=== PATIENT | male | born 1960 | race Caucasian/White ===

== ENCOUNTER 2021-03-28 08:01 | Outpatient (REF) | payer OTHER, SELFPAY ==
[2021-03-28 08:33] LABS: Hematocrit 48.8 % (42.0-52.0); Hemoglobin 16.1 g/dl (14.0-18.0); Mean Corpuscular Hemoglobin 29.6 pg (27.0-33.0); Mean Corpuscular Volume 89.7 fL (80.0-98.0); Mean Platelet Volume 10.4 fL (9.4-12.4); Platelet Count 189 X10*3/uL (160-400); Red Blood Count 5.44 X10*6/uL (4.60-5.80); Red Cell Distribution Width 13.9 % (11.0-16.0); White Blood Count 5.5 X10*3/uL (4.8-10.8)
[2021-03-28 08:56] LABS: Alanine Aminotransferase 33 U/L (0-40); Albumin Level 4.1 g/dL (3.5-5.0); Alkaline Phosphatase 77 U/L (39-117); Anion Gap 9 (12-20); Aspartate Amino Transferase 23 U/L (5-37); Bilirubin Total 0.6 mg/dL (0.0-1.0); Blood Urea Nitrogen 17 mg/dL (9-16); Calcium 9.8 mg/dL (8.4-10.2); Carbon Dioxide 27 mmol/L (22-29); Chloride 111 mmol/L (96-108); Cholesterol 210 mg/dL; Estimated Glomerular Filt Rate > 60; Glucose Fasting 107 mg/dL (60-99); HDL Cholesterol 41 mg/dL; Iron 93 mcg/dL (45-160); LDL Cholesterol Calculated 153 mg/dl; Percent Iron Saturation 37 % (15-50); Potassium 4.9 mmol/L (3.3-5.1); Sodium 142 mmol/L (135-145); Total Iron Binding Capacity 251 mcg/dL (228-428); Triglycerides 83 mg/dL; Unsaturated Iron Binding 158 ug/dL
[2021-03-28 09:01] LABS: Estimated Average Glucose 111 mg/dL; Hemoglobin A1c % 5.5 %
[2021-03-28 09:06] LABS: Rheumatoid Factor < 15.0 IU/mL (<15.0)
[2021-03-28 09:16] LABS: Vitamin D 25-OH Total 32.8 ng/mL (>30)
[2021-03-28 09:29] LABS: Folate 8.9 ng/mL (> or = 4.0); Vitamin B12 468 pg/mL (200-900)
[2021-03-28 09:47] LABS: Free T4 (Free Thyroxine) 0.85 ng/dL (0.71-1.85)
[2021-03-30 12:57] LABS: Anti Nuclear Antibody Screen NEGATIVE (NEGATIVE)
[2021-03-31 00:33] LABS: Cyclic Citrullinated Peptide <16 UNITS
[2021-04-03 15:02] LABS: Testosterone, Free 97.7 pg/mL (35.0-155.0); Testosterone, Total 517 ng/dL (250-1100)
== END 2021-03-28 08:02 | disposition home or self-care (01) ==
LOC: HO.LAB 08:01
PROVIDERS: PCP Physician Assistant; Visit Provider Physician Assistant
DX: Z13.220 Encounter for screening for lipoid disorders (principal); Z13.1 Encounter for screening for diabetes mellitus; D50.9 Iron deficiency anemia, unspecified; R53.82 Chronic fatigue, unspecified; R79.89 Other specified abnormal findings of blood chemistry
CPT/HCPCS: 36415; 80053; 80061; 82306; 82607; 82746; 83036; 83540; 84402; 84403; 84439; 84443; 85027; 86038; 86039; 86200; 86431

== ENCOUNTER 2022-03-13 07:56 | Outpatient (REF) | payer BC, SELFPAY ==
[2022-03-13 08:55] LABS: Hematocrit 49.8 % (42.0-52.0); Hemoglobin 16.5 g/dl (14.0-18.0); Mean Corpuscular HGB Conc 33.1 g/dl (31.0-36.0); Mean Corpuscular Hemoglobin 29.4 pg (27.0-33.0); Mean Corpuscular Volume 88.6 fL (80.0-98.0); Mean Platelet Volume 10.7 fL (9.4-12.4); Platelet Count 276 X10*3/uL (160-400); Red Blood Count 5.62 X10*6/uL (4.60-5.80); Red Cell Distribution Width 12.9 % (11.0-16.0); White Blood Count 5.9 X10*3/uL (4.8-10.8)
[2022-03-13 09:50] LABS: Alanine Aminotransferase 32 U/L (0-40); Albumin Level 4.3 g/dL (3.5-5.0); Alkaline Phosphatase 83 U/L (39-117); Anion Gap 13 (12-20); Aspartate Amino Transferase 20 U/L (5-37); Bilirubin Total 0.6 mg/dL (0.0-1.0); Blood Urea Nitrogen 16 mg/dL (9-16); Calcium 10.3 mg/dL (8.4-10.2); Carbon Dioxide 27 mmol/L (22-29); Chloride 107 mmol/L (96-108); Cholesterol 240 mg/dL; Estimated Glomerular Filt Rate > 60; Glucose Fasting 100 mg/dL (60-99); HDL Cholesterol 40 mg/dL; LDL Cholesterol Calculated 180 mg/dl; Sodium 142 mmol/L (135-145); TSH reflex Free T4 5.71 uIU/mL (0.32-4.0); Total Protein 7.1 g/dL (6.5-8.0); Triglycerides 100 mg/dL
[2022-03-13 11:08] LABS: Free T4 (Free Thyroxine) 1.07 ng/dL (0.71-1.85)
[2022-03-15 09:14] LABS: Lyme Abs Screen <0.90 index
[2022-03-20 13:39] LABS: Testosterone, Free 87.2 pg/mL (35.0-155.0); Testosterone, Total 570 ng/dL (250-1100)
[2022-03-22 11:29] LABS: Babesia IgG <1:64 titer (<1:64); Babesia IgM <1:20 titer (<1:20)
== END 2022-03-13 07:57 | disposition home or self-care (01) ==
LOC: HO.LAB 07:56
PROVIDERS: PCP Physician Assistant; Visit Provider Physician Assistant
DX: R79.89 Other specified abnormal findings of blood chemistry (principal); T14.8XXA Other injury of unspecified body region, initial encounter; Z13.220 Encounter for screening for lipoid disorders; Z13.1 Encounter for screening for diabetes mellitus; W57.XXXA Bitten or stung by nonvenomous insect and other nonvenomous arthropods, initial encounter; Y93.9 Activity, unspecified; Y92.9 Unspecified place or not applicable; Y99.9 Unspecified external cause status
CPT/HCPCS: 36415; 80053; 80061; 84402; 84403; 84439; 84443; 85027; 86617; 86618; 86753

== ENCOUNTER → 2022-03-28 07:56 | Outpatient (REF) | payer BC, SELFPAY ==
--- NOTE | 2022-03-28 08:03 | CA_ITS ---
Acquisition Time: 2022-03-28 08:17:11 Total Exercise Time: 00:12:00 Test Indications: CHRONIC FATIGUE Medications: Protocol: FRANKY Max HR: 171 BPM 106% of Pred: 160 BPM Max BP: 156/084 mmHG Max Work Load: 13.4 METS Exercise stress test with exercise 12 min of Franky protocol, achieving 105% MPHR, without anginal symptoms, with isolated PACs,and one atrial triplet, wiht normotensive response to exercise. with EKG changes meeting criteria for ischemia which corrects quickly in recovery then with residual borderline ST changes which could be nonspecific. Test reviewed with Dr Kevin Stone sent to PCP with report and recommendation for a stress echocardiogram for further evaluation. Referred By: Jp Yi Overread By: KAROLINA HAYENS
== END ==
LOC: HO.CARD 07:56
PROVIDERS: PCP Physician Assistant; Visit Provider Physician Assistant
DX: R53.82 Chronic fatigue, unspecified (principal)
CPT/HCPCS: 93017

== ENCOUNTER → 2022-04-06 10:51 | Outpatient (REF) | payer BC, SELFPAY ==
--- NOTE | 2022-04-06 10:55 | CA_ITS ---
Acquisition Time: 2022-04-06 11:21:31 Total Exercise Time: 00:12:00 Test Indications: ABN ETT Medications: SEE CHART Protocol: DYLON Max HR: 173 BPM 108% of Pred: 160 BPM Max BP: 196/100 mmHG Max Work Load: 13.4 METS Exercise stress test with exercise 12 min of Dylon protocol, achieving 100% MPHR 13.4 METs, without anginal symptoms, with isolated PAC, with hypertensive response to exercise with max BP 196/100, with borderline EKG change at peak, J point depression with slow upslope of ST then nonspecific ST sagging in recovery. Echo images obtained at rest and immediately post peak exercise. Definity contrast used. Test reviewed with Dr Benitez Referred By: Jp Yi Overread By: KAROLINA HAYNES
== END ==
LOC: HO.CARD 10:51
PROVIDERS: PCP Physician Assistant; Visit Provider Physician Assistant
DX: R94.39 Abnormal result of other cardiovascular function study (principal)
CPT/HCPCS: 93350; Q9957

== ENCOUNTER 2023-03-20 08:19 | Outpatient (AMB) | payer BC, SELFPAY ==
[2023-03-20 08:39] VITALS: BP 140/80; PULSE 72; O2SAT 97; BMI 27.8
--- NOTE | 2023-03-20 08:39 | A.OFFPC_ITS ---
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: No Accompanied by: Self / Same As Patient Allergies No Known Allergies Allergy (Verified 03/20/23 09:14) Medication List - Last Reconciled 03/20/23 by Jp Yi PA-C No Known Home Meds Tobacco use date assessed: 03/20/23 Dental Screening Dental Screen Date: 03/20/23 Did you have a dental visit in the last 12 months?: Yes Did you have a dental problem in the last 6 months where you did not have access to dental care?: No Was dental information given to patient?: Patient has dentist HPI Annual Exam HPI Details Patient is a 62 year-old male here today for annual physical PMHx : Throat cancer in s/p? chemo/ Radiation in 2018 , Report having chronic fatigue ever since? Has had low testoserone? and was placed on medication though never helped as chronic fatigue. Still continues to complain of s fatigue on exertion. He reports he is still able to run 3 miles though becomes very fatigued more than usual. We have done labs including Lyme testing and mono testing which were all negative. Does have an elevated TSH and was started on levothyroxine though felt it made no difference in stop medication. Has been trying to lose weight and has lost 15 lb since last office visit. He denies any chest discomfort or shortness of breath. . .. History of throat cancer: Has followed up with ENT specialist and received a fiberoptic scope without any recurrence of malignancy noted. .. hypothyroid: Patient's TSH is still remains slightly elevated. Was on levothyroxine in the past though felt it did not help him with his energy. Recommended to restart levothyroxine to help normalize his TSH number though patient declines at this time and still considering. Vaccine: UTD with COVID Vaccine,? Declines Flu vacine.? UTD with Tdap, declines Shindrex. .. Colon cancer screening:? Has not had a colonoscopy, declines further colonoscopies at this time. Of note does have a father who had pancreatic cancer in his 80s. 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 Current occupational exposures/hazards: No Cognitive needs: No Hearing needs: No Vision needs: Yes Questionnaire PHQ-9 Over the last 2 weeks, how often have you been bothered by any of the following problems? 1. Little interest or pleasure in doing things: not at all 2. Feeling down, depressed, or hopeless: not at all 3. Trouble falling or staying asleep, or sleeping too much: not at all 4. Feeling tired or having little energy: not at all 5. Poor appetite or overeating: not at all 6. Feeling bad about yourself - or that you are a failure or have let yourself or your family down: not at all 7. Trouble concentrating on things, such as reading the newspaper or watching television: not at all 8. Moving or speaking so slowly that other people could have noticed. Or the opposite - being so fidgety or restless that you have been moving around a lot more than usual: not at all Depression Screening Interpretation: Negative Depression Screening Done: Yes 35468 - PHQ-9 Billing: Yes Source: Developed by Drs. Steve Gutierrez, Tala Pelletier, Shaquille Christine and colleagues, with an educational shahida from [employer]. Thrive Questionnaire Date Thrive assessed: 03/20/23 I am a: Patient What is your living situation today?: I have a steady place to live Within the past 12 months, did the food you bought not last and you didn't have the money to get more?: Never true Within the past 12 months, did you worry whether your food would run out before you got money to buy more?: Never true Do you have trouble paying for medicines?: No Do you have trouble getting transportation to medical appointments?: No Do you have trouble paying your heating and electricity bill?: No Do you have trouble taking care of your child, family member or friend?: No Do you have trouble with day-to-day activities such as bathing, preparing meals, shopping, managing finances, etc.?: No Are you currently unemployed and looking for a job?: No Are you interested in more education?: No Please select the resources that you would like help with: None Currently or been in a relationship where the following occur: no concerns reported AUDIT C Alcohol Use Questionnaire (AUDIT-C) 1. How often do you have a drink containing alcohol?: Never 3. How often do you have six or more drinks on one occasion?: Never Total Score: 0 NEEL-7 AMB Questionnaire NEEL-7 Date NEEL - 7 assessed: 03/20/23 Feeling nervous, anxious, or on edge: 0 = Not at all Not being able to stop or control worryin = Not at all Worrying too much about different things: 0 = Not at all Trouble relaxin = Not at all Being so restless that it is hard to sit still: 0 = Not at all Becoming easily annoyed or irritable: 0 = Not at all Feeling afraid as if something awful might happen: 0 = Not at all Total NEEL-7 score (0-4 normal; 5-9 mild; 10-14 moderate; 15-21 severe): 0 Source: Developed by Drs. Steve Gutierrez, Tala Pelletier, Shaquille Christine and colleagues, with an educational shahida from [employer]. NEEL-7 Assessment Billing NEEL-7 Assessment Tool: NEEL-7 Assessment 51400 Review of Systems Const Denies body aches, Denies chills, Denies excessive sweating, Denies fatigue, Denies fever(s) and Denies headache(s) Eyes Denies blurry vision ENT Denies dysphagia, Denies vertigo, Denies dizziness, Denies headache(s), Denies hearing loss and Denies tinnitus Card Denies chest pain, Denies chest pain with activity, Denies syncope, Denies irregular heart rhythm and Denies dyspnea Resp Denies chest congestion, Denies cough, Denies hemoptysis, Denies dyspnea and Denies wheezing GI Denies abdominal pain, Denies melena, Denies hematochezia, Denies coffee ground emesis, Denies dysphagia, Denies diarrhea, Denies nausea and Denies vomiting Denies difficulty urinating, Denies dysuria, Denies urinary frequency, Denies urinary hesitancy and Denies urinary urgency Musc Denies arthralgias, Denies limited range of motion, Denies muscle cramps and Denies muscle weakness Skin/Breast Denies rash and Denies skin ulcer Neuro Denies Abnormal speech present, Denies confusion, Denies vertigo, Denies dizziness, Denies syncope, Denies headache(s), Denies memory loss and Denies seizure-like activity Psych Denies anxiety, Denies confusion, Denies depression, Denies memory loss, Denies panic attacks and Denies paranoia Endo Denies excessive sweating, Denies fatigue, Denies flushing, Denies polydipsia and Denies polyuria Aller/Immun Denies wheezing Physical exam (Primary Care) Vital Signs: Last Vital Signs Pulse 72 03/20/23 08:39 BP 140/80 H 03/20/23 08:39 Pulse Ox 97 03/20/23 08:39 Oxygen Delivery Method Room Air 03/20/23 08:39 BMI result Body Mass Index 27.8 Tobacco/Smoking Status: Tobacco use Status Tobacco use date assessed 03/20/23 03/20/23 08:46 Patient Tobacco Use Status Never used Tobacco 03/20/23 09:18 e-Cigarette/Vaping Use Never Used 03/20/23 09:18 Depression Screening Interpretation: Negative Thrive Assessment: Date of Thrive Assessment Date Thrive assessed 03/20/23 03/20/23 08:46 Currently or been in a relationship where the following occur: no concerns reported Const General: cooperative, comfortable, no acute distress, alert and awake; No confusion Orientation/consciousness: oriented to person, oriented to place, patient oriented x3 and No confusion HENMT Head: Yes normocephalic Ears: external ears normal and TM's normal bilaterally Face and sinus: No sinus tenderness Mouth: Normal oral and palatal mucosa present and tongue normal Teeth and gingiva: dentition normal and gingiva normal Throat: Yes posterior oropharynx normal, Yes tonsils normal and Yes uvula midline Eyes Conjunctivae: conjunctivae normal Sclerae: sclerae normal Pupils: Equal, round and reactive pupils present EOM: EOMs intact bilaterally Direct Ophthalmoscopy: No no photophobia Neck Neck: Yes no lymphadenopathy, No tender and Yes no JVD Thyroid: Thyroid normal Carotids: no bruits Chest Chest palpation & inspection: no tenderness Resp Effort & Inspection: normal respiratory effort, no audible wheezes, not labored and no stridor Auscultation: no crackles, no rales, no rhonchi and no wheezes Cardio Jugular venous distension: no JVD Rate: regular rate, not bradycardic and not tachycardic Rhythm: regular rhythm Bruits: no carotid bruits Peripheral pulses: Peripheral pulses 2+ throughout GI Inspection: Yes normal to inspection, No abdominal wall ecchymosis and No visible herniation Palpation (GI): Soft to palpation, nontender, no guarding, not rigid and No hepatosplenomegaly present Auscultation: normoactive bowel sounds General: Yes no CVA tenderness Back/Spine/Pelvis Back: no CVA tenderness and No back tenderness Cervical Spine: cervical ROM normal Thoracic/Lumbar Spine: thoracic and lumbar spine normal to inspection, straight leg raise negative bilaterally, No thoraco-lumbar ROM limited and No lumbar spinal tenderness Skin Lesions: no lesions Rashes: no rashes Wounds: no wounds Neuro General: oriented to person, oriented to place, patient oriented x3, CN's II-XI intact bilaterally and No confusion Cranial nerves: Yes Equal, round and reactive pupils present and Yes Normal accommodation reflex present Cognition (Neuro): normal cognition Speech: No Abnormal speech present Gait exam (Neuro): Normal gait present Motor exam (neuro): 5/5 motor strength present throughout Extrem Right upper extremity: full ROM; no cyanosis Left upper extremity: full ROM; no cyanosis Right lower extremity: no edema Left lower extremity: no edema Psych Appearance: grossly normal Mental Status: mental status grossly normal Affect: normal affect Attitude: cooperative Thought process: Normal thought process present Assessment and Plan Assessment & Plan (1) Annual physical exam: Code(s): Z00.00 - Encounter for general adult medical examination without abnormal findings (2) Chronic fatigue: Code(s): R53.82 - Chronic fatigue, unspecified Plan: Unclear etiology to patient's chronic fatigue. Does hypothyroidism and felt that levothyroxine was not effective on reducing his insertional fatigue. We have sent him for cardiac echo exercise stress testing which was normal. (3) Elevated TSH: Code(s): R79.89 - Other specified abnormal findings of blood chemistry Plan: Patient's most recent labs showing elevated TSH. Was previously on levothyroxin e in the past though did not feel it was affective on reducing his chronic fatigue. (4) Elevated blood pressure reading: Code(s): R03.0 - Elevated blood-pressure reading, without diagnosis of hypertension Plan: Noted elevated blood pressure today in office. He does report having several c ups of coffee a day which he attributes to his high blood pressure. Will try to reduce his caffeine intake. Advised to monitor blood pressure at home with goal blood pressure to be below 140/90 Coding Level of Care Code Est Pt Prev Care 40-64y(86119) Diagnoses Annual physical exam Z00.00 Chronic fatigue R53.82 Elevated TSH R79.89 Elevated blood pressure reading R03.0 Additional Codes NEEL-7 Assessment Billing - NEEL-7 Assessment Tool: NEEL-7 Assessment 42412 ([id number])
== END 2023-03-20 09:34 | disposition home or self-care (01) ==
PROVIDERS: Visit Provider Physician Assistant
DX: Z00.00 Encounter for general adult medical examination without abnormal findings (principal); R53.82 Chronic fatigue, unspecified; R79.89 Other specified abnormal findings of blood chemistry; R03.0 Elevated blood-pressure reading, without diagnosis of hypertension
CPT/HCPCS: 99396

== ENCOUNTER 2024-03-23 07:55 | Outpatient (AMB) | payer OTHER, SELFPAY ==
--- NOTE | 2024-03-23 07:58 | A.OFFPC_ITS ---
Vital Signs 03/23/24 08:01 Height 6 ft 2 in Weight 228 lb BMI 29.3 BP 150/98 H Blood Pressure Location Lt brachial Position Sitting Pulse 68 Pulse Source Pulse Oximeter Pulse Oximetry (%) 98 Oxygen Delivery Method Room Air Intake Visit Reasons: Annual Exam Intake Note: Patient here for an annual physical exam Sports Commentator Required: No Accompanied by: Self / Same As Patient Allergies No Known Allergies Allergy (Verified 03/23/24 08:07) Medication List - Last Reconciled 03/23/24 by Jp Yi PA-C No Known Home Meds Tobacco use date assessed: 03/23/24 Dental Screening Dental Screen Date: 03/23/24 Did you have a dental visit in the last 12 months?: Yes Did you have a dental problem in the last 6 months where you did not have access to dental care?: No Was dental information given to patient?: Patient has dentist HPI Annual Exam HPI Details Patient is a 63 year-old male here today for annual physical PMHx : Throat cancer in s/p? chemo/ Radiation in 2018 , Report having chronic fatigue ever since? Has had low testoserone? and was placed on medication though never helped as chronic fatigue. Noted elevated blood pressure reading today in office. He does admit to drinking quite a bit of coffee per day Still continues to complain of s fatigue on exertion. He reports he is still able to run 3 miles though becomes very fatigued more than usual. We have done labs including Lyme testing and mono testing which were all negative. Does have an elevated TSH and was started on levothyroxine though felt it made no differe nce in stop medication. We have done cardiac stress testing including an echo stress which essentially was stable He denies any chest discomfort or shortness of breath. We done some preliminary tick-borne illness testing though was negative. .. History of throat cancer: Has followed up with ENT specialist and received a fiberoptic scope without any recurrence of malignancy noted. .. hypothyroid: Patient's TSH is still remains slightly elevated. Was on levothyroxine in the past though felt it did not help him with his energy. Recommended to restart levothyroxine to help normalize his TSH number though patient declines at this time and still considering. Vaccine: UTD with COVID Vaccine,? Declines Flu vacine.? UTD with Tdap, declines Shingrex. .. Colon cancer screening:? Has not had a colonoscopy, declines further colonoscopies at this time. Of note does have a father who had pancreatic cancer in his 80s. 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 Current occupational exposures/hazards: No Cognitive needs: No Hearing needs: No Vision needs: Yes Questionnaire PHQ-9 Over the last 2 weeks, how often have you been bothered by any of the following problems? 1. Little interest or pleasure in doing things: not at all 2. Feeling down, depressed, or hopeless: not at all 3. Trouble falling or staying asleep, or sleeping too much: nearly every day 4. Feeling tired or having little energy: nearly every day 5. Poor appetite or overeating: not at all 6. Feeling bad about yourself - or that you are a failure or have let yourself or your family down: not at all 7. Trouble concentrating on things, such as reading the newspaper or watching television: not at all 8. Moving or speaking so slowly that other people could have noticed. Or the opposite - being so fidgety or restless that you have been moving around a lot more than usual: not at all 9. Thoughts that you would be better off or of hurting yourself in some way: not at all Total score: 6 Depression Screening Interpretation: Negative Depression Screening Done: Yes 96850 - PHQ-9 Billing: Yes Source: Developed by Drs. Steve Gutierrez, Tala Pelletier, Shaquille Christine and colleagues, with an educational shahida from [employer]. Thrive Questionnaire Date Thrive assessed: 03/23/24 I am a: Patient What is your living situation today?: I have a steady place to live Within the past 12 months, did the food you bought not last and you didn't have the money to get more?: Never true Within the past 12 months, did you worry whether your food would run out before you got money to buy more?: Never true Do you have trouble paying for medicines?: No Do you have trouble getting transportation to medical appointments?: No Do you have trouble paying your heating and electricity bill?: No Do you have trouble taking care of your child, family member or friend?: No Do you have trouble with day-to-day activities such as bathing, preparing meals, shopping, managing finances, etc.?: No Are you currently unemployed and looking for a job?: No Are you interested in more education?: No Please select the resources that you would like help with: None Currently or been in a relationship where the following occur: No concerns repo rted THRIVE Score: 0 AUDIT C Alcohol Use Questionnaire (AUDIT-C) 1. How often do you have a drink containing alcohol?: Monthly or less 2. How many drinks containing alcohol do you have on a typical day when you are drinking?: 1 or 2 3. How often do you have six or more drinks on one occasion?: Never Total Score: 1 NEEL-7 AMB Questionnaire NEEL-7 Date NEEL - 7 assessed: 03/23/24 Feeling nervous, anxious, or on edge: 0 = Not at all Not being able to stop or control worryin = Not at all Worrying too much about different things: 0 = Not at all Trouble relaxin = Not at all Being so restless that it is hard to sit still: 0 = Not at all Becoming easily annoyed or irritable: 0 = Not at all Feeling afraid as if something awful might happen: 0 = Not at all Total NEEL-7 score (0-4 normal; 5-9 mild; 10-14 moderate; 15-21 severe): 0 Source: Developed by Drs. Steve Gutierrez, Tala Pelletier, Shaquille Christine and colleagues, with an educational shahida from [employer]. NEEL-7 Assessment Billing NEEL-7 Assessment Tool: NEEL-7 Assessment 66377 Review of Systems Const Denies body aches, Denies chills, Reports daytime sleepiness, Denies excessive sweating, Reports fatigue, Denies fever(s), Denies headache(s), Reports lethargy, Reports malaise and Reports weight gain Eyes Denies blurry vision ENT Denies dysphagia, Denies vertigo, Denies dizziness, Denies headache(s), Denies hearing loss and Denies tinnitus Card Denies chest pain, Denies chest pain with activity, Denies syncope, Denies irregular heart rhythm and Denies dyspnea Resp Denies chest congestion, Denies cough, Denies hemoptysis, Denies dyspnea and Denies wheezing GI Denies abdominal pain, Denies melena, Denies hematochezia, Denies coffee ground emesis, Denies dysphagia, Denies diarrhea, Denies nausea and Denies vomiting Denies difficulty urinating, Denies dysuria, Denies urinary frequency, Denies urinary hesitancy and Denies urinary urgency Musc Denies arthralgias, Denies limited range of motion, Denies muscle cramps and Denies muscle weakness Skin/Breast Denies rash and Denies skin ulcer Neuro Denies Abnormal speech present, Denies confusion, Denies vertigo, Denies dizziness, Denies syncope, Denies headache(s), Denies memory loss and Denies seizure-like activity Psych Denies anxiety, Denies confusion, Denies depression, Denies memory loss, Denies panic attacks and Denies paranoia Endo Denies excessive sweating, Reports fatigue, Denies flushing, Denies polydipsia and Denies polyuria Aller/Immun Denies wheezing Physical exam (Primary Care) Vital Signs: Last Vital Signs Pulse 68 03/23/24 08:01 BP 150/98 H 03/23/24 08:01 Pulse Ox 98 03/23/24 08:01 Oxygen Delivery Method Room Air 03/23/24 08:01 BMI result Body Mass Index 29.3 Tobacco/Smoking Status: Tobacco use Status Tobacco use date assessed 03/23/24 03/23/24 08:08 Patient Tobacco Use Status Never used Tobacco 03/23/24 08:11 e-Cigarette/Vaping Use Never Used 03/23/24 08:11 PHQ-9: PHQ-9 Score PHQ-9: Total score 6 03/24/24 07:39 Depression Screening Interpretation: Negative Thrive Assessment: Date of Thrive Assessment Date Thrive assessed 03/23/24 03/23/24 08:06 Currently or been in a relationship where the following occur: No concerns reported Const General: cooperative, comfortable, no acute distress, alert and awake; No confusion Orientation/consciousness: oriented to person, oriented to place, patient oriented x3 and No confusion HENMT Head: Yes normocephalic Ears: external ears normal and TM's normal bilaterally Face and sinus: No sinus tenderness Mouth: Normal oral and palatal mucosa present and tongue normal Teeth and gingiva: dentition normal and gingiva normal Throat: Yes posterior oropharynx normal, Yes tonsils normal and Yes uvula midline Eyes Conjunctivae: conjunctivae normal Sclerae: sclerae normal Pupils: Equal, round and reactive pupils present EOM: EOMs intact bilaterally Direct Ophthalmoscopy: No no photophobia Neck Neck: Yes no lymphadenopathy, No tender and Yes no JVD Thyroid: Thyroid normal Carotids: no bruits Chest Chest palpation & inspection: no tenderness Resp Effort & Inspection: normal respiratory effort, no audible wheezes, not labored and no stridor Auscultation: no crackles, no rales, no rhonchi and no wheezes Cardio Jugular venous distension: no JVD Rate: regular rate, not bradycardic and not tachycardic Rhythm: regular rhythm Bruits: no carotid bruits Peripheral pulses: Peripheral pulses 2+ throughout GI Inspection: Yes normal to inspection, No abdominal wall ecchymosis and No visible herniation Palpation (GI): Soft to palpation, nontender, no guarding, not rigid and No hepatosplenomegaly present Auscultation: normoactive bowel sounds General: Yes no CVA tenderness Back/Spine/Pelvis Back: no CVA tenderness and No back tenderness Cervical Spine: cervical ROM normal Thoracic/Lumbar Spine: thoracic and lumbar spine normal to inspection, straight leg raise negative bilaterally, No thoraco-lumbar ROM limited and No lumbar spinal tenderness Skin Lesions: no lesions Rashes: no rashes Wounds: no wounds Neuro General: oriented to person, oriented to place, patient oriented x3, CN's II-XI intact bilaterally and No confusion Cranial nerves: Yes Equal, round and reactive pupils present and Yes Normal accommodation reflex present Cognition (Neuro): normal cognition Speech: No Abnormal speech present Gait exam (Neuro): Normal gait present Motor exam (neuro): 5/5 motor strength present throughout Extrem Right upper extremity: full ROM; no cyanosis Left upper extremity: full ROM; no cyanosis Right lower extremity: no edema Left lower extremity: no edema Psych Appearance: grossly normal Mental Status: mental status grossly normal Affect: normal affect Attitude: cooperative Thought process: Normal thought process present Office Procedures Flu Questionnaire Does the patient have a severe egg allergy?: No Immunizations Fluarix Triv [id number] (PF) 45 mcg (15 mcg x 3)/0.5 mL IM syringe Performing Provider: Jp Yi PA-C [facility] Documented (not given) by: LEVI Santacruz on 03/23/24 08:06 Reason Not Given: Patient Refused Coding Level of Care Code Est Pt Prev Care 40-64y(72917) Diagnoses Annual physical exam Z00.00 Elevated TSH R79.89 Screening for diabetes mellitus (DM) Z13.1 Mixed hyperlipidemia E78.2 Hyperlipidemia type: mixed hyperlipidemia Colon cancer screening declined Z53.20 Chronic fatigue syndrome G93.32 Additional Codes NEEL-7 Assessment Billing - NEEL-7 Assessment Tool: NEEL-7 Assessment 65699 ([id number]) PHQ-9 - 25703 - PHQ-9 Billing: Yes ([id number]) Assessment & Plan Assessment & Plan (1) Annual physical exam: Code(s): Z00.00 - Encounter for general adult medical examination without abnormal findings Category: Medical Plan: As per HPI (2) Elevated TSH: Code(s): R79.89 - Other specified abnormal findings of blood chemistry Category: Medical Plan: As per HPI P, patient does hypothyroidism evidenced by elevated TSH. Has been on levothyroxine in the past though never felt any different. Of note well on levothyroxine at did stabilize his TSH numbers though again did not feel much different from a clinical standpoint. (3) Screening for diabetes mellitus (DM): Code(s): Z13.1 - Encounter for screening for diabetes mellitus Category: Medical Plan: As per HPI (4) HLD (hyperlipidemia): Code(s): E78.5 - Hyperlipidemia, unspecified Category: Medical Qualifiers: Hyperlipidemia type: mixed hyperlipidemia Qualified Code(s): E78.2 - Mixed hyperlipidemia Plan: Patient's most recent lipid panel showing high cholesterol 240. Will continue to work on lifestyle and dietary modifications. (5) Colon cancer screening declined: Code(s): Z53.20 - Procedure and treatment not carried out because of patient's decision for unspecified reasons Category: Medical Plan: Declines any sort of colon cancer screening. Of note has a family history of pancreatic cancer (6) Chronic fatigue syndrome: Code(s): G93.32 - Myalgic encephalomyelitis/chronic fatigue syndrome Category: Medical Plan: As per HPI patient has had several years chronic fatigue particularly on physical exertion. He reports he is not able to be as physically as he once was due to his continued fatigue. He reports he sleeps well at night and gets 7-8 hours of restless sleep at night though never feels completely rested when he wakes up. We did discuss possibly doing a home sleep study to see if he has a obstructive sleep apnea though has not been told he had any apneic episodes or excessive snoring at night by his . We have done extensive workup including testosterone testing, lab testing, stress echo and tick-borne illness testing though has been unrevealing. He will reach out to tick-borne illness specialist in [place] ( Dr rojas) Orders: Orders Influenza [id number] Immunization 03/23/24 Z23 - Encounter for immunization Comprehensive [place]. Panel Fast 03/23/24 Z13.1 - Encounter for screening for diabetes mellitus TSH reflex Free T4 03/23/24 R79.89 - Other specified abnormal findings of blood chemistry Complete Blood Count no Diff 03/23/24 R79.89 - Other specified abnormal findings of blood chemistry Prostate Specific Antigen Scr 03/23/24 R79.89 - Other specified abnormal findings of blood chemistry, Z12.5 - Encounter for screening for malignant neoplasm of prostate Lipid Panel 03/23/24 E78.2 - Mixed hyperlipidemia
[2024-03-23 08:01] VITALS: BP 150/98; PULSE 68; O2SAT 98; BMI 29.3
== END 2024-03-23 08:35 | disposition home or self-care (01) ==
PROVIDERS: PCP Physician Assistant; Visit Provider Physician Assistant
DX: Z23 Encounter for immunization (principal)

== ENCOUNTER → 2024-03-23 07:55 | Outpatient (BNVA) | payer OTHER, SELFPAY | PROVIDERS: PCP Physician Assistant; Visit Provider Physician Assistant | DX: Z00.00 Encounter for general adult medical examination without abnormal findings (principal); R94.6 Abnormal results of thyroid function studies; E78.2 Mixed hyperlipidemia; G93.32 Myalgic encephalomyelitis/chronic fatigue syndrome | CPT/HCPCS: 90471; 96127 ==

== ENCOUNTER 2024-04-21 07:50 | Outpatient (REF) | payer OTHER, SELFPAY ==
[2024-04-21 08:32] LABS: Hematocrit 50.6 % (42.0-52.0); Hemoglobin 16.6 g/dl (14.0-18.0); Mean Corpuscular HGB Conc 32.8 g/dl (31.0-36.0); Mean Corpuscular Hemoglobin 29.3 pg (27.0-33.0); Mean Corpuscular Volume 89.2 fL (80.0-98.0); Mean Platelet Volume 10.5 fL (9.4-12.4); Platelet Count 197 X10*3/uL (160-400); Red Blood Count 5.67 X10*6/uL (4.60-5.80); Red Cell Distribution Width 13.6 % (11.0-16.0)
[2024-04-21 09:12] LABS: Alanine Aminotransferase 30 U/L (0-40); Albumin Level 4.3 g/dL (3.5-5.0); Alkaline Phosphatase 72 U/L (39-117); Anion Gap 11 (12-20); Aspartate Amino Transferase 27 U/L (5-37); Bilirubin Total 0.8 mg/dL (0.0-1.0); Blood Urea Nitrogen 17 mg/dL (9-16); Carbon Dioxide 25 mmol/L (22-29); Chloride 110 mmol/L (96-108); Cholesterol 209 mg/dL (<200); Estimated Glomerular Filt Rate > 60; Glucose Fasting 104 mg/dL (60-99); HDL Cholesterol 44 mg/dL (>40); LDL Cholesterol Calculated 147 mg/dL (<100); Potassium 4.7 mmol/L (3.3-5.1); Sodium 141 mmol/L (135-145); Total Protein 7.5 g/dL (6.5-8.0); Triglycerides 90 mg/dL (<150)
[2024-04-21 09:18] LABS: Prostate Specific Antigen Scr 3.23 ng/mL (<0.05-4.0)
[2024-04-21 09:30] LABS: TSH reflex Free T4 4.21 uIU/mL (0.32-4.0)
[2024-04-21 10:30] LABS: Free T4 (Free Thyroxine) 0.97 ng/dL (0.71-1.85)
== END 2024-04-21 07:51 | disposition home or self-care (01) ==
LOC: HO.LAB 07:50
PROVIDERS: PCP Physician Assistant; Visit Provider Physician Assistant
DX: R79.89 Other specified abnormal findings of blood chemistry (principal)
CPT/HCPCS: 36415; 80053; 80061; 84153; 84439; 84443; 85027

== ENCOUNTER 2024-04-28 12:31 | Outpatient (REF) | payer OTHER, SELFPAY ==
--- NOTE | ~2024-04-28 | CT_ITS ---
CLINICAL HISTORY: K42.9 - Umbilical hernia without obstruction or gangrene CT abdomen and pelvis with contrast Comparison: None Findings: No consolidation or effusion. Benign-appearing cysts within the left hepatic lobe measuring up to 2.3 cm. The gallbladder and biliary tree, spleen, pancreas and adrenal glands are unremarkable. Bilateral benign-appearing renal cysts, the largest measuring 7.3 cm arising from the left lower pole. Punctate nonobstructing stone in the mid right kidney. Indeterminate lesion arises exophytically from the posterior aspect of the right kidney measuring 1.9 cm on image 27 of series 3. No bowel obstruction, pneumoperitoneum, or pneumatosis. There is a fat-containing inguinal hernia that also contains a small portion of sigmoid colon. No inflammatory change. Bladder and prostate are unremarkable. Normal appendix. No adenopathy or fluid collections. Patent vasculature. No acute fracture. IMPRESSION: 1. Left inguinal hernia containing fat and small amount of sigmoid colon. No inflammation or obstruction. 2. Indeterminate exophytic mass arising from the posterior aspect of the right kidney. Recommend further characterization with MRI abdomen with and without contrast. At a minimum follow-up ultrasound is recommended. 3. Benign-appearing hepatic and renal cysts. This document has been electronically signed by: Audrey Sal MD on 04/29/2024 08:45:06
--- OUTSIDE RECORDS SUMMARY | 2024-04-28 13:26 | XMS_ITS | Data Portability ---
Author Organization [place] - [facility], Allergy Address [address] [address] Care Team Providers Care Fnps Name Role Phone YURIDIA MURGUIA Primary Care Provider Assessment Encounter Date Assessment Date Assessment LastModified by Organization Details LastModified Time 12/20/2023 12/20/2023 No evidence of disease on examination today. Fiberoptic examination of nasopharynx, hypopharynx and larynx was stable. Cancer surveillance in 12 months was recommended. He is aware that Dr Arnold dplosky Not available 12/20/2023 14:36:05 Plan of Treatment Reminders Order Date Submit Date Provider Last Modified By Organization Details Last Modified Time Details Appointments Establish ed 15 2024 09:00A M ZACH PERERA MD Not available Not available Not available Lab None recorded. Referral None recorded. Procedures None recorded. Surgeries None recorded. Imaging None recorded. Medication Orders None recorded. Patient TargetsNo targets recorded. Patient InstructionsNo instructions recorded. Reason for Referral None Reported. Problems Name Problem SNOMED Code Status Onset Date Resolution Date Notes Provider Name and Address Organization Details Recorded Time Gastroeso phageal reflux disease without esophagit is 696533453 Active 2016 Gastro-es ophageal reflux disease without esophagit is; Note: Date Diagnosed : 01/04/2017 9:54 AM (K21.9) Not Available [facility] 4 03:05:25 Sensorine ural hearing loss of bilateral ears 993424700 Active 2015 Sensorine ural hearing loss, bilateral ; Note: Date Diagnosed : 04/21/2015 11:21 AM (H90.3) Not Available [facility] 4 03:05:26 Follow-up visit Active 2019 Encounter for follow-up examinati on after completed treatment for malignant neoplasm; Note: Date Diagnosed : 04/13/2019 12:29 PM (Z08) Not Available [facility] 4 03:05:24 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; Note: Date Diagnosed : 5 10:04 AM (D37.02) Not Available [facility] 4 03:05:25 History of malignant neoplasm of tongue 890613001 Active 2019 Personal history of malignant neoplasm of tongue; Note: Date Diagnosed : 04/13/2019 12:29 PM (Z85.810) Not Available [facility] 4 03:05:26 Bilateral tinnitus 33095012982 02 Active 2015 Tinnitus, bilateral ; Note: Date Diagnosed : 03/08/2016 9:16 AM (H93.13) Not Available [facility] 4 03:05:24 Primary malignant neoplasm of base of tongue 09618945 Active 2014 Malignant neoplasm of dorsal surface of base of tongue; Note: Date Diagnosed : 03/03/2015 1:35 PM (C01) Not Available [facility] 4 03:05:25 History of primary malignant neoplasm of base of tongue 97224956118 642608 Active 2023 Primary tumor location: left base of the tongue Tumor staging: T2N2b SCCA Treatment : XRT chemo Date of treatment completio n:05/2015 Oncology team: Dr Arnold/Jostin PERERA MD [address] [place] [address], [phone] , [facility] - [facility] 4 19:32:40 Problem Notes None recorded. Procedures Surgical History Date Name Laterality Status Provider Name and Address Organization Details Recorded Time 12/20/2023 FOL_DP completed ZACH PERERA MD [address] [place] [address], [phone], [facility] - [facility] 12/19/2023 19:33:58 Imaging Results None recorded. Procedure Notes None recorded. Medical Equipment None Reported. Allergies No known drug allergies Medications Name Sig Start Date Stop Date Status Note LastModified by Organization Details LastModified Time clindamyc in HCl 300 mg capsule 1 capsule by mouth 12/19 completed Medicati on ID: [id number] D uration Value: 5 Prescri bed By Name: Narayan Morales nd Name: clindamy edwin HCl Send Method: E-Prescr ibed Sub s Allowed: subs OK Medic ationGen ericName : clindamy edwin HCl Not Available Not Available Not Available ibuprofen 800 mg tablet 12/19 completed Medicati on ID: [id number] Du ration Value: 10 Brand Name: ibuprofe n Send Method: E-Prescr ibed Sub s Allowed: subs OK Speci al Instruct ion: TAKE 1 TABLET BY MOUTH TWICE A DAY FOR 10 DAYS NEEDED M yamileth Prolayla Name: ibuprofe n Not Available Not Available Not Available Peridex 0.12 % mouthwash 12/19 completed Medicati on ID: [id number] P rescribe d By Name: Narayan Morales nd Name: Peridex Send Method: E-Prescr ibed Sub s Allowed: subs OK Speci al Instruct ion: 10 ml swish and spit TID x 2 week Med icationG enericNa me: Peridex Not Available Not Available Not Available oxycodone 5 mg/5 mL oral solution 5-10 ml by mouth 12/19 completed Medicati on ID: [id number] D uration Value: 7 Prescri bed By Name: Narayan Morales nd Name: oxycodon e Send Method: E-Prescr ibed Sub s Allowed: subs OK Medic ationGen ericName : oxycodon e Not Available Not Available Not Available Percocet 5 mg-325 mg tablet 1-2 tablet by mouth 12/19 completed Medicati on ID: [id number] Pr escribed By Name: Narayan Morales nd Name: Percocet Send Method: E-Prescr ibed Sub s Allowed: subs OK Medic ationGen ericName : Percocet Not Available Not Available Not Available Ciprodex 0.3 %-0.1 % ear drops,anyi pension 01/12 completed Medicati on ID: [id number] Du ration Value: 7 Reason: () Brand Name: Ciprodex Send Method: E-Prescr ibed Sub s Allowed: subs OK Speci al Instruct ion: PLACE 4 DROPS IN AFFECTED EAR(S) 2 TIMES PER DAY FOR 7 DAYS Med icationG enericNa me: Ciprodex Not Available Not Available Not Available Vitals Date Recorded Body height Body weight Provider Name and Address Organization Details Last Updated DateTime 12/20/2023 187.96 cm 78667.32 g Ivana Baron [place] - [facility] 12/20/2023 14:20:30 Social History None recorded. Functional Status None recorded. Mental Status None recorded. Family History Nothing Reported. Medical History No medical history recorded. Past Encounters Encounter ID Performer Location Encounter Start Date Encounter Closed Date Diagnosis/Indication Diagnosis SNOMED-CT Code Diagnosis ICD10 Code Diagnosis Note [id number] ZACH PERERA MD [facility] [address] [address] 12/20/2023 13:46:57 12/20/2023 14:39:12 History of primary malignant neoplasm of base of tongue [id number] Z85.810 Health Concerns Section Related Observation LastModified by Organization Detai ls LastModified Time None Recorded Concern Status LastModified by Organization Details LastModified Time None Recorded Advance Directives Directive None Recorded Payers Encounter Date Sequence Insurance Name Policy Number Policy Jackson Covered Member ID Jackson Member ID Guarantor Name 12/20/2023 1 [employer] [id number] Andre Lawler [id number] Andre Lawler Notes Date Note Type Note Provider Name and Address Organization Details Recorded Time 12/20/2023 text/html Primary tumor location: left base of the tongueTumor staging: T2N2b SCCATreatment: XRT chemoDate of treatment completion:05/2015 Oncology team: Dr Arnold/Debra no health changes ZACH PERERA MD [address] [place] [address], [phone], [facility] - [facility] 12/20/2023 14:36:24
[2024-04-28] MEDS: iohexoL 350 MG/ML 100 ML INFUS..BTL IV (14:02)
== END 2024-04-28 12:32 | disposition home or self-care (01) ==
LOC: HO.CT 12:31
PROVIDERS: PCP Physician Assistant; Visit Provider Physician Assistant
DX: K42.9 Umbilical hernia without obstruction or gangrene (principal)
CPT/HCPCS: 74177; Q9967

== ENCOUNTER → 2024-04-28 12:33 | Outpatient (BNV) | payer OTHER, SELFPAY | PROVIDERS: PCP Physician Assistant; Visit Provider Radiology Diagnostic Radiology | DX: K40.90 Unilateral inguinal hernia, without obstruction or gangrene, not specified as recurrent (principal); K56.41 Fecal impaction; K76.89 Other specified diseases of liver; N28.89 Other specified disorders of kidney and ureter | CPT/HCPCS: 74177 ==

== ENCOUNTER 2024-05-05 09:36 | Outpatient (AMB) | payer OTHER, SELFPAY ==
--- NOTE | 2024-05-05 09:40 | MHC.OFFVIS ---
Vital Signs 05/05/24 09:46 Height 6 ft 2 in Weight 232 lb BMI 29.8 Position Sitting BP not taken reason Patient Refused Pulse 76 Intake Visit Reasons: Unilateral inguinal hernia Intake Note: Patient referred by pcp Jp Yi PA-C for Unilateral inguinal hernia. Patient c/o: discomfort on LLQ. Denies trauma. Noticed after weight lifting. Abd/ pelvis US: 04-28-2024 [employer] Manager Required: No Allergies No Known Allergies Allergy (Verified 05/05/24 09:45) HPI Comments Details: Patient presents for evaluation of a symptomatic enlarging left inguinal hernia. He has had this several weeks time. His increasing in size and becoming more prominent. He would like to have repaired. He has no other GI issues or complaints. He does do occasional heavy lifting and workouts. Patient tolerates a regular diet. He is regular bowel habits. Chart was reviewed and patient evaluated. 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 Patient also has an incidental finding of a right kidney lesion which is being scheduled for follow-up with Urology. 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 Current occupational exposures/hazards: No Cognitive needs: No Hearing needs: No Vision needs: Yes Physical Exam Vital Signs: Last Vital Signs Pulse 76 05/05/24 09:46 BMI result Body Mass Index 29.8 Chest Other: Chest breath sounds bilaterally, HS 1 in 2 GI Other: Patient was examined both supine and standing with Valsalva. Abdomen is soft, benign. Right groin negative. Genitalia within normal limits. Very large reducible left inguinal hernia Assessment & Plan Assessment & Plan (1) Left groin hernia: Code(s): K40.90 - Unilateral inguinal hernia, without obstruction or gangrene, not specified as recurrent Category: Surgical Plan Risks, benefits, and alternatives of open left inguinal hernia repair with mesh were reviewed with the patient included but not limited to bleeding, infection, recurrence, numbness, pain, scarring the patient wished to proceed. All questions answered. Arrangements were made for this on a day which is convenient for him. Coding Level of Care Code New Pt Level 5 (28851) Diagnoses Left groin hernia K40.90
[2024-05-05 09:46] VITALS: PULSE 76; BMI 29.8
--- OUTSIDE RECORDS SUMMARY | 2024-05-05 10:09 | XMS_ITS | Data Portability ---
Author Organization [place] - [facility], Allergy Address [address] [address] Care Team Providers Care Radiology Services Manager Name Role Phone YURIDIA MURGUIA Primary Care [...] Gastroeso phageal reflux disease without esophagit is [id number] Active 2016 Gastro-es ophageal reflux disease without esophagit is; Note: Date Diagnosed : 01/04/2017 9:54 AM (K21.9) Not Available [facility] 4 03:05:25 Sensorine ural hearing loss of bilateral ears 870678388 Active 2015 Sensorine ural hearing loss, bilateral ; Note: Date Diagnosed : 04/21/2015 11:21 AM (H90.3) Not Available [facility] 4 03:05:26 Follow-up visit Active 2019 Encounter for follow-up examinati on after completed treatment for malignant neoplasm; Note: Date Diagnosed : 04/13/2019 12:29 PM (Z08) Not Available [facility] 4 03:05:24 Neoplasm of uncertain behavior of tongue 79809634 Active 2014 Neoplasm of uncertain behavior of tongue; Note: Date Diagnosed : 5 10:04 AM (D37.02) Not Available [facility] 4 03:05:25 History of malignant neoplasm of tongue 433934150 Active 2019 Personal history of malignant neoplasm of tongue; Note: Date Diagnosed : 04/13/2019 12:29 PM (Z85.810) Not Available [facility] 4 03:05:26 Bilateral tinnitus 92601724345 02 Active 2015 Tinnitus, bilateral ; Note: Date Diagnosed : 03/08/2016 9:16 AM (H93.13) Not Available [facility] 4 03:05:24 Primary malignant neoplasm of base of tongue 59229089 Active 2014 Malignant neoplasm of dorsal surface of base of tongue; Note: Date Diagnosed : 03/03/2015 1:35 PM (C01) Not Available [facility] 4 03:05:25 History of primary malignant neoplasm of base of tongue [id number] 886488 Active 2023 Primary tumor location: left base of the tongue Tumor staging: T2N2b SCCA Treatment : XRT chemo Date of treatment completio n:05/2015 Oncology team: Dr Arnold/Jostin PERERA MD [address] [place] [address], [phone] , [facility] 4 19:32:40 Problem Notes None recorded. Procedures Surgical History Date Name Laterality Status Provider Name and Address Organization Details Recorded Time 12/20/2023 FOL_DP completed ZACH PERERA MD [address] [place] [address], [phone], [facility] - [facility] 12/19/2023 19:33:58 Imaging Results None recorded. Procedure Notes None recorded. Medical Equipment None Reported. Allergies No known drug allergies Medications Name Sig Start Date Stop Date Status Note LastModified by Organization Details LastModified Time clindamyc in HCl 300 mg capsule 1 capsule by mouth 12/19 completed Medicati on ID: [id number] D uration Value: 5 Prescri bed By Name: Narayan Morales nd Name: clindamy edwin HCl Send Method: E-Prescr ibed Sub s Allowed: subs OK Medic ationGen ericName : clindamy edwin HCl Not Available Not Available Not Available ibuprofen 800 mg tablet 12/19 completed Medicati on ID: [id number] Du ration Value: 10 Brand Name: ibuprofe n Send Method: E-Prescr ibed Sub s Allowed: subs OK Speci al Instruct ion: TAKE 1 TABLET BY MOUTH TWICE A DAY FOR 10 DAYS NEEDED M yamileth nGeneric Name: ibuprofe n Not Available Not Available Not Available Peridex 0.12 % mouthwash 12/19 completed Medicati on ID: [id number] P rescribe d By Name: Narayan Morales nd Name: Peridex Send Method: E-Prescr ibed Sub s Allowed: subs OK Speci al Instruct ion: 10 ml swish and spit TID x 2 week Med icationG enericNa me: Peridex Not Available Not Available Not Available oxycodone 5 mg/5 mL oral solution 5-10 ml by mouth 12/19 completed Medicati on ID: [id number] D uration Value: 7 Prescri bed By Name: Narayan Morales nd Name: oxycodon e Send Method: E-Prescr ibed Sub s Allowed: subs OK Medic ationGen ericName : oxycodon e Not Available Not Available Not Available Percocet 5 mg-325 mg tablet 1-2 tablet by mouth 12/19 completed Medicati on ID: [id number] Pr escribed By Name: Narayan Morales nd Name: Percocet Send Method: E-Prescr ibed Sub s Allowed: subs OK Medic ationGen ericName : Percocet Not Available Not Available Not Available Ciprodex 0.3 %-0.1 % ear drops,anyi pension 01/12 completed Medicati on ID: [id number] Du ration Value: 7 Reason: () Brand [...] Details Last Updated DateTime 12/20/2023 187.96 cm 63141.32 g Ivana Baron [place] - [facility] 12/20/2023 14:20:30 Social History None recorded. Functional Status None recorded. Mental Status None recorded. Family History Nothing Reported. Medical History No medical history recorded. Past Encounters Encounter ID Performer Location Encounter Start Date Encounter Closed Date Diagnosis/Indication Diagnosis SNOMED-CT Code Diagnosis ICD10 Code Diagnosis Note [id number] ZACH PERERA MD [facility] [address] [address] 12/20/2023 13:46:57 12/20/2023 14:39:12 History of primary malignant neoplasm of base of tongue [id number] 8994347 Z85.810 Health Concerns Section Related Observation LastModified by Organization Detai ls LastModified Time None Recorded Concern Status LastModified by Organization Details LastModified Time None Recorded Advance Directives Directive None Recorded Payers Encounter Date Sequence Insurance Name Policy Number Policy Jackson Covered Member ID Jackson Member ID Guarantor Name 12/20/2023 1 [employer] [id number] Andre Lawler [id number] Andre Lawler Notes Date Note Type Note Provider Name and Address Organization Details Recorded Time 12/20/2023 text/html Primary tumor location: left base of the tongueTumor staging: T2N2b SCCATreatment: XRT chemoDate of treatment completion:05/2015 Oncology team: Dr Arnold/Debra no health changes ZACH PERERA MD [address] [place] [address], [phone], [facility] - [facility] 12/20/2023 14:36:24
== END 2024-05-05 10:02 | disposition home or self-care (01) ==
PROVIDERS: PCP Physician Assistant; Referring Provider Physician Assistant; Visit Provider Surgery
DX: K40.90 Unilateral inguinal hernia, without obstruction or gangrene, not specified as recurrent (principal)
CPT/HCPCS: 99204

== ENCOUNTER → 2024-05-05 09:36 | Outpatient (BNVA) | payer OTHER, SELFPAY | PROVIDERS: PCP Physician Assistant; Referring Provider Physician Assistant; Visit Provider Surgery ==

== ENCOUNTER → 2024-05-07 10:27 | Outpatient (BNV) | payer OTHER, SELFPAY | PROVIDERS: PCP Physician Assistant; Visit Provider Radiology Diagnostic Radiology | DX: N28.1 Cyst of kidney, acquired (principal) | CPT/HCPCS: 76775 ==

== ENCOUNTER 2024-05-29 08:03 | Day surgery (SDC) | payer OTHER, SELFPAY ==
--- OUTSIDE RECORDS SUMMARY | 2024-05-22 13:49 | XMS_ITS | Data Portability ---
Author Organization [place] - [facility], Allergy Address [address] [address] Care Team Providers Care Dry Chain Worker Name Role Phone YURIDIA MURGUIA Primary Care Provider [phone] Assessment Encounter Date Assessment Date Assessment LastModified [...] Gastroeso phageal reflux disease without esophagit is [id number] Active 2016 Gastro-es ophageal reflux disease without esophagit is; Note: Date Diagnosed : 01/04/2017 9:54 AM (K21.9) Not Available [facility] 4 03:05:25 Sensorine ural hearing loss of bilateral ears 094644942 Active 2015 Sensorine ural hearing loss, bilateral ; Note: Date Diagnosed : 04/21/2015 11:21 AM (H90.3) Not Available [facility] 4 03:05:26 Follow-up visit Active 2019 Encounter for follow-up examinati on after completed treatment for malignant neoplasm; Note: Date Diagnosed : 04/13/2019 12:29 PM (Z08) Not Available [facility] 4 03:05:24 Neoplasm of uncertain behavior of tongue 37305306 Active 2014 Neoplasm of uncertain behavior of tongue; Note: Date Diagnosed : 5 10:04 AM (D37.02) Not Available [facility] 4 03:05:25 History of malignant neoplasm of tongue 370359341 Active 2019 Personal history of malignant neoplasm of tongue; Note: Date Diagnosed : 04/13/2019 12:29 PM (Z85.810) Not Available [facility] 4 03:05:26 Bilateral tinnitus 45549855327 02 Active 2015 Tinnitus, bilateral ; Note: Date Diagnosed : 03/08/2016 9:16 AM (H93.13) Not Available [facility] 4 03:05:24 Primary malignant neoplasm of base of tongue 56122984 Active 2014 Malignant neoplasm of dorsal surface of base of tongue; Note: Date Diagnosed : 03/03/2015 1:35 PM (C01) Not Available [facility] 4 03:05:25 History of primary malignant neoplasm of base of tongue 10290674418 653462 Active 2023 Primary tumor location: left base of the tongue Tumor staging: T2N2b SCCA Treatment : XRT chemo Date of treatment completio n:05/2015 Oncology team: Dr Arnold/Jostin PERERA MD [address] [place] [address], [phone] , [facility] 4 19:32:40 Problem Notes None recorded. Procedures Surgical History Date Name Laterality Status Provider Name and Address Organization Details Recorded Time 12/20/2023 FOL_DP completed ZACH PERERA MD [address] [place] [address], [phone], [facility] - [facility] 12/19/2023 19:33:58 Imaging Results None recorded. Procedure Notes None recorded. Medical Equipment None Reported. Allergies No known drug allergies Medications Name Sig Start Date Stop Date Status Note LastModified by Organization Details LastModified Time clindamyc in HCl 300 mg capsule 1 capsule by mouth 12/19 completed Medicati on ID: [id number] D uration Value: 5 Prescri bed By Name: Narayan Morales nd Name: clindamy edwin HCl Send Method: E-Prescr ibed Sub s Allowed: subs OK Medic ationGen ericName : clindamy edwin HCl Not Available Not Available Not Available ibuprofen 800 mg tablet 12/19 completed Medicati on ID: [id number] Du ration Value: 10 Brand Name: ibuprofe n Send Method: E-Prescr ibed Sub s Allowed: subs OK Speci al Instruct ion: TAKE 1 TABLET BY MOUTH TWICE A DAY FOR 10 DAYS NEEDED M yamileth nGeneric Name: ibuprofe n Not Available Not Available Not Available Peridex 0.12 % mouthwash 12/19 completed Medicati on ID: [id number] P rescribe d By Name: Narayan Morales nd Name: Peridex Send Method: E-Prescr ibed Sub s Allowed: subs OK Speci al Instruct ion: 10 ml swish and spit TID x 2 week Med icationG enericNa me: Peridex Not Available Not Available Not Available oxycodone 5 mg/5 mL oral solution 5-10 ml by mouth 12/19 completed Medicati on ID: [id number] D uration Value: 7 Prescri bed By Name: Narayan Morales nd Name: oxycodon e Send Method: E-Prescr ibed Sub s Allowed: subs OK Medic ationGen ericName : oxycodon e Not Available Not Available Not Available Percocet 5 mg-325 mg tablet 1-2 tablet by mouth 12/19 completed Medicati on ID: [id number] Pr escribed By Name: Narayan Morales nd Name: Percocet Send Method: E-Prescr ibed Sub s Allowed: subs OK Medic ationGen ericName : Percocet Not Available Not Available Not Available Ciprodex 0.3 %-0.1 % ear drops,anyi pension 01/12 completed Medicati on ID: [id number] Du ration Value: 7 Reason: () Brand [...] Details Last Updated DateTime 12/20/2023 187.96 cm 84671.32 g Ivana Baron [place] - [facility] 12/20/2023 14:20:30 Social History None recorded. Functional Status None recorded. Mental Status None recorded. Family History Nothing Reported. Medical History No medical history recorded. Past Encounters Encounter ID Performer Location Encounter Start Date Encounter Closed Date Diagnosis/Indication Diagnosis SNOMED-CT Code Diagnosis ICD10 Code Diagnosis Note [id number] ZACH PERERA MD [facility] [address] [address] 12/20/2023 13:46:57 12/20/2023 14:39:12 History of primary malignant neoplasm of base of tongue [id number] 8022762 Z85.810 Health Concerns Section Related Observation LastModified by Organization Detai ls LastModified Time None Recorded Concern Status LastModified by Organization Details LastModified Time None Recorded Advance Directives Directive None Recorded Payers Encounter Date Sequence Insurance Name Policy Number Policy Jackson Covered Member ID Jackson Member ID Guarantor Name 12/20/2023 1 [employer] [id number] Andre Lawler [id number] Andre Lawler Notes Date Note Type Note Provider Name and Address Organization Details Recorded Time 12/20/2023 text/html Primary tumor location: left base of the tongueTumor staging: T2N2b SCCATreatment: XRT chemoDate of treatment completion:05/2015 Oncology team: Dr Arnold/Debra no health changes ZACH PERERA MD [address] [place] [address], [phone], [facility] - [facility] 12/20/2023 14:36:24
[2024-05-27 13:30] VITALS: BMI 29.8
--- NOTE | 2024-05-28 09:35 | HO.ANESPROP2 ---
Documented by User: Devora Miles NP 05/28/24 09:41 HPI - Anesthesia Eval Consult details Narrative: 63yo M for Left Hernia Inguinal Reducible with mesh Hx throat ca s/p radiation 2018 - follows ENT [facility] - last office visit 12/2023, note pending [facility] Active Problems Active Problems: All Active Problems Left groin hernia (Acute) Right kidney mass (Acute) Skin lesion (Acute) Umbilical hernia (Acute) Chronic fatigue syndrome (Acute) Colon cancer screening declined (Acute) HLD (hyperlipidemia) (Acute) Elevated blood pressure reading (Acute) Abnormal stress electrocardiogram test (Acute) Tick bite (Acute) Annual physical exam (Acute) Stress at work (Acute) Colon cancer screening (Acute) GERD (gastroesophageal reflux disease) (Acute) Chronic fatigue (Acute) Screening for hypercholesterolemia (Acute) Screening for diabetes mellitus (DM) (Acute) Elevated TSH (Acute) Low testosterone (Acute) Past Medical History Medical History History of throat cancer Family History Family History Father Pancreatic cancer Mother Lung cancer Surgical History Surgical History No pertinent past surgical history Social History Social History Housing: House Are you a primary wound care technician to a significant other at home: No Do you presently have visiting nurse or other home services: No Alcohol intake: current Alcohol intake frequency: holidays/special occasions only Patient Tobacco Use Status: Never used Tobacco e-Cigarette/Vaping Use: Never Used Second Hand Smoke Exposure: No Use of substances other than those prescribed or required for medical reasons: No Have you been hit, kicked, punched, or otherwise hurt by someone within the past year? 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 Current occupational exposures/hazards: No Cognitive needs: No Hearing needs: No Vision needs: Yes Meds Allergies Allergy/AdvReac Type Severity Reaction Status Date / Time No Known Allergies Allergy Verified 05/29/24 09:14 Exam Height,Weight and Vital Signs: Height 6 ft 2 in Weight 105.233 kg Pertinent Lab Results Pertinent Lab Results: Laboratory Tests 04/21/24 08:09 WBC 6.0 Hgb 16.6 Hct 50.6 Plt Count 197 D Sodium 141 Potassium 4.7 Chloride 110 H Carbon Dioxide 25 BUN 17 H Creatinine 1.18 Assessment and Plan Assessment Anesthesia Assessment: Chart Reviewed Documented by User: Fadumo Mcmahon MD 05/29/24 11:00 [facility] Past Medical History Medical History History of throat cancer Family History Family History Father Pancreatic cancer Mother Lung cancer Surgical History Surgical History No pertinent past surgical history History of Problems with Anesthesia: No Social History Social History Housing: House Are you a primary wound care technician to a significant other at home: No Do you presently have visiting nurse or other home services: No Alcohol intake: current Alcohol intake frequency: holidays/special occasions only Patient Tobacco Use Status: Never used Tobacco e-Cigarette/Vaping Use: Never Used Second Hand Smoke Exposure: No Use of substances other than those prescribed or required for medical reasons: No Have you been hit, kicked, punched, or otherwise hurt by someone within the past year? 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 Current occupational exposures/hazards: No Cognitive needs: No Hearing needs: No Vision needs: Yes Meds Allergies Allergy/AdvReac Type Severity Reaction Status Date / Time No Known Allergies Allergy Verified 05/29/24 09:14 Exam Airway Mallampati Class: II TM Dist: >3cm Neck ROM: Full Loose/Missing/Broken Teeth: No Heart: RRR Lungs: CTA Assessment and Plan Assessment Anesthesia Assessment: Anesthesia Plan Discussed Final Anesthetic Review History of Problems with Anesthesia: No NPO: Yes ASA Class: II Final Preanesthetic Review: Meds/Allgs Chart Reviewed, Consent Obtained/Reviewed and Anes Risks/Benef Reviewed Patient Risk: Low Procedure Risk: Low Anesthetic Plan Anesthetic Plan: GA Disposition: Standard PACU
--- NOTE | 2024-05-28 12:54 | P.HPSUR_ITS ---
Pre-Procedural Eval Section A - 24 Hr Update-Section A only Date of Service: 05/29/24 The patient is an INPATIENT: No Changes since office visit: No Cold of Flu in the past 2 weeks, No New Medical Problems, No Changes in Medication and No Patient answered all questions Section B - Complete if H&P > 30 days Chief Complaint: Unilateral inguinal hernia, without obstruction Allergies: Allergies Allergy/AdvReac Type Severity Reaction Status Date / Time No Known Allergies Allergy Verified 05/05/24 09:45 Review of Systems Sugical H&P ROS: Negative: Constitution, Cardiovascular, Respiratory, Neurological, Psychiatric, Hem-Onc, Allergic/Immunologic, Gastrointestinal, Genitourinary, Musculoskeletal, Integumentary, Endocrine and Eye s/Ears/Nose/Throat Exam Surgical H&P Exam: Normal: HEENT, Normal: Heart, Normal: Lungs, Normal: Extremities, Normal: Abdomen, Normal: Skin and Normal: Neurological Plan I have reviewed the history and physical and performed a pertinent physical examination on my patient. No changes have occurred unless specified. Time Spent With Patient Time: Total time managing care of this patient today ____ minutes.
[2024-05-29] VITALS (9 sets, daily range): BP systolic 123–148; BP diastolic 81–90; PULSE 63–78; RESP 12–17; TEMP 36.4–36.5; O2SAT 95–99; BMI 29.4
--- NOTE | ~2024-05-29 | XR_ITS ---
EXAMINATION: XR CHEST CLINICAL INFORMATION: Vomiting under anesthesia COMPARISON: None available. TECHNIQUE: Frontal view of the chest was obtained. FINDINGS: Mildly limited exam due to positioning. The left lateral thoracic wall has been excluded. The cardiac silhouette is prominent but may be magnified by AP technique. Mediastinal and hilar contours appear normal. Lungs demonstrate mild linear atelectasis left lower lung. Lungs otherwise clear. No pneumothorax or effusion. No focal osseous or soft tissue abnormality. Mild degenerative changes right shoulder joint. XR/XR chest 1V IMPRESSION: No active pulmonary disease. Electronically signed by: Viral Murdock MD 05/29/2024 02:07 PM [facility]
[2024-05-29] MEDS: Lactated Ringers 1,000 ML 100 ML IVCONT (09:36)
[2024-05-29] MEDS: ceFAZolin Sodium/Dextrose,Iso 2 GM/50 ML PIGGYBACK IV (11:25)
--- NOTE | 2024-05-29 13:07 | W.PM.OPN ---
Operative Note Operative Note Date of Service: 05/29/24 Narrative: Preoperative diagnosis: [] Symptomatic enlarging left inguinal hernia Postop diagnosis: [] The same Procedure [] open left inguinal herniorrhaphy Surgeon: [] Kam Job Service Specialist: [] Paula Type of Anesthesia: [] General Indication for surgery: [] Intraoperative findings demonstrated a large indirect left inguinal hernia. No direct hernia demonstrated. Please refer to anesthesia note regarding airway issues at completion of the case. Findings: [] Patient brought to the operating room, placed on operative table supine position, after an adequate level of general anesthesia was induced, the left groin was prepped and draped in usual sterile fashion using a small left para inguinal incision, this carried down through skin, subcutaneous tissue, Ashly's fascia. External oblique fibers were opened their direction with care to isolate and preserve the ilioinguinal nerve throughout the procedure. Spermatic cord was identified and retracted from the field. No direct hernia was demonstrated. A very large indirect hernia sac was identified and from the spermatic cord and reduced. An appropriately sized Bard plug was placed in the indirect defect, and sutured inferiorly to the inguinal ligament, and superiorly to the transversalis fascia using interrupted 0 Ethibond suture. At completion of procedure, mesh was in good position, with no tension or gaps, and covered the inguinal floor as well. Wound was irrigated, secured hemostasis, and closed in the following manner; external oblique fascia was closed using running 2-0 Vicryl suture. Ashly's fascia was reapproximated using interrupted 3-0 Vicryl suture. Interrupted inverted deep dermal 3-0 Vicryl sutures followed by running subcuticular 4-0 Vicryl sutures were placed. Steri-Strips and sterile dressings were applied. Wound was infiltrated at the beginning at the end with ilioinguinal block and local infiltration with 0.5% Marcaine/1% lidocaine. Sponge, needle, and instrument counts reported correct. Patient tolerated the procedure well and emerged from anesthesia stable condition. EBL minimal. Ipsilateral testicle was intrascrotal at completion.
== END 2024-05-29 14:47 | disposition home or self-care (01) ==
PROVIDERS: PCP Physician Assistant; Visit Provider Surgery
PROC: (CPT 49505; principal; 2024-05-29 10:50)
DX: K40.90 Unilateral inguinal hernia, without obstruction or gangrene, not specified as recurrent (principal); Z85.819 Personal history of malignant neoplasm of unspecified site of lip, oral cavity, and pharynx; Z92.3 Personal history of irradiation; Z92.21 Personal history of antineoplastic chemotherapy
CPT/HCPCS: 49505; 71045; C1781; J0690; J1100; J1885; J2003; J2250; J2405; J2704; J2795; J3010

== ENCOUNTER → 2024-05-29 08:03 | Outpatient (BNV) | payer OTHER, SELFPAY | PROVIDERS: PCP Physician Assistant; Visit Provider Surgery | DX: K40.90 Unilateral inguinal hernia, without obstruction or gangrene, not specified as recurrent (principal) | CPT/HCPCS: 49505 ==

== ENCOUNTER → 2024-05-29 12:50 | Outpatient (BNV) | payer OTHER, SELFPAY | PROVIDERS: PCP Physician Assistant; Visit Provider Radiology Diagnostic Radiology | DX: R11.10 Vomiting, unspecified (principal); T88.59XA Other complications of anesthesia, initial encounter | CPT/HCPCS: 71045 ==

== ENCOUNTER 2024-06-11 08:50 | Outpatient (AMB) | payer OTHER, SELFPAY ==
--- NOTE | 2024-06-11 08:51 | MHC.OFFVIS ---
Intake Visit Reasons: s/p surgery Intake Note: Patient here s/p open left inguinal herniorrhaphy. Reports incision healing well. Patiemt c/o: no concerns. No longer taking rx pain meds. Surgery: 05-29-2024 Ultrasound Technol Required: No Accompanied by: Self / Same As Patient Allergies No Known Allergies Allergy (Verified 06/11/24 08:54) HPI Comments Details: Patient was asked to follow-up status post left inguinal hernia repair. He is doing well. He is tolerating a diet. He has returned to work which is sedentary. He is increasing his activity level. [facility] Medical History History of throat cancer Surgical History No pertinent past surgical history Family History Father Pancreatic cancer Mother Lung cancer Social History Housing: House Are you a primary daycare teacher to a significant other at home: No Do you presently have visiting nurse or other home services: No Alcohol intake: current Alcohol intake frequency: holidays/special occasions only Patient Tobacco Use Status: Never used Tobacco e-Cigarette/Vaping Use: Never Used Second Hand Smoke Exposure: No service: Yes Current occupational status: employed 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 Current occupational exposures/hazards: No Cognitive needs: No Hearing needs: No Vision needs: Yes Physical Exam GI Other: Abdomen is soft. Incision clean dry and intact healing well Assessment & Plan Assessment & Plan (1) Status post inguinal hernia repair using synthetic patch: Code(s): Z98.890 - Other specified postprocedural states; Z87.19 - Personal history of other diseases of the digestive system Category: Medical Plan Patient was been given local instructions including avoiding strenuous activities and will otherwise follow-up p.r.n.. All questions answered. Coding Level of Care Code Global (07222) Diagnoses Status post inguinal hernia repair using synthetic patch Z98.890; Z87.19
--- OUTSIDE RECORDS SUMMARY | 2024-06-11 09:46 | XMS_ITS | Data Portability ---
Author Organization [place] - [facility], Allergy Address [address] [address] Care Team Providers Care Sustainability Officer Name Role Phone YURIDIA MURGUIA Primary Care [...] Gastroeso phageal reflux disease without esophagit is 841679239 Active 2016 Gastro-es ophageal reflux disease without esophagit is; Note: Date Diagnosed : 01/04/2017 9:54 AM (K21.9) Not Available [facility] 4 03:05:25 Sensorine ural hearing loss of bilateral ears 170570053 Active 2015 Sensorine ural hearing loss, bilateral ; Note: Date Diagnosed : 04/21/2015 11:21 AM (H90.3) Not Available [facility] 4 03:05:26 Follow-up visit Active 2019 Encounter for follow-up examinati on after completed treatment for malignant neoplasm; Note: Date Diagnosed : 04/13/2019 12:29 PM (Z08) Not Available [facility] 4 03:05:24 Neoplasm of uncertain behavior of tongue 03839180 Active 2014 Neoplasm of uncertain behavior of tongue; Note: Date Diagnosed : 5 10:04 AM (D37.02) Not Available [facility] 4 03:05:25 History of malignant neoplasm of tongue 195840225 Active 2019 Personal history of malignant neoplasm of tongue; Note: Date Diagnosed : 04/13/2019 12:29 PM (Z85.810) Not Available [facility] 4 03:05:26 Bilateral tinnitus 45259846753 02 Active 2015 Tinnitus, bilateral ; Note: Date Diagnosed : 03/08/2016 9:16 AM (H93.13) Not Available [facility] 4 03:05:24 Primary malignant neoplasm of base of tongue 10642728 Active 2014 Malignant neoplasm of dorsal surface of base of tongue; Note: Date Diagnosed : 03/03/2015 1:35 PM (C01) Not Available [facility] 4 03:05:25 History of primary malignant neoplasm of base of tongue 53276298484 157496 Active 2023 Primary tumor location: left base of the tongue Tumor staging: T2N2b SCCA Treatment : XRT chemo Date of treatment completio n:05/2015 Oncology team: Dr Arnold/Jostin PERERA MD [address] [place] [address], [phone] , [facility] 4 19:32:40 Problem Notes None recorded. Procedures Surgical History Date Name Laterality Status Provider Name and Address Organization Details Recorded Time 12/20/2023 FOL_DP completed ZACH PERERA MD [address] [place] [address], [phone], [facility] - [facility] 12/19/2023 19:33:58 Imaging Results None recorded. Procedure Notes None recorded. Medical Equipment None Reported. Allergies No known drug allergies Medications Name Sig Start Date Stop Date Status Note LastModified by Organization Details LastModified Time clindamyc in HCl 300 mg capsule 1 capsule by mouth 12/19 completed Medicati on ID: [id number] D uration Value: 5 Prescri bed By Name: Narayan Morales nd Name: clindamy edwin HCl Send Method: E-Prescr ibed Sub s Allowed: subs OK Medic ationGen ericName : clindamy edwin HCl Not Available Not Available Not Available ibuprofen 800 mg tablet 12/19 completed Medicati on ID: [id number] Du ration Value: 10 Brand Name: ibuprofe n Send Method: E-Prescr ibed Sub s Allowed: subs OK Speci al Instruct ion: TAKE 1 TABLET BY MOUTH TWICE A DAY FOR 10 DAYS NEEDED M yamileth nGeneric Name: ibuprofe n Not Available Not Available Not Available Peridex 0.12 % mouthwash 12/19 completed Medicati on ID: [id number] P rescribe d By Name: Narayan Morales nd Name: Peridex Send Method: E-Prescr ibed Sub s Allowed: subs OK Speci al Instruct ion: 10 ml swish and spit TID x 2 week Med icationG enericNa me: Peridex Not Available Not Available Not Available oxycodone 5 mg/5 mL oral solution 5-10 ml by mouth 12/19 completed Medicati on ID: [id number] D uration Value: 7 Prescri bed By Name: Narayan Morales nd Name: oxycodon e Send Method: E-Prescr ibed Sub s Allowed: subs OK Medic ationGen ericName : oxycodon e Not Available Not Available Not Available Percocet 5 mg-325 mg tablet 1-2 tablet by mouth 12/19 completed Medicati on ID: [id number] Pr escribed By Name: Narayan Morales nd Name: Percocet Send Method: E-Prescr ibed Sub s Allowed: subs OK Medic ationGen ericName : Percocet Not Available Not Available Not Available Ciprodex 0.3 %-0.1 % ear drops,anyi pension 01/12 completed Medicati on ID: [id number] Du ration Value: 7 Reason: () Brand [...] Details Last Updated DateTime 12/20/2023 187.96 cm 92644.32 g Ivana Baron [place] [facility] 12/20/2023 14:20:30 Social History None recorded. Functional Status None recorded. Mental Status None recorded. Family History Nothing Reported. Medical History No medical history recorded. Past Encounters Encounter ID Performer Location Encounter Start Date Encounter Closed Date Diagnosis/Indication Diagnosis SNOMED-CT Code Diagnosis ICD10 Code Diagnosis Note [id number] ZACH PERERA MD [facility] [address] [address] 12/20/2023 13:46:57 12/20/2023 14:39:12 History of primary malignant neoplasm of base of tongue [id number] 1323798 Z85.810 Health Concerns Section Related Observation LastModified by Organization Detai ls LastModified Time None Recorded Concern Status LastModified by Organization Details LastModified Time None Recorded Advance Directives Directive None Recorded Payers Encounter Date Sequence Insurance Name Policy Number Policy Jackson Covered Member ID Jackson Member ID Guarantor Name 12/20/2023 1 [employer] [id number] Andre Lawler [id number] Andre Lawler Notes Date Note Type Note Provider Name and Address Organization Details Recorded Time 12/20/2023 text/html Primary tumor location: left base of the tongueTumor staging: T2N2b SCCATreatment: XRT chemoDate of treatment completion:05/2015 Oncology team: Dr Arnold/Debra no health changes ZACH PERERA MD [address] [place] [address], [phone], [facility] - [facility] 12/20/2023 14:36:24
== END 2024-06-11 09:00 | disposition home or self-care (01) ==
LOC: HO.HGS 08:51
PROVIDERS: PCP Physician Assistant; Visit Provider Surgery
DX: Z98.890 Other specified postprocedural states (principal); Z87.19 Personal history of other diseases of the digestive system
CPT/HCPCS: 99024

== ENCOUNTER → 2024-06-11 08:50 | Outpatient (BNVA) | payer OTHER, SELFPAY | PROVIDERS: PCP Physician Assistant; Visit Provider Surgery | DX: N28.1 Cyst of kidney, acquired (principal); N28.89 Other specified disorders of kidney and ureter; Z87.19 Personal history of other diseases of the digestive system; Z98.890 Other specified postprocedural states | CPT/HCPCS: 51798 ==

== ENCOUNTER 2024-06-11 09:54 | Outpatient (AMB) | payer OTHER, SELFPAY ==
--- NOTE | 2024-06-11 11:23 | MHC.OFFVIS ---
Intake Visit Reasons: right Kidney/family and hx cancer/CT Intake Note: Patient is present for RIGHT KIDNEY.FAMILY AND HX CANCER/CT Urology Medication:NONE Antibiotic Allergy:NONE Blood Thinner:NONE PVR: 303ml Orthopedic Shoe Fitter Required: No Allergies No Known Allergies Allergy (Verified 06/19/24 07:42) HPI Comments Details: Andre is a 63 year old male here for a new patient evaluation for renal lesion. He denies gross hematuria, denies irritative voiding symptoms. Ultrasound findings discussed: 1.5 cm Complex septated exophytic cystic lesion, right kidney. Recommend dedicated IV contrast enhanced CT versus MRI for further imaging characterization. [facility] Medical History History of throat cancer Surgical History No pertinent past surgical history Family History Father Pancreatic cancer Mother Lung cancer Social History Household Members: Significant Other Housing: House Are you a primary wound care nurse to a significant other at home: No Do you presently have visiting nurse or other home services: No Alcohol intake: current Alcohol intake frequency: holidays/special occasions only Patient Tobacco Use Status: Never used Tobacco Tobacco use type: Cigarette e-Cigarette/Vaping Use: Never Used Second Hand Smoke Exposure: No service: Yes Current occupational status: employed 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 Current occupational exposures/hazards: No Cognitive needs: No Hearing needs: No Vision needs: Yes Review of Systems Const All systems reviewed & are unremarkable except as noted in HPI and below Reports no additional complaints Eyes Reports no additional complaints ENT Reports no additional complaints Card Reports no additional complaints Resp Reports no additional complaints GI Reports no additional complaints Reports as per HPI Musc Reports no additional complaints Skin/Breast Reports system reviewed and no additional complaints, except as documented Neuro Reports no additional complaints Psych Reports no additional complaints Endo Reports no additional complaints Tesfaye/Lymph Reports no additional complaints Aller/Immun Reports no additional complaints Physical Exam Const General: healthy appearing, no acute distress and well developed Orientation/consciousness: patient oriented x3 HEENT Head: Yes normocephalic and Yes atraumatic Eyes Conjunctivae: conjunctivae normal Neck Neck: Yes normal visual inspection Chest Chest palpation & inspection: normal inspection of the chest Resp Effort & Inspection: normal respiratory effort Cardio Rate: regular rate GI Inspection: Yes normal to inspection Neuro General: patient oriented x3 Extrem General: No pedal edema Psych Appearance: grossly normal Affect: normal affect Office Procedures Post Void Residual Post Residual Void Post Void Residual (PVR): [id number] Void Residual by ultrasound Results Reviewed Results Reviewed: Date of Service: 05/07/24 US RETROPERITONEAL LIMITED, RIGHT (RENAL ONLY) CLINICAL INFORMATION: Disorder of the kidney and ureter.. COMPARISON: Correlated to CT dated April 28, 2024. TECHNIQUE: Real-time ultrasound of the right kidney using grayscale and color Doppler technique. FINDINGS: RIGHT KIDNEY: 12 x 7 x 7 cm. Normal echotexture. Normal renal cortical thickness. No hydronephrosis. There is a 1.5 cm, exophytic, lobulated and septated anechoic lesion centered in the posterior upper pole/midportion junction. No flow on color Doppler interrogation. IMPRESSION: Complex septated exophytic cystic lesion, right kidney. Recommend dedicated IV contrast enhanced CT versus MRI for further imaging characterization. No hydronephrosis.. Date: 04/28/24--CLINICAL HISTORY: K42.9 - Umbilical hernia without obstruction or gangrene CT abdomen and pelvis with contrast Comparison: None Findings: No consolidation or effusion. Benign-appearing cysts within the left hepatic lobe measuring up to 2.3 cm. The gallbladder and biliary tree, spleen, pancreas and adrenal glands are unremarkable. Bilateral benign-appearing renal cysts, the largest measuring 7.3 cm arising from the left lower pole. Punctate nonobstructing stone in the mid right kidney. Indeterminate lesion arises exophytically from the posterior aspect of the right kidney measuring 1.9 cm on image 27 of series 3. No bowel obstruction, pneumoperitoneum, or pneumatosis. There is a fat-containing inguinal hernia that also contains a small portion of sigmoid colon. No inflammatory change. Bladder and prostate are unremarkable. Normal appendix. No adenopathy or fluid collections. Patent vasculature. No acute fracture. IMPRESSION: 1. Left inguinal hernia containing fat and small amount of sigmoid colon. No inflammation or obstruction. 2. Indeterminate exophytic mass arising from the posterior aspect of the right kidney. Recommend further characterization with MRI abdomen with and without contrast. At a minimum follow-up ultrasound is recommended. 3. Benign-appearing hepatic and renal cysts. Assessment & Plan Assessment & Plan (1) Acquired complex renal cyst: Code(s): N28.1 - Cyst of kidney, acquired Category: Medical (2) Renal mass of unknown nature: Code(s): N28.89 - Other specified disorders of kidney and ureter Category: Medical Plan CT abd renal mass protocol Patient Instructions: The patient had an opportunity to ask questions regarding treatment plan. The patient expressed understanding and agreement with the above treatment plan. The patient is aware they should contact our office by phone for worsening of their current condition or the appearance of new symptoms. Compliance is encouraged with any medications and followup testing that is ordered. It is a privilege to be allowed the opportunity to participate in the urologic care of your patient. If you have any questions or concerns regarding treatment for the above conditions please do not hesitate to contact me. The office telephone contact is [phone]. This note is constructed in part using voice recognition software. While every effort has been made to ensure accuracy control and recovery special tactics errors may have been included. Yours sincerely, Kelley Ha MD Coding Level of Care Code New Pt Level 4 (10922) Diagnoses Acquired complex renal cyst N28.1 Renal mass of unknown nature N28.89 CPT Codes Post Residual Void - PVR CPT Code: 36453-Spxs Void Residual by ultrasound ([id number])
== END 2024-06-11 11:42 | disposition home or self-care (01) ==
LOC: HO.HUSH 09:55
PROVIDERS: PCP Physician Assistant; Visit Provider Urology
DX: N28.1 Cyst of kidney, acquired (principal); N28.89 Other specified disorders of kidney and ureter
CPT/HCPCS: 99204

== ENCOUNTER 2024-06-12 06:56 | Inpatient (IN) | payer OTHER, SELFPAY ==
[2024-06-12] VITALS (8 sets, daily range): BP systolic 118–139; BP diastolic 77–91; PULSE 67–89; RESP 14–18; TEMP 36.4–37; O2SAT 94–97; BMI 28.6
--- NOTE | ~2024-06-12 | US_ITS ---
EXAMINATION: US TRIPLEX LOWER EXTREMITY, BILATERAL CLINICAL INFORMATION: Bilateral PE. Rule out DVT. COMPARISON: None available. TECHNIQUE: Color-flow triplex imaging with spectral analysis and compression Doppler were performed on the bilateral lower extremities. FINDINGS: Respiratory variation, normal compression and augmented flow are noted throughout the bilateral lower extremities. The visualized common femoral vein, superficial femoral vein, profunda femoral vein, popliteal vein and midcalf peroneal and posterior tibial venous segments show no evidence of deep venous thrombosis bilaterally. There is no Chopra's cyst. US/US venous duplex LE BI IMPRESSION: No evidence of deep venous thrombosis involving the bilateral lower extremities. Electronically signed by: Viral Murdock MD 06/12/2024 04:54 PM EDT
--- NOTE | ~2024-06-12 | CT_ITS ---
EXAMINATION: CT ANGIOGRAM CHEST CLINICAL INFORMATION: Lordotic back pain, recent surgery, elevated d-dimer. COMPARISON: None available. Correlation made with chest radiograph performed same day. TECHNIQUE: Multiple axial images were obtained through the chest after the administration of 50 mL of Omnipaque 350 intravenous contrast. Extensive vascular post-processing including two-dimensional and three-dimensional reformatted images were created and reviewed on an independent workstation. This CT examination was performed using dose optimization techniques as appropriate, variously including the following: *Automated exposure control *Adjustment of mA and/or kV according to patient size (this includes techniques or standardized protocols for targeted exams where dose is matched to indication/reason for exam; i.e. extremities or head) *Use of iterative reconstruction technique FINDINGS: VASCULAR: There are bilateral pulmonary emboli present, moderate clot burden, most significant in the left lower lung. Normal caliber main pulmonary artery. No right heart strain are reflux of contrast into the IVC. Aorta is normal in caliber and course without evidence of acute aortic syndrome or significant plaque. Heart size is normal. No pericardial effusion. LUNGS: Patchy segmental consolidation with mild volume loss left lower lobe, and subsegmental atelectasis in the inferior lingula. Trace left effusion. No right effusion. Minimal subpleural opacity right lower lobe, and groundglass changes in the more ventral right lower lobe. Findings could be sequela of PE, or represent pneumonia. Minimal groundglass changes in the superior right middle lobe. Small airways are normal. No suspicious pulmonary nodule identified. There are a few scattered micronodules, entirely nonspecific. MEDIASTINUM: There is no adenopathy or mass. The thyroid is normal. Mildly patulous appearing esophagus. Normal GE junction. Central airways normal. AXILLA: No lymphadenopathy. UPPER ABDOMEN: Refer to the dedicated CT performed concurrently. OSSEOUS STRUCTURES: Unremarkable. CT/CT angio chest PE protocol IMPRESSION: 1. POSITIVE examination for bilateral pulmonary emboli. There is moderate clot burden most significant in the left lower lung. Findings do not meet criteria for submassive PE (no right heart strain, no reflux into the IVC). 2. No evidence of acute aortic syndrome or aneurysm. 3. Lungs demonstrate patchy consolidative opacities and groundglass opacities left greater than right lower lobes, and posterior right middle lobe and lingula. Findings are likely sequela of PE although superimposed pneumonia is also a consideration. 4. There is a trace left pleural effusion. There is no pneumothorax. 5. Refer to the dedicated abdomen and pelvis CT for abdominal findings. Electronically signed by: Viral Murdock MD 06/12/2024 10:15 AM EDT
--- NOTE | ~2024-06-12 | CT_ITS ---
EXAMINATION: CT ABDOMEN AND PELVIS WITH CONTRAST CLINICAL INFORMATION: Left-sided upper back pain. COMPARISON: None available. TECHNIQUE: Multidetector volumetric images were obtained from the superior aspect of the liver through the pubic symphysis following administration 85 mL of Omnipaque 350 intravenous contrast. Sagittal and coronal reformatted images were obtained on the technologist's workstation. Oral contrast: No This CT examination was performed using dose optimization techniques as appropriate, variously including the following: *Automated exposure control *Adjustment of mA and/or kV according to patient size (this includes techniques or standardized protocols for targeted exams where dose is matched to indication/reason for exam; i.e. extremities or head) *Use of iterative reconstruction technique DLP: 2087 mGy/cm. FINDINGS: LUNG BASES: There is dependent bibasilar atelectasis. The heart size is normal. No pericardial effusion seen. No hiatal hernia. LIVER, GALLBLADDER, AND BILIARY TREE: The liver is normal in size, shape, and attenuation. There are at least 2 left hepatic lobe low-density lesions measuring cyst. There are they measure 2.0 and 2.5 cm respectively on axial image / and 18/. A smaller cyst seen right hepatic lobe. No intrahepatic ductal dilatation. The gallbladder is unremarkable with no evidence of radiopaque gallstones, gallbladder wall thickening, or obvious pericholecystic inflammatory changes. PANCREAS: Unremarkable. SPLEEN: Unremarkable. ADRENAL GLANDS: Unremarkable. KIDNEYS AND URETERS: The kidneys are normal in size, shape, and attenuation. No hydronephrosis, hydroureter, or calculi seen. No perinephric stranding. There are bilateral low-density renal cysts. Largest in the lower pole left kidney measures 7.5 cm. There is mild bilateral perinephric stranding right greater than left. BLADDER: Unremarkable. GASTROINTESTINAL TRACT: Large amount of stool in the right colon. The small bowel loops are unremarkable. Appendix is not visualized the stomach is nondistended. ABDOMINAL WALL: It appears patient has undergone was vasectomy changes. There is more inflammatory processes are post surgical changes in the left proximal inguinal region compared to right side. LYMPH NODES: Normal. VASCULAR: Unremarkable. PELVIC VISCERA: The prostate is normal size. No free fluid seen. Prominent left OSSEOUS STRUCTURES: No aggressive lytic or sclerotic process seen. Mild ventral spondylosis lower dorsal spine. CT/CT abdomen pelvis w IV con IMPRESSION: No acute intra-abdominal process seen. Mild constipation. Bilateral renal cysts. Large exophytic cyst lower pole measuring 7.5 cm No radiopaque renal calculi seen. Bilateral vasectomy changes in the inguinal canal. Postsurgical changes slightly more prominent in the left proximal inguinal canal. Bibasilar dependent atelectatic changes. Fleischner guidelines were followed. Electronically signed by: Reza Elilngton MD 06/12/2024 12:25 PM EDT
--- NOTE | ~2024-06-12 | XR_ITS ---
EXAMINATION: XR CHEST CLINICAL INFORMATION: upper back pain with respirations, hernia repair COMPARISON: 05/29/2024. TECHNIQUE: AP portable view of the chest was obtained. FINDINGS: The cardiac, hilar, and mediastinal contours are normal. The lungs are clear bilaterally. No pneumothorax or effusion. No focal osseous or soft tissue abnormality. Mild degenerative shoulder joint and spinal changes. XR/XR chest 1V IMPRESSION: No active pulmonary disease. No acute finding. Electronically signed by: Viral Murdock MD 06/12/2024 08:24 AM EDT
--- NOTE | 2024-06-12 07:15 | PC.NURSE ---
Pt comes to ED today form home with complaints of mid back pain. Pt reports pain is 10/10 and sharp in nature with no relieving factors. States Pain began 2 days ago and has been getting increasingly worse over time. Report taking a 5mg Oxycodone at 0530 with minimal relief in pain. Denies any injury however report hernia surgery last week. Pt also reports a history of kidney stones. A&Ox3; VSS; Afebrile. Skin is warm and dry Breaths and speech are unlabored. Pt presets with inability to find comfortably position.
--- NOTE | 2024-06-12 07:24 | ECG_ITS ---
Test Reason : BACK PAIN Blood Pressure : */* mmHG Vent. Rate : 80 BPM Atrial Rate : 80 BPM P-R Int : 162 ms QRS Dur : 80 ms QT Int : 358 ms P-R-T Axes : 49 48 19 degrees QTcB Int : 412 ms Normal sinus rhythm Nonspecific T wave abnormality Abnormal ECG No previous ECGs available Referred By: Damaso Hall Electronically Signed By: LEVI CEDEÑO
--- NOTE | 2024-06-12 07:27 | ED.GENADULT ---
HPI - General Adult General Chief complaint: General Medical Stated complaint: back pain Time Seen by Provider: 06/12/24 07:10 Source: patient Mode of arrival: ambulatory Limitations: no limitations History of Present Illness HPI narrative: Her this is a 63-year-old man with a past medical history of throat cancer status post chemotherapy/radiation in 2018, hypothyroidism, nephrolithiasis, status post open left inguinal herniorrhaphy May 29, 2024 who presents for evaluation of left flank pain. Patient states this started 2 days prior to presentation. Patient reports pain has gradually worsened over time. The patient states that he did have hernia repair a couple of weeks ago with Dr. Humphrey. He states that he saw his surgeon in the office yesterday and did not discuss with the pain that he was having as it was not that bad. Patient states that he was prescribed oxycodone after his hernia repair, but states that he is able to wean off of this though states that he did take 1 this morning which she states has helped decrease some of his pain. He states no urinary symptoms. He states no fevers or chills. He states no chest pain or dyspnea. He states that he does feel the pain when breathing. He states no trauma. He states that he has nausea without vomiting. Related Data Previous Rx's ?Medication ?Instructions ?Recorded barium sulfate 2 % (w/v) oral 900 ml PO ONCE PRN Preprocedure 1 04/27/24 suspension (Readi-Cat 2) day #900 mL Allergies Allergy/AdvReac Type Severity Reaction Status Date / Time No Known Allergies Allergy Verified 06/12/24 07:02 Review of Systems Review of Systems: ROS as per HPI [facility] Past Medical History Medical History History of throat cancer Surgical History No pertinent past surgical history Family History Family History Father Pancreatic cancer Mother Lung cancer Social History Social History Housing: House Are you a primary home care assistant to a significant other at home: No Do you presently have visiting nurse or other home services: No Alcohol intake: current Alcohol intake frequency: holidays/special occasions only Patient Tobacco Use Status: Never used Tobacco Smoked in Last 30 Days: No e-Cigarette/Vaping Use: Never Used Second Hand Smoke Exposure: No Use of substances other than those prescribed or required for medical reasons: No Advance Directives: No Advance Directives Information Provided: No Do you have a plan to hurt others: No Plan service: Yes Current occupational status: employed 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 Current occupational exposures/hazards: No Cognitive needs: No Hearing needs: No Vision needs: Yes Physical Exam ED Vital Signs: Vital Signs - 24 hr 06/12/24 07:00 06/12/24 07:11 06/12/24 07:53 Temperature 98.0 F 97.6 F Pulse Rate 89 86 Respiratory Rate 18 16 18 Blood Pressure 118/91 H 132/79 Pulse Oximetry 96 95 Oxygen Delivery Method Room Air Room Air 06/12/24 12:09 Temperature 97.7 F Pulse Rate 70 Respiratory Rate 16 Blood Pressure 122/80 Pulse Oximetry 96 Oxygen Delivery Method Room Air BMI result Body Mass Index 28.6 Gen: NAD, AOx3 HEENT: NCAT, EOMI, normal conjunctiva CV: RRR Pulm: CTAB, no increased work of breathing GI: Soft, NTND, no rebound, guarding or rigidity, no CVAT Neuro: Grossly non focal Medications Administered Discontinued Medications Generic Name Dose Route Start Last Admin Trade Name Noelq PRN Reason Stop Dose Admin Sodium Chloride 1,000 mls @ 999 mls/hr 06/12/24 07:30 06/12/24 10:44 Ns IV 06/12/24 08:30 Infused .Q1H1M MAX Infusion Iohexol 100 ml 06/12/24 09:40 06/12/24 09:40 Iohexol 350 Mg/Ml 100 Ml Infus..Btl IV 06/12/24 09:41 65 ml ONCE ONE Administration Ketorolac Tromethamine 15 mg 06/12/24 07:24 06/12/24 07:54 Ketorolac Tromethamine 15 Mg/Ml Vial IVPUSH 06/12/24 07:25 15 mg ONCE ONE Administration Morphine Sulfate 4 mg 06/12/24 07:26 06/12/24 07:53 Morphine Sulfate 4 Mg/Ml Cartridge IVPUSH 06/12/24 07:27 4 mg ONCE ONE Administration Protocol Morphine Sulfate 4 mg 06/12/24 10:28 06/12/24 10:43 Morphine Sulfate 4 Mg/Ml Cartridge IVPUSH 06/12/24 10:29 4 mg ONCE ONE Administration Protocol Ondansetron HCl 4 mg 06/12/24 07:24 06/12/24 07:53 Ondansetron Hcl 4 Mg/2 Ml Vial IVPUSH 06/12/24 07:25 4 mg ONCE ONE Administration Medical Decision Making Medical Decision Making [facility] Narrative: Differential diagnosis includes, but is not limited to nephrolithiasis, bowel obstruction, pulmonary embolism, pulmonary infarction, pleuritis. Considered pneumonia, but given lack of fever, sputum production I have low clinical suspicion for this. Patient is afebrile and hemodynamically stable on room air. Exam is benign and reassuring. I reviewed the patient's labs, EKG and diagnostic imaging studies as below. Patient was treated supportively here in the emergency room with multiple doses of IV morphine, Tylenol, Toradol, oxycodone, Zofran and IV fluids. His CT imaging as below with evidence of pulmonary embolism for which patient is started on Eliquis. I discussed the patient's case with hospitalist, Dr. Momin, who accepts the patient for further workup and management. Admission/Observation Consideration of admission/observation: Escalation of care including admission/observation considered Consult Healthcare Provider Management of the patient was discussed with: Hospitalist and Sample Worker I discussed with the consultants hazardous waste material technician and requested initiation of incentive spirometer Lab Data [facility] Lab Attestation statement: I reviewed the patient's lab results. Labs are notable for leukocytosis with white blood cell count of 13.8, D-dimer elevated at 685 (will obtain CT chest PE given and pleuritic back pain and recent surgery within the last 4 weeks), metabolic panel, hepatic function panel and lipase reassuring. 06/12/24 07:46 06/12/24 07:46 Labs: Lab Results 06/12/24 06/12/24 06/12/24 Range/Units 07:46 07:52 11:04 WBC 13.8 H (4.8-10.8) X10*3/uL RBC 5.25 (4.60-5.80) X10*6/uL Hgb 15.6 (14.0-18.0) g/dl Hct 46.1 (42.0-52.0) % MCV 87.8 (80.0-98.0) fL MCH 29.7 (27.0-33.0) pg MCHC 33.8 (31.0-36.0) g/dl RDW 12.9 (11.0-16.0) % Plt Count 285 D (160-400) X10*3/uL MPV 9.4 (9.4-12.4) fL Immature Gran % (Auto) 0.5 H (0.0-0.4) % Neut % (Auto) 85.5 H (45-73) % Lymph % (Auto) 6.0 L (20-40) % [place] % (Auto) 7.2 (2-11) % Eos % (Auto) 0.4 (0-4) % Baso % (Auto) 0.4 (0-2) % Lymph # (Auto) 0.8 L (1.2-4.9) X10*3/uL [place] # (Auto) 1.0 (0.1-1.2) X10*3/uL Eos # (Auto) 0.1 (0.0-0.4) X10*3/uL Baso # (Auto) 0.1 (0.0-0.2) X10*3/uL Abs Immat Gran (auto) 0.07 H (0.00-0.03) X10*3/uL Absolute Neuts (auto) 11.8 H (2.0-8.3) x10*3/uL Absolute Nucleated RBC 0.000 (0.0-0.012) X10*3/uL Nucleated RBC % (auto) 0.0 (0.0-0.2) /100WBC PT 12.6 H (10.9-12.4) SEC INR 1.1 (0.9-1.1) APTT 30.5 (26.0-36.8) SEC D-Dimer High Sensitivty 685 NG/ML Sodium 137 (135-145) mmol/L Potassium 4.6 (3.3-5.1) mmol/L Chloride 106 (96-108) mmol/L Carbon Dioxide 23 (22-29) mmol/L Anion Gap 13 (12-20) BUN 14 (9-16) mg/dL Creatinine 1.01 (0.5-1.4) mg/dL Estim Creat Clear Calc 96.2 Estimated GFR > 60 Random Glucose 127 H (60-115) mg/dL Calcium 9.4 (8.4-10.2) mg/dL Total Bilirubin 0.9 (0.0-1.0) mg/dL Direct Bilirubin 0.3 (0.0-0.5) mg/dL AST 21 (5-37) U/L ALT 29 (0-40) U/L Alkaline Phosphatase 77 (39-117) U/L Troponin I High Sens Cancelled < 2.7 B-Natriuretic Peptide < 10 (<100) pg/mL Total Protein 7.9 (6.5-8.0) g/dL Albumin 3.9 (3.5-5.0) g/dL Lipase 11 (8-78) U/L Blood Type O Negative Antibody Screen NEGATIVE Independent Interpretation I performed an independent interpretation of an: EKG and Plain X-Ray Interpretation: EKG shows normal sinus rhythm at 80 beats per minute, OR 162, QRS 80, QTC 412, no STEMI. I independently reviewed and interpreted the patient's chest x-ray, which demonstrates no pleural effusion, pneumothorax or focal consolidation Radiology Impression Discussion of test interpretation with radiology: I have reviewed the radiologist's reading. Radiologist Impression: XR/XR chest 1V IMPRESSION: No active pulmonary disease. No acute finding. Electronically signed by: Viral Murdock MD 06/12/2024 08:24 AM EDT RP Dictated By: Viral Murdock MD Signed By: <Electronically signed by Viral Murdock MD in OV> 06/12/24823 CT/CT angio chest PE protocol IMPRESSION: 1. POSITIVE examination for bilateral pulmonary emboli. There is moderate clot burden most significant in the left lower lung. Findings do not meet criteria for submassive PE (no right heart strain, no reflux into the IVC). 2. No evidence of acute aortic syndrome or aneurysm. 3. Lungs demonstrate patchy consolidative opacities and groundglass opacities left greater than right lower lobes, and posterior right middle lobe and lingula. Findings are likely sequela of PE although superimposed pneumonia is also a consideration. 4. There is a trace left pleural effusion. There is no pneumothorax. 5. Refer to the dedicated abdomen and pelvis CT for abdominal findings. Electronically signed by: Viral Murdock MD 06/12/2024 10:15 AM EDT RP Dictated By: Viral Murdock MD Signed By: <Electronically signed by Viral Murdock MD in OV> 06/12/[address]/CT abdomen pelvis w IV con IMPRESSION: No acute intra-abdominal process seen. Mild constipation. Bilateral renal cysts. Large exophytic cyst lower pole measuring 7.5 cm No radiopaque renal calculi seen. Bilateral vasectomy changes in the inguinal canal. Postsurgical changes slightly more prominent in the left proximal inguinal canal. Bibasilar dependent atelectatic changes. Fleischner guidelines were followed. Electronically signed by: Reza Ellington MD 06/12/2024 12:25 PM EDT RP Dictated By: Reza Ellington MD Signed By: <Electronically signed by Reza Ellington MD in OV> 06/12/24 1225 Discharge Plan Discharge Clinical Impression: Pulmonary embolism, Pleural effusion Patient Disposition: Admitted As Inpatient Prescriptions: No Action Readi-Cat 2 2 % (w/v) suspension 900 ml PO ONCE PRN (Reason: Preprocedure) 1 Days Qty: 900 0RF Print Language: Maltese
[2024-06-12 07:50] LABS: MANUAL DIFF FLAG NO
[2024-06-12 07:52] LABS: Basophils Absolute Auto 0.1 X10*3/uL (0.0-0.2); Basophils Percent Auto 0.4 % (0-2); Eosinophils Absolute Auto 0.1 X10*3/uL (0.0-0.4); Eosinophils Percent Auto 0.4 % (0-4); Hematocrit 46.1 % (42.0-52.0); Hemoglobin 15.6 g/dl (14.0-18.0); Imm Gran Abs Auto 0.07 X10*3/uL (0.00-0.03); Imm Gran Pct Auto 0.5 % (0.0-0.4); Lymphocytes Absolute Auto 0.8 X10*3/uL (1.2-4.9); Mean Corpuscular HGB Conc 33.8 g/dl (31.0-36.0); Mean Corpuscular Hemoglobin 29.7 pg (27.0-33.0); Mean Corpuscular Volume 87.8 fL (80.0-98.0); Mean Platelet Volume 9.4 fL (9.4-12.4); Monocytes Percent Auto 7.2 % (2-11); Neutrophils Absolute Auto 11.8 x10*3/uL (2.0-8.3); Neutrophils Percent Auto 85.5 % (45-73); Platelet Count 285 X10*3/uL (160-400); Red Blood Count 5.25 X10*6/uL (4.60-5.80); Red Cell Distribution Width 12.9 % (11.0-16.0); White Blood Count 13.8 X10*3/uL (4.8-10.8)
[2024-06-12] MEDS: ondansetron HCL 4 MG/2 ML VIAL IVPUSH ×2 (07:53→14:35)
[2024-06-12] MEDS: Morphine Sulfate 4 MG/ML CARTRIDGE IVPUSH ×3 (07:53→13:17)
[2024-06-12] MEDS: Ketorolac Tromethamine 15 MG/ML VIAL IVPUSH (07:54)
[2024-06-12] MEDS: 0.9 % Sodium Chloride 1,000 ML 999 ML IV (07:54)
[2024-06-12 08:13] LABS: Alanine Aminotransferase 29 U/L (0-40); Albumin Level 3.9 g/dL (3.5-5.0); Alkaline Phosphatase 77 U/L (39-117); Anion Gap 13 (12-20); Aspartate Amino Transferase 21 U/L (5-37); Bilirubin Direct 0.3 mg/dL (0.0-0.5); Bilirubin Total 0.9 mg/dL (0.0-1.0); Blood Urea Nitrogen 14 mg/dL (9-16); Calcium 9.4 mg/dL (8.4-10.2); Carbon Dioxide 23 mmol/L (22-29); Chloride 106 mmol/L (96-108); Creatinine Clr Calc Pharmacy 96.2; Estimated Glomerular Filt Rate > 60; Glucose Random 127 mg/dL (60-115); Lipase 11 U/L (8-78); Potassium 4.6 mmol/L (3.3-5.1); Sodium 137 mmol/L (135-145); Total Protein 7.9 g/dL (6.5-8.0)
[2024-06-12 08:23] LABS: D Dimer High Sensitivity 685 NG/ML
[2024-06-12] MEDS: iohexoL 350 MG/ML 100 ML INFUS..BTL IV (09:40)
[2024-06-12 11:16] LABS: INTERNATIONAL NORM RATIO 1.1 (0.9-1.1); Prothrombin Time 12.6 SEC (10.9-12.4)
[2024-06-12 11:18] LABS: Partial Thromboplastin Time 30.5 SEC (26.0-36.8)
[2024-06-12 11:37] LABS: Troponin-I High Sensitivity < 2.7 ng/L (<3.5-35.0)
[2024-06-12 11:42] LABS: B Type Natriuretic Peptide < 10 pg/mL (<100)
[2024-06-12] MEDS: Apixaban 5 MG TABLET 10 MG PO ×2 (13:15→21:19)
[2024-06-12] MEDS: oxyCODONE HCl Immed Release 5 MG TABLET PO (13:16)
[2024-06-12] MEDS: Acetaminophen 325 MG TABLET 975 MG PO (13:16)
--- NOTE | 2024-06-12 13:24 | PM.IMHP ---
History of Present Illness Date of Service: 06/12/24 Attending physician on admission: Kelby Le Chief Complaint: Lower back pain Pt is a 63-year-old male with a PMH significant for?esophageal cancer s/p chemo and radiation in 2012 and recent left inguinal hernia repair on 05/29/2024 not on home meds who presents to the ED with?worseing middle back pain x3 days. Pt reports symptoms began on Saturday but was mostly bearable. The following day pain was much worse and pt took some leftover oxy he had from hernia surgery which initially helped some. Also complains of SOB, occasional nonproductive cough, and pain with deep breathing. Subjective fever and chills and some nausea but no vomiting. This morning patient's back pain was ?extreme? and uncontrollable with home oxy. Denies lower leg edema or calf swelling/tenderness. No chest pain/pressure or palpitations. Denies abdominal pain. No headache or acute vision loss. Pt was discharged from the hospital after hernia surgery without overnight stay. The 1st few days after being home pt was more sedentary than usual, though he does report he still got up and walked around the house for exercise. Last weekend pt states he was already outside hiking with his . Denies family hx hypercoagulable states. In the ED pt's vitals stable and largely WNL, satting at 96% on RA. Labs were significant for leukocytosis of 13.8 and D-dimer 685, otherwise grossly unremarkable and around baseline for pt. Stable H&H. No significant electrolyte abnormalities. Renal function baseline. Hepatic function baseline. Troponin negative. BNP negative. CTA of chest found bilateral pulmonary emboli with moderate clot burden most significant in LLL. No evidence of right heart strain. Also showed patchy consolidative and ground-glass opacities left greater than right, likely sequela of PE. CXR showed no active pulmonary disease or acute finding. CTA of abdomen negative for acute intra-abdominal process. EKG demonstrated normal sinus rhythm evidence of significant ischemia. Pt was treated with ondansetron, morphine, IVF, ketorolac, acetaminophen, oxycodone, and Eliquis 10 mg p.o. Pt will be admitted to the hospital for treatment and further evaluation of intractable pain in the setting of acute bilateral pulmonary emboli with moderate clot burden. Review of Systems Review of Systems: Negative except for that which is stated in the HPI. [facility] Medical History History of throat cancer Family History Father Pancreatic cancer Mother Lung cancer Surgical History No pertinent past surgical history Social History Housing: House Are you a primary resident care manager to a significant other at home: No Do you presently have visiting nurse or other home services: No Alcohol intake: current Alcohol intake frequency: holidays/special occasions only Patient Tobacco Use Status: Never used Tobacco Smoked in Last 30 Days: No e-Cigarette/Vaping Use: Never Used Second Hand Smoke Exposure: No Use of substances other than those prescribed or required for medical reasons: No Advance Directives: No Advance Directives Information Provided: No Do you have a plan to hurt others: No Plan service: Yes Current occupational status: employed 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 Current occupational exposures/hazards: No Cognitive needs: No Hearing needs: No Vision needs: Yes Meds Allergies Allergy/AdvReac Type Severity Reaction Status Date / Time No Known Allergies Allergy Verified 06/12/24 07:02 Home Medications ?Medication ?Instructions ?Recorded ?Confirmed ?Last Taken ?Type No Known Home Meds 06/12/24 06/12/24 Unknown History Physical Exam Vital Signs and Narrative: Vital Signs: Last Vital Signs Temp 97.7 F 06/12/24 12:09 Pulse 70 06/12/24 12:09 Resp 16 06/12/24 12:09 BP 122/80 06/12/24 12:09 Pulse Ox 96 06/12/24 12:09 O2 Del Method Room Air 06/12/24 12:09 BMI result Body Mass Index 28.6 General: AOx3, no acute distress Resp: CTA bilaterally CVS: S1, S2, RRR GI: +BS, NT, no distention Back: Diffuse mid-back tenderness Skin: Warm, dry Neuro: Cranial nerves II-XII grossly intact bilaterally. Motor grossly intact bilaterally Extremities: No edema. No calf tenderness. Psych: Appropriate affect Results Labs 06/12/24 07:46 06/12/24 07:46 Labs: Laboratory Results - last 24 hr 06/12/24 06/12/24 06/12/24 07:46 07:52 11:04 MCV 87.8 MCH 29.7 MCHC 33.8 RDW 12.9 Plt Count 285 D MPV 9.4 Immature Gran % (Auto) 0.5 H Neut % (Auto) 85.5 H Lymph % (Auto) 6.0 L [place] % (Auto) 7.2 Eos % (Auto) 0.4 Baso % (Auto) 0.4 Lymph # (Auto) 0.8 L [place] # (Auto) 1.0 Eos # (Auto) 0.1 Baso # (Auto) 0.1 Abs Immat Gran (auto) 0.07 H Absolute Neuts (auto) 11.8 H Absolute Nucleated RBC 0.000 Nucleated RBC % (auto) 0.0 PT 12.6 H INR 1.1 APTT 30.5 D-Dimer High Sensitivty 685 Anion Gap 13 Estim Creat Clear Calc 96.2 Estimated GFR > 60 Random Glucose 127 H Calcium 9.4 Total Bilirubin 0.9 Direct Bilirubin 0.3 AST 21 ALT 29 Alkaline Phosphatase 77 B-Natriuretic Peptide < 10 Total Protein 7.9 Albumin 3.9 Lipase 11 Blood Type O Negative Antibody Screen NEGATIVE Imaging Radiologist's Impressions: Impressions Chest X-Ray 06/12/24 08:10 IMPRESSION: No active pulmonary disease. No acute finding. Electronically signed by: Viral Murdock MD 06/12/2024 08:24 AM EDT Chest CTA 06/12/24 08:29 IMPRESSION: 1. POSITIVE examination for bilateral pulmonary emboli. There is moderate clot burden most significant in the left lower lung. Findings do not meet criteria for submassive PE (no right heart strain, no reflux into the IVC). 2. No evidence of acute aortic syndrome or aneurysm. 3. Lungs demonstrate patchy consolidative opacities and groundglass opacities left greater than right lower lobes, and posterior right middle lobe and lingula. Findings are likely sequela of PE although superimposed pneumonia is also a consideration. 4. There is a trace left pleural effusion. There is no pneumothorax. 5. Refer to the dedicated abdomen and pelvis CT for abdominal findings. Electronically signed by: Viral Murdock MD 06/12/2024 10:15 AM EDT RP Abdomen/Pelvis CT 06/12/24 09:32 IMPRESSION: No acute intra-abdominal process seen. Mild constipation. Bilateral renal cysts. Large exophytic cyst lower pole measuring 7.5 cm No radiopaque renal calculi seen. Bilateral vasectomy changes in the inguinal canal. Postsurgical changes slightly more prominent in the left proximal inguinal canal. Bibasilar dependent atelectatic changes. Fleischner guidelines were followed. Electronically signed by: Reza Ellington MD 06/12/2024 12:25 PM EDT RP Assessment and Plan (1) Pulmonary embolism: Status: Acute (2) Intractable back pain: Status: Acute Plan Pt is a 63-year-old male with a PMH significant for?esophageal cancer s/p chemo and radiation in 2012 and recent left inguinal hernia repair on 05/29/2024 not on home meds who presents to the ED with?worseing middle back pain x3 days. Pt will be admitted to the hospital for treatment and further evaluation of intractable pain in the setting of acute bilateral pulmonary emboli with moderate clot burden. Intractable back pain in the setting of acute bilateral pulmonary emboli CTA showing bilateral pulmonary emboli with moderate clot burden without evidence of right heart strain Pt with intractable mid-back pain not alleviated by p.o. meds in ED Unclear etiology: secondary to increased sendentariness s/p recent hernia surgery vs hypercoaguable state Will treat with Eliquis 10mg p.o. b.i.d. x7 days, 5mg p.o. b.i.d. thereafter IV analgesics for pain management Echocardiogram Venous duplex U/S of lower extremities bilaterally Follow up outpatient with ENT or heme/onc for possible additional hypercoagulable workup Follow CBC Leukocytosis WBCs 13.8 at time of presentation Likely reactionary, no clinical indication of superimposed pneumonia Follow CBC Right renal mass Renal US on 05/07/2024 found complex septated exophytic cystic lesion of right kidney Follow up outpatient with Dr. Ha Full Code Attending:?Dr. Le DVT Prophylaxis: On Eliquis Pt will require a hospitalization of at least two nights for treatment of?intractable back pain in the setting of acute bilateral pulmonary emboli with moderate clot burden. Given that pt's pain has not been alleviated by p.o. analgesics, pt will require hospital care for administration of IV analgesics. Pt will also receive additional workup echocardiogram and close monitoring respiratory status. Quality Stroke Does the patient have a stroke diagnosis?: No VTE Prior VTE?: No VTE Risk Level:: Medical - moderate - high VTE Device Contraindication: Treatment Not Indicated VTE Drug Contraindication: N/A - Med Ordered
--- NOTE | 2024-06-12 14:08 | PHA.MEDREC ---
Addendum entered by Jaimee Zhou RPh 06/12/24 14:30: Reviewed by [facility] Original Note: Pharmacy Consult ? Medication Reconciliation Pharmacy has completed the medication reconciliation. Patient states he is not taking any medications.
[2024-06-12] MEDS: 0.9 % Sodium Chloride Flush 3 ML SYRINGE IVFLUSH ×2 (16:17→21:19)
--- NOTE | 2024-06-12 17:00 | CA_ITS ---
Transthoracic Echocardiogram Patient (Last, First, Middle): Andre Lawler, Gender: Male Date of : 1960 Age: 63 Procedure Date: 06/12/2024 Procedure Type: Transthoracic Echocardiogram Location: ER Height: 187.96 cm Weight: 104.33 kg BSA: 2.31 m2 Heart Rate: bpm BP: 122 / 80 mmHg Configuration Management Advisor: Referring MD: Aysha QUACH Symptoms: Bilateral PE, evaluate for right heart strain Study Quality: Adequate ECG Rhythm: Sinus Conclusions: - The left ventricular systolic function is hyperdynamic. The calculated ejection fraction is 70% by biplane method. - Mildly increased right ventricular cavity size. - No obvious valvular pathology seen on this study. Findings Left Ventricle Normal left ventricular cavity size. There is mildly increased left ventricular wall thickness. The left ventricular systolic function is hyperdynamic. The calculated ejection fraction is 70% by biplane method. There is no evidence of regional wall motion abnormalities. Diastolic function is normal for age. Right Ventricle Mildly increased right ventricular cavity size. There is normal right ventricular systolic function. Atria Both atria are normal in size. Aortic Valve There is a normal trileaflet aortic valve. There is no aortic valve stenosis. There is no aortic valve regurgitation. Mitral Valve The mitral valve appears normal. There is no mitral valve regurgitation. There is no mitral valve stenosis. Pulmonic Valve The pulmonic valve is likely normal. There is trace pulmonic valve regurgitation. Tricuspid Valve There is trace tricuspid valve regurgitation. There is no evidence of pulmonary hypertension. Great Vessels The asc aorta is normal in size. Venous The inferior vena cava is normal in size and collapses greater than 50% with inspiration. Pericardium/Pleural There is no evidence of pericardial effusion. Prior Study Comparison No prior study available for comparison. Recommendations, Care & Conclusions No obvious valvular pathology seen on this study. Measurements 2D Linear Measurements IVSd: 1.26 0.6-0.9/0.6-1.0 cm LVIDd: 4.91 3.9-5.3/4.2-5.9 cm LVIDd Index: 2.13 2.4-3.2/2.2-3.1 cm/m2 LVIDs: 2.66 2.0-3.6 cm LVPWd: 1.26 0.7-1.1 cm Ao Root: 3.80 2.1-3.5 cm LA Diam: 3.70 2.7-3.8/3.0-4.0 cm LAIDs Index: 1.60 1.5-2.3 cm/m2 LV Mass: 303.47 67-162/88-224 g LV Mass Index: 131.37 43-95/49-115 g/m2 LVOT Diam: 2.40 3.0+(-)1.3 cm 2D Systolic Function EF 4C: 60.70 >55% EF 2C: 77.90 >55% EF BiP: 70.20 >55% Mitral Valve MV Pk E: 0.64 MV PK A: 0.73 MV Decel Time: 142.00 E/A: 0.90 E'Lateral: 12.50 E'Medial: 5.87 E/E' Med: 11.00 E/E' Lat: 5.10 PHT: 41.00 MVA PHT: 5.37 Decel [place]: 4.54 Aortic Valve AoV Pk Zac: 1.21 AoV Mn Zac: 0.84 AoV VTI: 0.26 AoV Pk Grad: 6.00 Aov Mn Grad: 3.00 PAUL Cont.VTI: 4.03 LVOT LVOT Pk Zac: 1.08 LVOT Mn Zac: 0.72 LVOT VTI: 0.23 LVOT Pk Grad: 5.00 LVOT Mn Grad: 2.00 LVOT Diam: 2.40 LVOT Area: 4.52 Diastolic Function MV Pk E: 0.64 MV Pk A: 0.73 E/A: 0.90 E'Medial: 5.87 E/E' Med: 11.00 E' Laterial: 12.50 E/E' Lat: 5.10 Right Ventricle TAPSE (mm): 28.00 TVS' Zac: 14.00 Tricuspid Valve TR Pk Zac: 2.02 TR Pk Grad: 16.00 RA Press: 3.00 RVSP: 19.00 Great Vessels Aorta Ao Root-2D: 3.80 2.0-3.7 cm Ao Asc: 3.30 2.1-3.4 cm Pulmonary Valve PV Pk Zac: 0.97 Peak PV Grad: 4.00 Updated in Other Vendor System with Status of Final Zaid Benitez MD electronically signed on 06/12/2024 4:49:03 PM with status of Final
--- NOTE | 2024-06-12 18:46 | PC.NURSE ---
Pt c/o nausea however not eligible for PRN Zofran until 2234. Message sent to Dr. Le who permits an additional 4mg dose at this time. When this RN returns to Pt room, Pt reports nausea had subsided a that time. Will report off to oncoming overnight RN orders for Zofran.
--- NOTE | 2024-06-12 19:12 | PC.NURSE ---
This RN assumed pt care @ 1900. Pt a&ox4, no signs of distress. Pt denies pain at this time Pts family at bedside Plan of care ongoing.
[2024-06-12] MEDS: Calcium Carbonate 750 MG TAB.CHEW PO (19:52)
--- NOTE | 2024-06-12 19:53 | PC.NURSE ---
Pt reporting heart burn Pt medicated per [facility] Plan of care ongoing.
[2024-06-13 03:38] VITALS: BP 117/65; PULSE 71; RESP 18; TEMP 36.9; O2SAT 96
[2024-06-13 08:00] VITALS: BP 121/72; PULSE 75; RESP 14; TEMP 37.3; O2SAT 94
[2024-06-13] MEDS: 0.9 % Sodium Chloride Flush 3 ML SYRINGE IVFLUSH (08:00)
[2024-06-13] MEDS: Apixaban 5 MG TABLET 10 MG PO (08:00)
[2024-06-13 08:11] LABS: Hematocrit 42.9 % (42.0-52.0); Hemoglobin 14.3 g/dl (14.0-18.0); Mean Corpuscular HGB Conc 33.3 g/dl (31.0-36.0); Mean Corpuscular Hemoglobin 29.7 pg (27.0-33.0); Mean Platelet Volume 12.9 fL (9.4-12.4); Platelet Count 154 X10*3/uL (160-400); Red Blood Count 4.82 X10*6/uL (4.60-5.80); White Blood Count 9.5 X10*3/uL (4.8-10.8)
--- NOTE | 2024-06-13 08:31 | P.DS_ITS ---
DS: Providers Provider Date of Service: 06/13/24 Date of admission: 06/12/24 14:20 Date of discharge: 06/13/24 Primary care physician: Jp Yi PA-C DS: Diagnosis Discharge Diagnosis (1) Pulmonary embolism: Status: Acute (2) Intractable back pain: Status: Acute DS: Summary Hospital Course Hospital Course: History and physical as per admitting provider. Pt is a 63-year-old male with a PMH significant for?esophageal cancer s/p chemo and radiation in 2012 and recent left inguinal hernia repair on 05/29/2024 not on home meds who presents to the ED with?worseing middle back pain x3 days. Pt reports symptoms began on Saturday but was mostly bearable. The following day pain was much worse and pt took some leftover oxy he had from hernia surgery which initially helped some. Also complains of SOB, occasional nonproductive cough, and pain with deep breathing. Subjective fever and chills and some nausea but no vomiting. This morning patient's back pain was ?extreme? and uncontrollable with home oxy. Denies lower leg edema or calf swelling/tenderness. No chest pain/pressure or palpitations. Denies abdominal pain. No headache or acute vision loss. Pt was discharged from the hospital after hernia surgery without overnight stay. The 1st few days after being home pt was more sedentary than usual, though he does report he still got up and walked around the house for exercise. Last weekend pt states he was already outside hiking with his . Denies family hx hypercoagulable states. In the ED pt's vitals stable and largely WNL, satting at 96% on RA. Labs were significant for leukocytosis of 13.8 and D-dimer 685, otherwise grossly unremarkable and around baseline for pt. Stable H&H. No significant electrolyte abnormalities. Renal function baseline. Hepatic function baseline. Troponin negative. BNP negative. CTA of chest found bilateral pulmonary emboli with moderate clot burden most significant in LLL. No evidence of right heart strain. Also showed patchy consolidative and ground- glass opacities left greater than right, likely sequela of PE. CXR showed no active pulmonary disease or acute finding. CTA of abdomen negative for acute intra-abdominal process. EKG demonstrated normal sinus rhythm evidence of significant ischemia. Pt was treated with ondansetron, morphine, IVF, ketorolac, acetaminophen, oxycodone, and Eliquis 10 mg p.o. Pt will be admitted to the hospital for treatment and further evaluation of intractable pain in the setting of acute bilateral pulmonary emboli with moderate clot burden. 63-year-old man admitted for intractable back pain and acute bilateral pulmonary emboli. CTA showing bilateral pulmonary emboli with moderate clot burden without evidence of right heart strain. Unclear etiology however patient had hernia surgery 2 weeks ago and he was deduced that the development of pulmonary emboli was from sedentary illness post surgery as patient reported that he had not moved around much for 2 days. He was started on Eliquis 10 mg p.o. b.i.d. for 7 days then 5 mg twice daily. Venous duplex ultrasound was negative for DVT. Patient can follow up with Hematology for further outpatient hypercoagulable workup. Patient reports back pain significantly improved. Leukocytosis. Likely reactionary. No infectious source Right renal mass. Renal ultrasound in 05/27/2024 phone complex septated cystic lesion of the right kidney. Outpatient follow-up with Urology Time Attestation Discharge Coordination Time (in mins): 42 Quality: Safe Use of Opioids Does Pt have an Active Cancer Diagnosis on the Problem List?: No Quality: Stroke Does the patient have a stroke diagnosis?: No Physical Exam Vital Signs: Vital Signs: Last Vital Signs Temp 99.2 F 06/13/24 08:00 Pulse 75 06/13/24 08:00 Resp 14 06/13/24 08:00 BP 121/72 06/13/24 08:00 Pulse Ox 94 06/13/24 08:00 O2 Del Method Room Air 06/13/24 08:00 BMI result Body Mass Index 28.6 Appearing in no acute distress head is normocephalic atraumatic eyes pupils are PERRLA sclera is anicteric mouth throat mucous membranes are intact and moist neck is supple no lymphadenopathy, no JVD noted lung sounds are clear to auscultation heart regular rate rhythm, clear S1, S2 positive bowel sounds, abdomen is soft, nontender neuro patient is alert x3, no focal deficits DS: Data Data Completed and Pending Labs on day of discharge: Laboratory Results - last 24 hr 06/12/24 06/12/24 06/12/24 07:46 07:52 11:04 WBC RBC Hgb Hct MCV MCH MCHC RDW Plt Count MPV Absolute Nucleated RBC Nucleated RBC % (auto) PT 12.6 H INR 1.1 APTT 30.5 Troponin I High Sens Cancelled < 2.7 B-Natriuretic Peptide < 10 Blood Type O Negative Antibody Screen NEGATIVE 06/13/24 06:34 WBC 9.5 RBC 4.82 Hgb 14.3 Hct 42.9 MCV 89.0 MCH 29.7 MCHC 33.3 RDW 13.0 Plt Count 154 L D MPV 12.9 H Absolute Nucleated RBC 0.000 Nucleated RBC % (auto) 0.0 PT INR APTT Troponin I High Sens B-Natriuretic Peptide Blood Type Antibody Screen Discharge Plan Discharge Anticipated Discharge Date/Time: 06/13/24 08:25 Patient Disposition: Home, Self-Care Discharge Diagnosis: Intractable back pain Pulmonary embolism Referrals: Arlyn Peguero MD [Physician] - None Jp Yi PA-C [Primary Care Provider] - 1 Week Discharge Medications: New oxycodone 5 mg tablet 5 mg PO Q8H PRN (Reason: pain) Qty: 12 0RF Rx Instructions: Partial Fill upon patient request. Eliquis 5 mg tablet 10 mg PO BID Qty: 69 0RF Rx Instructions: Take 10 mg twice daily for a total of 7 days (already had 3 doses while inpatient) then 5 mg twice daily Discharge Orders: Discharge Order (Routine); Ordered 06/13/24 Ordered By: Chanelle Fonseca Diet: Advance to usual diet Activity on Discharge: As tolerated Stand Alone Forms: Patient Portal Discharge page Print Language: Burkinan Care Plan Goals: Take Eliquis as directed, 10 mg twice a day for approximately 8 more days then 5 mg twice daily. Follow up with Hematology for further hypercoagulable workup Health Concerns: Intractable back pain Pulmonary embolism Plan of Treatment: Follow up with primary care provider as needed Take all medications as prescribed Assessment: See discharge summary Patient Instructions: Apixaban (By mouth), Pulmonary Embolism (GEN)
[2024-06-13 08:43] LABS: Anion Gap 14 (12-20); Blood Urea Nitrogen 17 mg/dL (9-16); Calcium 9.2 mg/dL (8.4-10.2); Carbon Dioxide 21 mmol/L (22-29); Chloride 108 mmol/L (96-108); Estimated Glomerular Filt Rate > 60; Glucose Random 89 mg/dL (60-115); Potassium 4.5 mmol/L (3.3-5.1); Sodium 138 mmol/L (135-145)
--- NOTE | 2024-06-13 09:03 | MHC.CM.PN ---
Patient dc'd home self care via private transport prior to CM assessment.
== END 2024-06-13 08:48 | disposition home or self-care (01) | DRG 176 ==
LOC: HO.ED 13:19 → HO.EDOVER 14:21 → HO.S3 19:29
PROVIDERS: Admitting Provider Student in an Organized Health Care Education/Training Program; Emergency Provider Emergency Medicine; PCP Physician Assistant; Visit Provider Nurse Practitioner Acute Care
DX: I26.99 Other pulmonary embolism without acute cor pulmonale (principal); N28.9 Disorder of kidney and ureter, unspecified; Z85.21 Personal history of malignant neoplasm of larynx; Z92.21 Personal history of antineoplastic chemotherapy; Z92.3 Personal history of irradiation
CPT/HCPCS: 36415; 71045; 71275; 74177; 80048; 80076; 83690; 83880; 84484; 85025; 85027; 85379; 85610; 85730; 86850; 86900; 86901; 93005; 93306; 93970; 99285; J1885; J2270; J2405; Q9967

== ENCOUNTER → 2024-06-12 07:25 | Outpatient (BNV) | payer OTHER, SELFPAY | PROVIDERS: Emergency Provider Emergency Medicine; PCP Physician Assistant; Visit Provider Radiology Diagnostic Radiology | DX: N28.1 Cyst of kidney, acquired (principal); I26.99 Other pulmonary embolism without acute cor pulmonale; M54.6 Pain in thoracic spine | CPT/HCPCS: 71045; 71275; 74177; 93970 ==

== ENCOUNTER 2024-06-12 14:20 | Outpatient (BNV) | payer OTHER, SELFPAY | END 2024-06-12 17:00 | PROVIDERS: Admitting Provider Student in an Organized Health Care Education/Training Program; Emergency Provider Emergency Medicine; PCP Physician Assistant; Visit Provider Internal Medicine | DX: R94.31 Abnormal electrocardiogram [ECG] [EKG] (principal); M54.9 Dorsalgia, unspecified | CPT/HCPCS: 93010; 93306 ==

== ENCOUNTER → 2024-06-12 14:20 | Outpatient (BNV) | payer OTHER, SELFPAY | PROVIDERS: Admitting Provider Student in an Organized Health Care Education/Training Program; Emergency Provider Emergency Medicine; PCP Physician Assistant; Visit Provider Student in an Organized Health Care Education/Training Program | DX: I26.99 Other pulmonary embolism without acute cor pulmonale (principal); M54.9 Dorsalgia, unspecified | CPT/HCPCS: 99222; 99239 ==

== ENCOUNTER 2024-06-19 07:21 | Outpatient (AMB) | payer OTHER, SELFPAY ==
[2024-06-19 07:41] VITALS: BP 128/82; PULSE 71; O2SAT 98; BMI 28.8
--- NOTE | 2024-06-19 07:41 | MHC.PC.OV ---
Vital Signs 06/19/24 07:41 Height 6 ft 2 in Weight 224 lb BMI 28.8 BP 128/82 Blood Pressure Location Lt brachial Position Sitting Pulse 71 Pulse Source Pulse Oximeter Pulse Oximetry (%) 98 Oxygen Delivery Method Room Air Intake Visit Reasons: TCM [facility] [place] [place] 06/13 Bilateral Pulmonary Emboli Allergies No Known Allergies Allergy (Verified 06/19/24 07:42) Tobacco use date assessed: 06/19/24 Dental Screening Dental Screen Date: 06/19/24 Did you have a dental visit in the last 12 months?: Yes Did you have a dental problem in the last 6 months where you did not have access to dental care?: No Was dental information given to patient?: Patient has dentist HPI TCM TCM Information Date of Discharge 06/13/24 Discharged From [facility] HPI Comments History of Present Illness Details 63 y/o male patient who presents to the clinic today for TCM. Pmhx significant for esophageal cancer s/p chemo and radiation in 2012 and recent left inguinal hernia repair on 05/29/2024. He was admitted at [facility] [place] [place] on 06/12-06/13 due to Pulmonary Embolism. CTA of chest found bilateral pulmonary emboli with moderate clot burden most significant in LLL. No evidence of right heart strain. Also showed patchy consolidative and ground-glass opacities left greater than right, likely sequela of PE. CXR showed no active pulmonary disease or acute finding. CTA of abdomen negative for acute intra-abdominal process. EKG demonstrated normal sinus rhythm evidence of significant ischemia. Right renal mass. Renal ultrasound in 05/27/2024 complex septated cystic lesion of the right kidney. [facility] Medical History History of throat cancer Surgical History No pertinent past surgical history Family History Father Pancreatic cancer Mother Lung cancer Social History Household Members: Significant Other Housing: House Are you a primary critical care physician assistant to a significant other at home: No Do you presently have visiting nurse or other home services: No Alcohol intake: current Alcohol intake frequency: holidays/special occasions only Patient Tobacco Use Status: Never used Tobacco Tobacco use type: Cigarette e-Cigarette/Vaping Use: Never Used Second Hand Smoke Exposure: No service: Yes Current occupational status: employed 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 Current occupational exposures/hazards: No Cognitive needs: No Hearing needs: No Vision needs: Yes Questionnaire PHQ-9 Over the last 2 weeks, how often have you been bothered by any of the following problems? 1. Little interest or pleasure in doing things: not at all 2. Feeling down, depressed, or hopeless: not at all 3. Trouble falling or staying asleep, or sleeping too much: nearly every day 4. Feeling tired or having little energy: nearly every day 5. Poor appetite or overeating: not at all 6. Feeling bad about yourself - or that you are a failure or have let yourself or your family down: not at all 7. Trouble concentrating on things, such as reading the newspaper or watching television: not at all 8. Moving or speaking so slowly that other people could have noticed. Or the opposite - being so fidgety or restless that you have been moving around a lot more than usual: not at all 9. Thoughts that you would be better off or of hurting yourself in some way: not at all Total score: 6 Depression Screening Interpretation: Negative Depression Screening Done: Yes 93440 - PHQ-9 Billing: Yes Source: Developed by Drs. Steve Gutierrez, Shaquille Edouard and colleagues, with an educational shahida from [employer]. Thrive Questionnaire Date Thrive assessed: 06/19/24 NEEL-7 AMB Questionnaire NEEL-7 Date NEEL - 7 assessed: 06/19/24 Feeling nervous, anxious, or on edge: 0 = Not at all Not being able to stop or control worryin = Not at all Worrying too much about different things: 0 = Not at all Trouble relaxin = Not at all Being so restless that it is hard to sit still: 0 = Not at all Becoming easily annoyed or irritable: 0 = Not at all Feeling afraid as if something awful might happen: 0 = Not at all Total NEEL-7 score (0-4 normal; 5-9 mild; 10-14 moderate; 15-21 severe): 0 Source: Developed by Tala Hidalgo Prabhu, Shaquille Christine and colleagues, with an educational shahida from [employer]. NEEL-7 Assessment Billing NEEL-7 Assessment Tool: NEEL-7 Assessment 18875 Review of Systems Const All systems reviewed & are unremarkable except as noted in HPI and below Physical exam (Primary Care) Vital Signs: Last Vital Signs Pulse 71 06/19/24 07:41 BP 128/82 06/19/24 07:41 Pulse Ox 98 06/19/24 07:41 Oxygen Delivery Method Room Air 06/19/24 07:41 BMI result Body Mass Index 28.8 Tobacco/Smoking Status: Tobacco use Status Tobacco use date assessed 06/19/24 06/19/24 07:45 Patient Tobacco Use Status Never used Tobacco 06/19/24 07:45 Tobacco use type Cigarette 06/19/24 07:45 e-Cigarette/Vaping Use Never Used 06/19/24 07:45 PHQ-9: PHQ-9 Score PHQ-9: Total score 6 06/19/24 07:52 Depression Screening Interpretation: Negative Thrive Assessment: Date of Thrive Assessment Date Thrive assessed 06/19/24 06/19/24 07:45 Const General: cooperative, comfortable and no acute distress Nutritional Appearance: well nourished Orientation/consciousness: patient oriented x3 Resp Effort & Inspection: normal respiratory effort and able to speak in complete sentences Auscultation: clear to auscultation bilaterally Cardio Heart sounds: S1 normal heart sound present and S2 normal heart sound present Neuro General: patient oriented x3, gait normal and moves all extremities Psych Speech and movement: Normal speech and movement present Coding Level of Care Code TCM Mod MDM <= 7 Days Diagnoses Acute pulmonary embolism, unspecified pulmonary embolism type, unspecified whether acute cor pulmonale present I26.99 Acute cor pulmonale presence: unspecified Chronicity: acute Pulmonary embolism type: unspecified Additional Codes NEEL-7 Assessment Billing - NEEL-7 Assessment Tool: NEEL-7 Assessment [id number] ([id number]) PHQ-9 - 39012 - PHQ-9 Billing: Yes ([id number]) Time Spent (min) 20 Assessment & Plan Assessment & Plan (1) Pulmonary embolism: Code(s): I26.99 - Other pulmonary embolism without acute cor pulmonale Category: Medical Qualifiers: Acute cor pulmonale presence: unspecified Chronicity: acute Pulmonary embolism type: unspecified Qualified Code(s): I26.99 - Other pulmonary embolism without acute cor pulmonale Plan: Placed Referral for Hematology. Refilled Apixaban for 2 months. Orders: Referrals Hematology & Oncology Referral I26.99 - Other pulmonary embolism without acute cor pulmonale Medications: New apixaban 5 mg PO BID 2 months 120 tabs 0RF I26.99 - Other pulmonary embolism without acute cor pulmonale
== END 2024-06-19 08:03 | disposition home or self-care (01) ==
LOC: HO.HMCH 07:22
PROVIDERS: PCP Physician Assistant; Visit Provider Nurse Practitioner Family
DX: I26.99 Other pulmonary embolism without acute cor pulmonale (principal)

== ENCOUNTER → 2024-06-19 07:21 | Outpatient (BNVA) | payer OTHER, SELFPAY | PROVIDERS: PCP Physician Assistant; Visit Provider Nurse Practitioner Family | DX: I26.99 Other pulmonary embolism without acute cor pulmonale (principal); Z79.01 Long term (current) use of anticoagulants | CPT/HCPCS: 96127 ==

== ENCOUNTER → 2024-07-16 08:20 | Outpatient (BNV) | payer OTHER, SELFPAY | PROVIDERS: PCP Physician Assistant; Visit Provider Radiology Diagnostic Radiology | DX: N28.1 Cyst of kidney, acquired (principal) | CPT/HCPCS: 74183 ==

== ENCOUNTER 2024-07-16 08:32 | Outpatient (REF) | payer OTHER, SELFPAY ==
--- NOTE | ~2024-07-16 | MR_ITS ---
EXAMINATION: MRI Abdomen without and with contrast HISTORY: N28.89 - RIGHT KIDNEY MASS COMPARISON: Correlation is made with abdominal CT scan dated 06/12/2024 and 04/28/2024, and a renal ultrasound dated 05/07/2024. TECHNIQUE: Axial in and out of phase T1-weighted gradient echo, axial diffusion weighted, and axial and coronal HASTE T2 with fat saturation images were obtained through the abdomen. Subsequently, fat suppressed axial and coronal T1-weighted images were obtained after the intravenous administration of 10 mL Gadavist. FINDINGS: There is a 2.0 x 1.1 x 1.4 cm mass at the posterior aspect of the upper pole of the right kidney corresponding to the abnormality noted on ultrasound and CT. The mass demonstrates overall decreased T2 signal intensity, a small cystic component, and a 1.3 cm enhancing nodule. This represents a Bosniak IV lesion. There is a 1.2 cm cyst at the upper pole of the right kidney. The left kidney demonstrates a 2.3 cm cyst at the medial aspect of the interpolar region and a 7.1 cm cyst at the lower pole. There is no hydronephrosis. The renal arteries and veins are patent. There is no significant loss of signal intensity within the liver on opposed phase imaging to suggest steatosis. There are 2 cysts in the left lobe of the liver measuring 2.1 and 2.4 cm in diameter. A smaller cyst is noted in the inferior aspect of the right hepatic lobe. There is no enhancing liver mass. The hepatic and portal veins are patent. There is no intra or extrahepatic biliary ductal dilatation. The gallbladder is unremarkable. The spleen, pancreas, and adrenals are unremarkable. No retroperitoneal lymphadenopathy or ascites is identified. The visualized bones demonstrate normal marrow signal intensity. Incidental note is made of airspace opacity at the left lung base, suspicious for pneumonia. MR/MR abdomen wo/w con IMPRESSION: 1. 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 2. Bilateral renal cysts as described. 3. Patchy airspace opacity at the left lung base, suspicious for pneumonia. Electronically signed by: Steve Horan MD 07/16/2024 09:56 AM EDT RP
[2024-07-16] MEDS: gadobutroL 10 ML VIAL IVPUSH (09:25)
== END 2024-07-16 08:33 | disposition home or self-care (01) ==
LOC: HO.MRI 08:32
PROVIDERS: PCP Physician Assistant; Visit Provider Urology
DX: N28.89 Other specified disorders of kidney and ureter (principal)
CPT/HCPCS: 74183; A9585

== ENCOUNTER 2024-07-21 10:55 | Outpatient (AMB) | payer OTHER, SELFPAY ==
--- NOTE | 2024-07-21 07:22 | A.OFFVIS_ITS ---
Intake Visit Reasons: 2m/MRI Allergies No Known Allergies Allergy (Verified 06/19/24 07:42) [facility] Medical History History of throat cancer Surgical History No pertinent past surgical history Family History Father Pancreatic cancer Mother Lung cancer Social History Household Members: Significant Other Housing: House Are you a primary urgent care nurse practitioner to a significant other at home: No Do you presently have visiting nurse or other home services: No Alcohol intake: current Alcohol intake frequency: holidays/special occasions only Patient Tobacco Use Status: Never used Tobacco Tobacco use type: Cigarette e-Cigarette/Vaping Use: Never Used Second Hand Smoke Exposure: No service: Yes Current occupational status: employed 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
--- NOTE | 2024-07-21 10:56 | A.OFFVIS_ITS ---
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 Telehealth appointment video connection started but patient was not able to hear me well, changed to landline. Reviewed imaging results. MRI Abd-07/16/24--2.0 x 1.1 x 1.4 cm Bosniak IV lesion at the posterior aspect of the upper pole of the right kidney as described, with a high probability of malignancy. 06/11/24--Andre is a 63 year old male here for a new patient evaluation for renal lesion. He denies gross hematuria, denies irritative voiding symptoms. Ultrasound findings discussed: 1.5 cm Complex septated exophytic cystic lesion, right kidney. Recommend dedicated IV contrast enhanced CT versus MRI for further imaging characterization. [facility] Medical History History of throat cancer Surgical History No pertinent past surgical history Family History Father Pancreatic cancer Mother Lung cancer Social History Household Members: Significant Other Housing: House Are you a primary district manager primary care sales to a significant other at home: No Do you presently have visiting nurse or other home services: No Alcohol intake: current Alcohol intake frequency: holidays/special occasions only Patient Tobacco Use Status: Never used Tobacco Tobacco use type: Cigarette e-Cigarette/Vaping Use: Never Used Second Hand Smoke Exposure: No service: Yes Current occupational status: employed 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 Current occupational exposures/hazards: No Cognitive needs: No Hearing needs: No Vision needs: Yes Review of Systems Const All systems reviewed & are unremarkable except as noted in HPI and below Reports no additional complaints Eyes Reports no additional complaints ENT Reports no additional complaints Card Reports no additional complaints Resp Reports no additional complaints GI Reports no additional complaints Reports as per HPI Musc Reports no additional complaints Skin/Breast Reports system reviewed and no additional complaints, except as documented Neuro Reports no additional complaints Psych Reports no additional complaints Endo Reports no additional complaints Tesfaye/Lymph Reports no additional complaints Aller/Immun Reports no additional complaints Telehealth Telehealth Telehealth Platform: [employer] Location of provider rendering services: practice address Location of patient: address on file Patient Identification confirmed using: Name, : Yes Telehealth method: video Patient verbally consented to treatment: Yes Patient verbally consented to billing insurance company: Yes Patient informed of any privacy concerns related to visit: Yes Results Reviewed Results Reviewed: Date of Service: 07/16/24 EXAMINATION: MRI Abdomen without and with contrast HISTORY: N28.89 - RIGHT KIDNEY MASS COMPARISON: Correlation is made with abdominal CT scan dated 06/12/2024 and 04/28/2024, and a renal ultrasound dated 05/07/2024. TECHNIQUE: Axial in and out of phase T1-weighted gradient echo, axial diffusion weighted, and axial and coronal HASTE T2 with fat saturation images were obtained through the abdomen. Subsequently, fat suppressed axial and coronal T1-weighted images were obtained after the intravenous administration of 10 mL Gadavist. FINDINGS: There is a 2.0 x 1.1 x 1.4 cm mass at the posterior aspect of the upper pole of the right kidney corresponding to the abnormality noted on ultrasound and CT. The mass demonstrates overall decreased T2 signal intensity, a small cystic component, and a 1.3 cm enhancing nodule. This represents a Bosniak IV lesion. There is a 1.2 cm cyst at the upper pole of the right kidney. The left kidney demonstrates a 2.3 cm cyst at the medial aspect of the interpolar region and a 7.1 cm cyst at the lower pole. There is no hydronephrosis. The renal arteries and veins are patent. There is no significant loss of signal intensity within the liver on opposed phase imaging to suggest steatosis. There are 2 cysts in the left lobe of the liver measuring 2.1 and 2.4 cm in diameter. A smaller cyst is noted in the inferior aspect of the right hepatic lobe. There is no enhancing liver mass. The hepatic and portal veins are patent. There is no intra or extrahepatic biliary ductal dilatation. The gallbladder is unremarkable. The spleen, pancreas, and adrenals are unremarkable. No retroperitoneal lymphadenopathy or ascites is identified. The visualized bones demonstrate normal marrow signal intensity. Incidental note is made of airspace opacity at the left lung base, suspicious for pneumonia. IMPRESSION: 1. 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 Other findings as above. Date of Service: 05/07/24 US RETROPERITONEAL LIMITED, RIGHT (RENAL ONLY) CLINICAL INFORMATION: Disorder of the kidney and ureter.. COMPARISON: Correlated to CT dated April 28, 2024. TECHNIQUE: Real-time ultrasound of the right kidney using grayscale and color Doppler technique. FINDINGS: RIGHT KIDNEY: 12 x 7 x 7 cm. Normal echotexture. Normal renal cortical thickness. No hydronephrosis. There is a 1.5 cm, exophytic, lobulated and septated anechoic lesion centered in the posterior upper pole/midportion junction. No flow on color Doppler interrogation. IMPRESSION: Complex septated exophytic cystic lesion, right kidney. Recommend dedicated IV contrast enhanced CT versus MRI for further imaging characterization. No hydronephrosis.. Date: 04/28/24--CLINICAL HISTORY: K42.9 - Umbilical hernia without obstruction or gangrene CT abdomen and pelvis with contrast Comparison: None Findings: No consolidation or effusion. Benign-appearing cysts within the left hepatic lobe measuring up to 2.3 cm. The gallbladder and biliary tree, spleen, pancreas and adrenal glands are unremarkable. Bilateral benign-appearing renal cysts, the largest measuring 7.3 cm arising from the left lower pole. Punctate nonobstructing stone in the mid right kidney. Indeterminate lesion arises exophytically from the posterior aspect of the right kidney measuring 1.9 cm on image 27 of series 3. No bowel obstruction, pneumoperitoneum, or pneumatosis. There is a fat-containing inguinal hernia that also contains a small portion of sigmoid colon. No inflammatory change. Bladder and prostate are unremarkable. Normal appendix. No adenopathy or fluid collections. Patent vasculature. No acute fracture. IMPRESSION: 1. Left inguinal hernia containing fat and small amount of sigmoid colon. No inflammation or obstruction. 2. Indeterminate exophytic mass arising from the posterior aspect of the right kidney. Recommend further characterization with MRI abdomen with and without contrast. At a minimum follow-up ultrasound is recommended. 3. Benign-appearing hepatic and renal cysts. Assessment & Plan Assessment & Plan (1) Pulmonary embolism: Code(s): I26.99 - Other pulmonary embolism without acute cor pulmonale Category: Medical Qualifiers: Acute cor pulmonale presence: unspecified Chronicity: acute Pulmonary embolism type: unspecified Qualified Code(s): I26.99 - Other pulmonary embolism without acute cor pulmonale (2) Right kidney mass: Code(s): N28.89 - Other specified disorders of kidney and ureter Category: Medical Plan Pt is on eliquis for PE will need to wait for him to complete tretment prior to cryoablation therapy Patient Instructions: The patient had an opportunity to ask questions regarding treatment plan. The patient expressed understanding and agreement with the above treatment plan. The patient is aware they should contact our office by phone for worsening of their current condition or the appearance of new symptoms. Compliance is encouraged with any medications and followup testing that is ordered. It is a privilege to be allowed the opportunity to participate in the urologic care of your patient. If you have any questions or concerns regarding treatment for the above conditions please do not hesitate to contact me. The office telephone contact is [phone]. This note is constructed in part using voice recognition software. While every effort has been made to ensure accuracy early childhood education coordinator errors may have been included. Yours sincerely, Kelley Ha MD Coding Level of Care Code Tele Est Pt Level 4 (92920) Diagnoses Acute pulmonary embolism, unspecified pulmonary embolism type, unspecified whether acute cor pulmonale present I26.99 Acute cor pulmonale presence: unspecified Chronicity: acute Pulmonary embolism type: unspecified Right kidney mass N28.89
== END 2024-07-21 15:05 | disposition home or self-care (01) ==
LOC: HO.HUSH 10:55
PROVIDERS: PCP Physician Assistant; Visit Provider Urology
DX: I26.99 Other pulmonary embolism without acute cor pulmonale (principal); N28.89 Other specified disorders of kidney and ureter
CPT/HCPCS: 99214

== ENCOUNTER 2024-09-02 07:57 | Outpatient (AMB) | payer OTHER, SELFPAY ==
[2024-09-02 07:59] VITALS: BP 128/78; PULSE 57; RESP 16; TEMP 36.3; O2SAT 99; BMI 29.1
--- NOTE | 2024-09-02 07:59 | A.OFFPC_ITS ---
Vital Signs 09/02/24 07:59 Height 6 ft 2 in Weight 226 lb 6.4 oz BMI 29.1 BP 128/78 Blood Pressure Location Lt brachial Position Sitting Respiration 16 Pulse 57 Pulse Source Pulse Oximeter Temp 97.3 F Temp Source Oral Pulse Oximetry (%) 99 Oxygen Delivery Method Room Air Intake Visit Reasons: 3M follow up Education And Training Coordinator Required: No Accompanied by: Self / Same As Patient Allergies No Known Allergies Allergy (Verified 09/02/24 08:26) Medication List - Last Reconciled 09/02/24 by Jp Yi PA-C apixaban 5 mg PO BID 2 months Tobacco use date assessed: 09/02/24 Dental Screening Dental Screen Date: 09/02/24 Did you have a dental visit in the last 12 months?: Yes Did you have a dental problem in the last 6 months where you did not have access to dental care?: No Was dental information given to patient?: Patient has dentist HPI 3M follow up HPI Details Patient is a 63 year-old male here today for a follow-up visit PMHx : Throat cancer in s/p? chemo/ Radiation in 2018 , Report having chronic fatigue ever since? Has had low testoserone? and was placed on medication though never helped as chronic fatigue. --> Patient recently admitted to [facility] in May of 2024 for intractable back pain. He was found to have bilateral pulmonary emboli. CTA showing bilateral pulmonary emboli with moderate clot burden. Unclear etiology though did have hernia surgery 2 weeks prior. Patient also has been found to have a Bosniak 4 right renal cystic lesions suspicious for malignancy. He has followed up with Urology to have treatment on this lesion though has been placed on hold until full 3 month course of Eliquis has been done CHRONIC MEDICAL CONDITIONS--> Still continues to complain of s fatigue on exertion. He reports he is still able to run 3 miles though becomes very fatigued more than usual. We have done labs including Lyme testing and mono testing which were all negative. Does have an elevated TSH and was started on levothyroxine though felt it made no difference in stop medication. We have done cardiac stress testing including an echo stress which essentially was stable He denies any chest discomfort or shortness of breath. We done some preliminary tick-borne illness testing though was negative. .. History of throat cancer: Has followed up with ENT specialist and received a fiberoptic scope without any recurrence of malignancy noted. .. hypothyroid: Patient's TSH is still remains slightly elevated. Was on levothyroxine in the past though felt it did not help him with his energy. Recommended to restart levothyroxine to help normalize his TSH number though patient declines at this time and still considering. [facility] Medical History (Updated 09/02/24 @ 08:32 by Jp Yi PA-C) History of throat cancer Surgical History H/O hernia repair Family History Father Pancreatic cancer Mother Lung cancer Social History Household Members: Significant Other Housing: House Are you a primary patient care specialist to a significant other at home: No Do you presently have visiting nurse or other home services: No Alcohol intake: current Alcohol intake frequency: holidays/special occasions only Patient Tobacco Use Status: Never used Tobacco Tobacco use type: Cigarette e-Cigarette/Vaping Use: Never Used Second Hand Smoke Exposure: No service: Yes Current occupational status: employed 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 Current occupational exposures/hazards: No Cognitive needs: No Hearing needs: No Vision needs: Yes (Glasses) Questionnaire PHQ-9 Over the last 2 weeks, how often have you been bothered by any of the following problems? 1. Little interest or pleasure in doing things: not at all 2. Feeling down, depressed, or hopeless: not at all 3. Trouble falling or staying asleep, or sleeping too much: several days 4. Feeling tired or having little energy: nearly every day 5. Poor appetite or overeating: not at all 6. Feeling bad about yourself - or that you are a failure or have let yourself or your family down: not at all 7. Trouble concentrating on things, such as reading the newspaper or watching television: not at all 8. Moving or speaking so slowly that other people could have noticed. Or the opposite - being so fidgety or restless that you have been moving around a lot more than usual: not at all 9. Thoughts that you would be better off or of hurting yourself in some way: not at all Total score: 4 Depression Screening Interpretation: Positive Depression Screening Follow-up: Existing condition Depression Screening Done: Yes 05018 - PHQ-9 Billing: Yes Source: Developed by Drs. Steve Gutierrez, Tala Pelletier, Shaquille Christine and colleagues, with an educational shahida from [employer]. Thrive Questionnaire Date Thrive assessed: 09/02/24 I am a: Patient What is your living situation today?: I have a steady place to live Within the past 12 months, did the food you bought not last and you didn't have the money to get more?: Never true Within the past 12 months, did you worry whether your food would run out before you got money to buy more?: Never true Do you have trouble paying for medicines?: No Do you have trouble getting transportation to medical appointments?: No Do you have trouble paying your heating and electricity bill?: No Do you have trouble taking care of your child, family member or friend?: No Do you have trouble with day-to-day activities such as bathing, preparing meals, shopping, managing finances, etc.?: No Are you currently unemployed and looking for a job?: No Are you interested in more education?: No Please select the resources that you would like help with: None Currently or been in a relationship where the following occur: No concerns reported THRIVE Score: 0 AUDIT C Alcohol Use Questionnaire (AUDIT-C) 1. How often do you have a drink containing alcohol?: Monthly or less 2. How many drinks containing alcohol do you have on a typical day when you are drinking?: 1 or 2 3. How often do you have six or more drinks on one occasion?: Never Total Score: 1 Score Reviewed/Action Taken: No NEEL-7 AMB Questionnaire NEEL-7 Date NEEL - 7 assessed: 09/02/24 Feeling nervous, anxious, or on edge: 0 = Not at all Not being able to stop or control worryin = Not at all Worrying too much about different things: 0 = Not at all Trouble relaxin = Several days Being so restless that it is hard to sit still: 0 = Not at all Becoming easily annoyed or irritable: 1 = Several days Feeling afraid as if something awful might happen: 0 = Not at all Total NEEL-7 score (0-4 normal; 5-9 mild; 10-14 moderate; 15-21 severe): 2 Source: Developed by Drs. Steve Gutierrez, Tala Pelletier, Shaquille Christine and colleagues, with an educational shahida from [employer]. NEEL-7 Assessment Billing NEEL-7 Assessment Tool: NEEL-7 Assessment 15316 Review of Systems Const Denies headache(s) Eyes Denies loss of vision ENT Denies vertigo, Denies dizziness, Denies headache(s) and Denies sore throat Card Denies chest pain, Denies leg edema and Denies lightheadedness Resp Denies cough, Denies hemoptysis and Denies wheezing GI Denies abdominal pain, Denies melena, Denies constipation, Denies diarrhea and Denies vomiting Denies dysuria, Denies urinary frequency and Denies urinary urgency Musc Denies arthralgias, Denies joint swelling, Denies numbness and Denies tingling Neuro Denies Abnormal speech present, Denies behavioral changes, Denies vertigo, Denies dizziness, Denies headache(s), Denies loss of vision, Denies memory loss, Denies numbness and Denies tingling Psych Denies anxiety, Denies behavioral changes, Denies depression, Denies memory loss and Denies panic attacks Tesfaye/Lymph Denies easy bleeding and Denies easy bruising Aller/Immun Denies wheezing Physical exam (Primary Care) Vital Signs: Last Vital Signs Temp 97.3 F 09/02/24 07:59 Pulse 57 09/02/24 07:59 Resp 16 09/02/24 07:59 BP 128/78 09/02/24 07:59 Pulse Ox 99 09/02/24 07:59 Oxygen Delivery Method Room Air 09/02/24 07:59 BMI result Body Mass Index 29.1 Tobacco/Smoking Status: Tobacco use Status Tobacco use date assessed 09/02/24 09/02/24 08:06 Patient Tobacco Use Status Never used Tobacco 09/02/24 08:06 Tobacco use type Cigarette 09/02/24 08:06 e-Cigarette/Vaping Use Never Used 09/02/24 08:06 PHQ-9: PHQ-9 Score PHQ-9: Total score 4 09/02/24 08:06 Depression Screening Interpretation: Positive Depression Screening Follow-up: Existing condition Thrive Assessment: Date of Thrive Assessment Date Thrive assessed 09/02/24 09/02/24 08:06 Currently or been in a relationship where the following occur: No concerns reported Const General: healthy appearing, no acute distress, alert and awake Nutritional Appearance: well nourished Orientation/consciousness: oriented to person, oriented to place and oriented to time HENMT Ears: TM's normal bilaterally General nose exam: Normal nasal mucous membranes and turbinates present Eyes Conjunctivae: conjunctivae normal Sclerae: sclerae normal Pupils: Equal, round and reactive pupils present Neck Neck: Yes no lymphadenopathy and Yes no JVD Thyroid: Thyroid normal Carotids: no bruits Resp Effort & Inspection: normal respiratory effort and not tachypneic Auscultation: no crackles, no rales, no rhonchi and no wheezes Cardio Rate: regular rate Rhythm: regular rhythm Heart sounds: no murmurs and normal S1 and S2 GI Palpation (GI): Soft to palpation, nontender, no hepatomegaly and no splenomegaly Auscultation: normal bowel sounds Skin General skin exam: no rashes or lesions noted and dry skin Neuro General: oriented to person, oriented to place and oriented to time Cranial nerves: Yes Equal, round and reactive pupils present Speech: No Abnormal speech present Gait exam (Neuro): Normal gait present Motor exam (neuro): no tremor noted Extrem Right upper extremity: full ROM Left upper extremity: full ROM Right lower extremity: full ROM; no edema Left lower extremity: full ROM; no edema Psych Mental Status: mental status grossly normal Speech and movement: Normal speech and movement present Affect: normal affect Attitude: cooperative Thought process: Normal thought process present Coding Level of Care Code Est Pt Level 4 (47350) Diagnoses Acute pulmonary embolism, unspecified pulmonary embolism type, unspecified whether acute cor pulmonale present I26.99 Acute cor pulmonale presence: unspecified Chronicity: acute Pulmonary embolism type: unspecified Elevated TSH R79.89 Mixed hyperlipidemia E78.2 Hyperlipidemia type: mixed hyperlipidemia Chronic fatigue syndrome G93.32 Skin lesion of left arm L98.9 Acquired complex renal cyst N28.1 Additional Codes NEEL-7 Assessment Billing - NEEL-7 Assessment Tool: NEEL-7 Assessment 90703 ([id number]) PHQ-9 - 29318 - PHQ-9 Billing: Yes ([id number]) Assessment & Plan Assessment & Plan (1) Pulmonary embolism: Code(s): I26.99 - Other pulmonary embolism without acute cor pulmonale Category: Medical Qualifiers: Acute cor pulmonale presence: unspecified Chronicity: acute Pulmonary embolism type: unspecified Qualified Code(s): I26.99 - Other pulmonary embolism without acute cor pulmonale Plan: Recently suffered bilateral pulmonary embolisms 2 weeks after his hernia surgery. He believes his pulmonary embolisms for direct effect of recent surgery. He has been on Eliquis nearly 3 months now and is due to finish up mid August. He is due for cryotherapy on his renal mass (2) Elevated TSH: Code(s): R79.89 - Other specified abnormal findings of blood chemistry Category: Medical Plan: As per HPI P, patient does hypothyroidism evidenced by elevated TSH. Has been on levothyroxine in the past though never felt any different. Of note well on levothyroxine at did stabilize his TSH numbers though again did not feel much different from a clinical standpoint. (3) HLD (hyperlipidemia): Code(s): E78.5 - Hyperlipidemia, unspecified Category: Medical Qualifiers: Hyperlipidemia type: mixed hyperlipidemia Qualified Code(s): E78.2 - Mixed hyperlipidemia Plan: Patient's most recent lipid panel showing high cholesterol 240. Will continue to work on lifestyle and dietary modifications. (4) Chronic fatigue syndrome: Code(s): G93.32 - Myalgic encephalomyelitis/chronic fatigue syndrome Category: Medical Plan: As per HPI patient has had several years chronic fatigue particularly on physical exertion. He reports he is not able to be as physically as he once was due to his continued fatigue. He reports he sleeps well at night and gets 7-8 hours of restless sleep at night though never feels completely rested when he wakes up. WONDERING IF HIS CHRONIC FATIGUE IS RELATED TO HIS RENAL MASS. We did discuss possibly doing a home sleep study to see if he has a obstructive sleep apnea though has not been told he had any apneic episodes or excessive snoring at night by his . We have done extensive workup including testosterone testing, lab testing, stress echo and tick-borne illness testing though has been unrevealing. He will reach out to tick-borne illness specialist in [place] ( Dr rojas) (5) Skin lesion of left arm: Code(s): L98.9 - Disorder of the skin and subcutaneous tissue, unspecified Category: Medical Plan: PATIENT HAS SKIN LESIONS OVER HIS ARMS HE WOULD LIKE EVALUATION FROM DERMATOLOGY. 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 DOES HAVE RISK FACTORS FOR SKIN MALIGNANCIES (6) Acquired complex renal cyst: Code(s): N28.1 - Cyst of kidney, acquired Category: Medical Plan: Was found to have a renal mass incidentally on abdominal imaging. He is finishing up three-month anticoagulation treatment for his pulmonary embolism that is seem to be provoked. He will call the endovascular specialist for scheduling appointment to have cryotherapy done. Orders: Orders Lipid Panel Today E78.2 - Mixed hyperlipidemia Comprehensive [place]. Panel Fast Today E78.2 - Mixed hyperlipidemia Complete Blood Count no Diff Today E78.2 - Mixed hyperlipidemia TSH reflex Free T4 Today R79.89 - Other specified abnormal findings of blood chemistry Referrals Dermatology Referral L98.9 - Disorder of the skin and subcutaneous tissue, unspecified
== END 2024-09-02 08:40 | disposition home or self-care (01) ==
LOC: HO.HMCH 07:58
PROVIDERS: PCP Physician Assistant; Visit Provider Physician Assistant
DX: I26.99 Other pulmonary embolism without acute cor pulmonale (principal); R79.89 Other specified abnormal findings of blood chemistry; E78.2 Mixed hyperlipidemia; G93.32 Myalgic encephalomyelitis/chronic fatigue syndrome; L98.9 Disorder of the skin and subcutaneous tissue, unspecified; N28.1 Cyst of kidney, acquired

== ENCOUNTER → 2024-09-02 07:57 | Outpatient (BNVA) | payer OTHER, SELFPAY | PROVIDERS: PCP Physician Assistant; Visit Provider Physician Assistant | DX: E78.2 Mixed hyperlipidemia (principal); E03.9 Hypothyroidism, unspecified; I26.99 Other pulmonary embolism without acute cor pulmonale; R79.89 Other specified abnormal findings of blood chemistry; G93.32 Myalgic encephalomyelitis/chronic fatigue syndrome; L98.9 Disorder of the skin and subcutaneous tissue, unspecified; N28.1 Cyst of kidney, acquired; Z79.01 Long term (current) use of anticoagulants | CPT/HCPCS: 96127 ==

== ENCOUNTER → 2024-10-22 11:13 | Day surgery (SDC) | payer OTHER, SELFPAY ==
[2024-10-15 09:18] VITALS: BMI 29.5
== END ==
LOC: HO.SSS 11:15
PROVIDERS: PCP Physician Assistant; Visit Provider Student in an Organized Health Care Education/Training Program
DX: N28.89 Other specified disorders of kidney and ureter (principal); Z53.8 Procedure and treatment not carried out for other reasons

== ENCOUNTER 2024-11-11 11:52 | Day surgery (SDC) | payer OTHER, SELFPAY ==
[2024-11-04 08:34] VITALS: BMI 29.5
--- NOTE | 2024-11-10 09:28 | P.CONAN_ITS ---
Documented by User: Devora Miles NP 11/10/24 09:30 HPI - Anesthesia Eval Consult details Narrative: 63yo M for Right Kidney Cryo-Ablation Hold 4 Hrs (MICROWAVE) s/p inguinal hernia repair 05/2024 with GA-LMA 5 PE 05/2024 with 3 month course of Eliquis - last taken 09/2024 Hx throat ca s/p radiation and chemo 2017 - follows [facility] Active Problems Active Problems: All Active Problems Skin lesion of left arm (Acute) Renal mass of unknown nature (Acute) Acquired complex renal cyst (Acute) Pulmonary embolism (Acute) Status post inguinal hernia repair using synthetic patch (Acute) Left groin hernia (Acute) Right kidney mass (Acute) Skin lesion (Acute) Umbilical hernia (Acute) Chronic fatigue syndrome (Acute) Colon cancer screening declined (Acute) HLD (hyperlipidemia) (Acute) Elevated blood pressure reading (Acute) Abnormal stress electrocardiogram test (Acute) Tick bite (Acute) Annual physical exam (Acute) Stress at work (Acute) Colon cancer screening (Acute) GERD (gastroesophageal reflux disease) (Acute) Chronic fatigue (Acute) Screening for hypercholesterolemia (Acute) Screening for diabetes mellitus (DM) (Acute) Elevated TSH (Acute) Low testosterone (Acute) Past Medical History Medical History Hypothyroid GERD (gastroesophageal reflux disease) HLD (hyperlipidemia) Pulmonary embolism Renal mass History of throat cancer Family History Family History Father Pancreatic cancer Mother Lung cancer Surgical History Surgical History H/O hernia repair History of Problems with Anesthesia: No Social History Social History Household Members: Significant Other Housing: House Are you a primary memory care program resident to a significant other at home: No Do you presently have visiting nurse or other home services: No Alcohol intake: current Alcohol intake frequency: holidays/special occasions only Patient Tobacco Use Status: Never used Tobacco e-Cigarette/Vaping Use: Never Used Second Hand Smoke Exposure: No Use of substances other than those prescribed or required for medical reasons: No Have you been hit, kicked, punched, or otherwise hurt by someone within the past year? If so, by whom?: No Spiritual Healthcare Practices: no Religion Healthcare Practices: no Cultural Healthcare Practices: no Are you DNR?: No Advance Directives: No (states SO is primary contact) Advance Directives on File: No Poor oral hygiene: No service: Yes Current occupational status: employed Current occupation: [employer]. Current occupational exposures/hazards: No Cognitive needs: No Hearing needs: No Vision needs: Yes (Glasses) Meds Allergies Allergy/AdvReac Type Severity Reaction Status Date / Time No Known Allergies Allergy Verified 09/02/24 08:26 Home Medications ?Medication ?Instructions ?Recorded ?Confirmed ?Last Taken ?Type No Known Home Meds 10/15/24 11/04/24 Un known History Exam Height,Weight and Vital Signs: Height 6 ft 2 in Weight 104.326 kg Narrative Narrative: ECHO 05/2024 Conclusions: - The left ventricular systolic function is hyperdynamic. The calculated ejection fraction is 70% by biplane method. - Mildly increased right ventricular cavity size. - No obvious valvular pathology seen on this study. EKG 05/2024 Vent. Rate : 80 BPM Atrial Rate : 80 BPM P-R Int : 162 ms QRS Dur : 80 ms QT Int : 358 ms P-R-T Axes : 49 48 19 degrees QTcB Int : 412 ms Normal sinus rhythm Nonspecific T wave abnormality Abnormal ECG No previous ECGs available Assessment and Plan Assessment Anesthesia Assessment: Chart Reviewed Final Anesthetic Review History of Problems with Anesthesia: No Documented by User: Yoli Parra MD 11/11/24 12:39 PMFSH Past Medical History Medical History Hypothyroid GERD (gastroesophageal reflux disease) HLD (hyperlipidemia) Pulmonary embolism Renal mass History of throat cancer Family History Family History Father Pancreatic cancer Mother Lung cancer Family history of problems with anesthesia: No Surgical History Surgical History H/O hernia repair Social History Social History Household Members: Significant Other Housing: House Are you a primary memory care program resident to a significant other at home: No Do you presently have visiting nurse or other home services: No Alcohol intake: current Alcohol intake frequency: holidays/special occasions only Patient Tobacco Use Status: Never used Tobacco e-Cigarette/Vaping Use: Never Used Second Hand Smoke Exposure: No Use of substances other than those prescribed or required for medical reasons: No Have you been hit, kicked, punched, or otherwise hurt by someone within the past year? If so, by whom?: No Spiritual Healthcare Practices: no Religion Healthcare Practices: no Cultural Healthcare Practices: no Are you DNR?: No Advance Directives: No (states SO is primary contact) Advance Directives on File: No Poor oral hygiene: No service: Yes Current occupational status: employed Current occupation: [employer]. Current occupational exposures/hazards: No Cognitive needs: No Hearing needs: No Vision needs: Yes (Glasses) Meds Allergies Allergy/AdvReac Type Severity Reaction Status Date / Time No Known Allergies Allergy Verified 09/02/24 08:26 Home Medications ?Medication ?Instructions ?Recorded ?Confirmed ?Last Taken ?Type No Known Home Meds 10/15/24 11/04/24 Un known History Exam Airway Mallampati Class: IV (throat ca , s/p radio and chemo) Neck ROM: Limited Heart: rrr Lungs: cta Assessment and Plan Assessment Anesthesia Assessment: Anesthesia Plan Discussed Final Anesthetic Review Family History of Problems with Anesthesia: No NPO: Yes ASA Class: III Final Preanesthetic Review: No Changes in Pt Med Stat, Meds/Allgs Chart Revi ewed, Consent Obtained/Reviewed and Anes Risks/Benef Reviewed Patient Risk: Intermediate Procedure Risk: Low Anesthetic Plan Anesthetic Plan: MAC: and Agree w/ Assess. and Plan Disposition: Standard PACU
[2024-11-11] VITALS (14 sets, daily range): BP systolic 132–171; BP diastolic 79–103; PULSE 61–95; RESP 12–20; TEMP 36.1–36.5; O2SAT 95–100; BMI 27.7
--- NOTE | ~2024-11-11 | CT_ITS ---
CT-guided percutaneous ablation of right renal tumor PROCEDURES: 1. Limited preprocedure CT of the abdomen. Permanent images saved in PACS. 2. CT-guided microwave ablation of right renal mass 3. Limited postprocedure CT of the abdomen. Permanent images saved in PACS. MEDICATIONS: -Antibiotics: Ancef -For additional medication/sedation details, please see nursing/anesthesia flowsheet. COMPLICATIONS: None ESTIMATED BLOOD LOSS: < 5 ml CONTRAST: None SPECIMENS: None SEDATION: GENERAL ANESTHESIA PROCEDURE NOTE: The procedure, risks, benefits, and alternatives were carefully explained to the patient and written informed consent was obtained. The patient was placed right oblique on the CT table. A timeout was performed. A limited CT of the abdomen was performed to localize the right kidney mass and choose appropriate needle entry and trajectory. The patient was prepped and draped in usual sterile fashion. The skin and deeper soft tissues were anesthetized with lidocaine. Under CT guidance, a [employer] microwave ablation probe was used to access the tumor. Once in position, we considered obtaining a biopsy. However, we determined that based on the size/location of the tumor, performing a biopsy would risk displacing our ablation probe and we therefore elected to not obtain the biopsy. We then performed the ablation utilizing 100 W for [address] fluoroscopic images obtained. At completion of the ablation, the probe was removed. A dry dressing was applied and secured with Tegaderm. Post ablation CT do not demonstrate any evidence of bleeding or other complication. The patient was stable after the procedure and was transferred to the post anesthesia care unit. CT/CT Guided RF Ablation Renal Impression: CT-guided percutaneous microwave ablation of right renal mass as detailed above Electronically signed by: Freddy Garcia MD 11/11/2024 04:22 PM EDT
[2024-11-11 12:47] LABS: MANUAL DIFF FLAG NO
[2024-11-11 12:56] LABS: Hematocrit 53.0 % (42.0-52.0); Hemoglobin 17.9 g/dl (14.0-18.0); Imm Gran Abs Auto 0.02 X10*3/uL (0.00-0.03); Imm Gran Pct Auto 0.3 % (0.0-0.4); Lymphocytes Absolute Auto 1.5 X10*3/uL (1.2-4.9); Mean Corpuscular HGB Conc 33.8 g/dl (31.0-36.0); Mean Corpuscular Hemoglobin 29.5 pg (27.0-33.0); Mean Corpuscular Volume 87.3 fL (80.0-98.0); NRBC Abs Auto 0.000 X10*3/uL (0.0-0.012); NRBC Pct Auto 0.0 /100WBC (0.0-0.2); Platelet Count 204 X10*3/uL (160-400); Red Blood Count 6.07 X10*6/uL (4.60-5.80); White Blood Count 7.6 X10*3/uL (4.8-10.8)
[2024-11-11 13:02] LABS: INTERNATIONAL NORM RATIO 0.9 (0.9-1.1); Prothrombin Time 10.7 SEC (10.9-12.4)
[2024-11-11 13:05] LABS: Partial Thromboplastin Time 33.6 SEC (26.7-34.1)
[2024-11-11 13:17] LABS: Anion Gap 15 (12-20); Blood Urea Nitrogen 26 mg/dL (9-16); Calcium 10.1 mg/dL (8.4-10.2); Carbon Dioxide 24 mmol/L (22-29); Chloride 106 mmol/L (96-108); Creatinine Clr Calc Pharmacy 71.2; Estimated Glomerular Filt Rate 59; Potassium 4.4 mmol/L (3.3-5.1); Sodium 141 mmol/L (135-145)
[2024-11-11] MEDS: Lactated Ringers 1,000 ML 100 ML IVCONT (13:33)
--- NOTE | 2024-11-11 13:46 | PC.NURSE ---
attempted two iv insertions. no results
== END 2024-11-11 18:32 | disposition home or self-care (01) ==
PROVIDERS: Radiology Diagnostic Radiology; PCP Physician Assistant; Visit Provider Student in an Organized Health Care Education/Training Program
DX: N28.89 Other specified disorders of kidney and ureter (principal); N28.1 Cyst of kidney, acquired; I26.99 Other pulmonary embolism without acute cor pulmonale; Z85.819 Personal history of malignant neoplasm of unspecified site of lip, oral cavity, and pharynx; R79.89 Other specified abnormal findings of blood chemistry; E78.2 Mixed hyperlipidemia; G93.32 Myalgic encephalomyelitis/chronic fatigue syndrome; L98.9 Disorder of the skin and subcutaneous tissue, unspecified; Z79.01 Long term (current) use of anticoagulants
CPT/HCPCS: 36415; 50592; 77013; 80048; 85025; 85610; 85730; 86850; 86900; 86901; J0330; J0690; J2003; J2250; J2405; J2704; J3010

== ENCOUNTER → 2024-11-11 14:03 | Outpatient (BNV) | payer OTHER, SELFPAY | PROVIDERS: PCP Physician Assistant; Visit Provider Student in an Organized Health Care Education/Training Program | DX: N28.89 Other specified disorders of kidney and ureter (principal) | CPT/HCPCS: 50592; 77013 ==

== ENCOUNTER 2024-12-11 11:07 | Outpatient (AMB) | payer OTHER, SELFPAY ==
--- NOTE | 2024-12-11 11:22 | MHC.OFFVIS ---
Intake Visit Reasons: Microwave ablation follow up Intake Note: Patient is present for s/p CT-guided microwave ablation of right renal mass 11/11/24 Urology Medication:NONE Antibiotic Allergy:NONE Blood Thinner:NONE Stripper Soft Plastic Required: No Allergies No Known Allergies Allergy (Verified 12/11/24 11:22) HPI Comments Details: 12/11/24--11/11/24--Andre is a 63-year-old male status post renal mass cryoablation on 11/11/2024 by Interventional Radiology. I have reviewed procedure note. History of Present Illness The patient is a 63-year-old male presenting for follow-up after renal mass cryoablation. The patient underwent cryoablation of a renal mass on 11/11/24, performed by interventional radiology. The procedure note indicated a good response to the ablation, a biopsy was not performed due to positioning concerns. Post-procedure, the patient reported no hematuria or significant pain, even at the incision site. An MRI is planned in six months to reassess the treated area. Plan 1. Renal Mass Status Post Cryoablation - Schedule MRI in six months to evaluate the treated area. 07/21/24--Discussed MRI results Bosniac IV renal cystic lesion suspicious for malignancy, recommend cryoablation therapy. Telehealth appointment video connection started but patient was not able to hear me well, changed to landline. Reviewed imaging results. MRI Abd-07/16/24--2.0 x 1.1 x 1.4 cm Bosniak IV lesion at the posterior aspect of the upper pole of the right kidney as described, with a high probability of malignancy. 06/11/24--Andre is a 63 year old male here for a new patient evaluation for renal lesion. He denies gross hematuria, denies irritative voiding symptoms. Ultrasound findings discussed: 1.5 cm Complex septated exophytic cystic lesion, right kidney. Recommend dedicated IV contrast enhanced CT versus MRI for further imaging characterization. [facility] Medical History Hypothyroid GERD (gastroesophageal reflux disease) HLD (hyperlipidemia) Pulmonary embolism Renal mass History of throat cancer Surgical History H/O hernia repair Family History Father Pancreatic cancer Mother Lung cancer Social History Household Members: Significant Other Housing: House Are you a primary home care manager to a significant other at home: No Do you presently have visiting nurse or other home services: No Alcohol intake: current Alcohol intake frequency: holidays/special occasions only Patient Tobacco Use Status: Never used Tobacco e-Cigarette/Vaping Use: Never Used Second Hand Smoke Exposure: No service: Yes Current occupational status: employed 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 Current occupational exposures/hazards: No Cognitive needs: No Hearing needs: No Vision needs: Yes (Glasses) Review of Systems Const All systems reviewed & are unremarkable except as noted in HPI and below Reports no additional complaints Eyes Reports no additional complaints ENT Reports no additional complaints Card Reports no additional complaints Resp Reports no additional complaints GI Reports no additional complaints Reports as per HPI Musc Reports no additional complaints Skin/Breast Reports system reviewed and no additional complaints, except as documented Neuro Reports no additional complaints Psych Reports no additional complaints Endo Reports no additional complaints Tesfaye/Lymph Reports no additional complaints Aller/Immun Reports no additional complaints Results Reviewed Results Reviewed: Date of Service: 11/11/24 CT-guided percutaneous ablation of right renal tumor PROCEDURES: 1. Limited preprocedure CT of the abdomen. Permanent images saved in PACS. 2. CT-guided microwave ablation of right renal mass 3. Limited postprocedure CT of the abdomen. Permanent images saved in PACS. MEDICATIONS: -Antibiotics: Ancef -For additional medication/sedation details, please see nursing/anesthesia flowsheet. COMPLICATIONS: None ESTIMATED BLOOD LOSS: < 5 ml CONTRAST: None SPECIMENS: None SEDATION: GENERAL ANESTHESIA PROCEDURE NOTE: The procedure, risks, benefits, and alternatives were carefully explained to the patient and written informed consent was obtained. The patient was placed right oblique on the CT table. A timeout was performed. A limited CT of the abdomen was performed to localize the right kidney mass and choose appropriate needle entry and trajectory. The patient was prepped and draped in usual sterile fashion. The skin and deeper soft tissues were anesthetized with lidocaine. Under CT guidance, a [employer] microwave ablation probe was used to access the tumor. Once in position, we considered obtaining a biopsy. However, we determined that based on the size/location of the tumor, performing a biopsy would risk displacing our ablation probe and we therefore elected to not obtain the biopsy. We then performed the ablation utilizing 100 W for [address] fluoroscopic images obtained. At completion of the ablation, the probe was removed. A dry dressing was applied and secured with Tegaderm. Post ablation CT do not demonstrate any evidence of bleeding or other complication. The patient was stable after the procedure and was transferred to the post anesthesia care unit. Impression: CT-guided percutaneous microwave ablation of right renal mass as detailed above Date of Service: 07/16/24 EXAMINATION: MRI Abdomen without and with contrast HISTORY: N28.89 - RIGHT KIDNEY MASS COMPARISON: Correlation is made with abdominal CT scan dated 06/12/2024 and 04/28/2024, and a renal ultrasound dated 05/07/2024. TECHNIQUE: Axial in and out of phase T1-weighted gradient echo, axial diffusion weighted, and axial and coronal HASTE T2 with fat saturation images were obtained through the abdomen. Subsequently, fat suppressed axial and coronal T1-weighted images were obtained after the intravenous administration of 10 mL Gadavist. FINDINGS: There is a 2.0 x 1.1 x 1.4 cm mass at the posterior aspect of the upper pole of the right kidney corresponding to the abnormality noted on ultrasound and CT. The mass demonstrates overall decreased T2 signal intensity, a small cystic component, and a 1.3 cm enhancing nodule. This represents a Bosniak IV lesion. There is a 1.2 cm cyst at the upper pole of the right kidney. The left kidney demonstrates a 2.3 cm cyst at the medial aspect of the interpolar region and a 7.1 cm cyst at the lower pole. There is no hydronephrosis. The renal arteries and veins are patent. There is no significant loss of signal intensity within the liver on opposed phase imaging to suggest steatosis. There are 2 cysts in the left lobe of the liver measuring 2.1 and 2.4 cm in diameter. A smaller cyst is noted in the inferior aspect of the right hepatic lobe. There is no enhancing liver mass. The hepatic and portal veins are patent. There is no intra or extrahepatic biliary ductal dilatation. The gallbladder is unremarkable. The spleen, pancreas, and adrenals are unremarkable. No retroperitoneal lymphadenopathy or ascites is identified. The visualized bones demonstrate normal marrow signal intensity. Incidental note is made of airspace opacity at the left lung base, suspicious for pneumonia. IMPRESSION: 1. 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 Other findings as above. Date of Service: 05/07/24 US RETROPERITONEAL LIMITED, RIGHT (RENAL ONLY) CLINICAL INFORMATION: Disorder of the kidney and ureter.. COMPARISON: Correlated to CT dated April 28, 2024. TECHNIQUE: Real-time ultrasound of the right kidney using grayscale and color Doppler technique. FINDINGS: RIGHT KIDNEY: 12 x 7 x 7 cm. Normal echotexture. Normal renal cortical thickness. No hydronephrosis. There is a 1.5 cm, exophytic, lobulated and septated anechoic lesion centered in the posterior upper pole/midportion junction. No flow on color Doppler interrogation. IMPRESSION: Complex septated exophytic cystic lesion, right kidney. Recommend dedicated IV contrast enhanced CT versus MRI for further imaging characterization. No hydronephrosis.. Date: 04/28/24--CLINICAL HISTORY: K42.9 - Umbilical hernia without obstruction or gangrene CT abdomen and pelvis with contrast Comparison: None Findings: No consolidation or effusion. Benign-appearing cysts within the left hepatic lobe measuring up to 2.3 cm. The gallbladder and biliary tree, spleen, pancreas and adrenal glands are unremarkable. Bilateral benign-appearing renal cysts, the largest measuring 7.3 cm arising from the left lower pole. Punctate nonobstructing stone in the mid right kidney. Indeterminate lesion arises exophytically from the posterior aspect of the right kidney measuring 1.9 cm on image 27 of series 3. No bowel obstruction, pneumoperitoneum, or pneumatosis. There is a fat-containing inguinal hernia that also contains a small portion of sigmoid colon. No inflammatory change. Bladder and prostate are unremarkable. Normal appendix. No adenopathy or fluid collections. Patent vasculature. No acute fracture. IMPRESSION: 1. Left inguinal hernia containing fat and small amount of sigmoid colon. No inflammation or obstruction. 2. Indeterminate exophytic mass arising from the posterior aspect of the right kidney. Recommend further characterization with MRI abdomen with and without contrast. At a minimum follow-up ultrasound is recommended. 3. Benign-appearing hepatic and renal cysts. Assessment & Plan Assessment & Plan (1) Renal mass: Code(s): N28.89 - Other specified disorders of kidney and ureter Category: Medical Plan MR abdomen wo/w con 6 Months s/p cryoablation Orders: Orders MR abdomen wo/w con 6 Months N28.89 - Other specified disorders of kidney and ureter Patient Instructions: The patient had an opportunity to ask questions regarding treatment plan. The patient expressed understanding and agreement with the above treatment plan. The patient is aware they should contact our office by phone for worsening of their current condition or the appearance of new symptoms. Compliance is encouraged with any medications and followup testing that is ordered. It is a privilege to be allowed the opportunity to participate in the urologic care of your patient. If you have any questions or concerns regarding treatment for the above conditions please do not hesitate to contact me. The office telephone contact is [phone]. This note is constructed in part using voice recognition software. While every effort has been made to ensure accuracy roofer errors may have been included. Yours sincerely, Kelley Ha MD Scribe Plan - Not visible on output: Patient was informed and verbally consented to the use of an ambient scribe for clinic note documentation during this visit. Coding Level of Care Code Est Pt Level 3 (16532) Diagnoses Renal mass N28.89
== END 2024-12-11 11:50 | disposition home or self-care (01) ==
LOC: HO.HUSH 11:08
PROVIDERS: PCP Physician Assistant; Visit Provider Urology
DX: N28.89 Other specified disorders of kidney and ureter (principal)
CPT/HCPCS: 99213

== ENCOUNTER 2025-01-11 08:18 | Outpatient (AMB) | payer OTHER, SELFPAY ==
[2025-01-11 08:21] VITALS: BP 122/62; PULSE 71; RESP 18; TEMP 36.3; O2SAT 96; BMI 28.2
--- NOTE | 2025-01-11 08:21 | MHC.PC.OV ---
Vital Signs 01/11/25 08:21 Height 6 ft 2 in Weight 219 lb 8 oz BMI 28.2 BP 122/62 Blood Pressure Location Lt brachial Position Sitting Respiration 18 Pulse 71 Pulse Source Pulse Oximeter Temp 97.3 F Temp Source Temporal Artery Scan Pulse Oximetry (%) 96 Oxygen Delivery Method Room Air Intake Visit Reasons: [facility] 12/20/24 Automotive Consultant Required: No Accompanied by: Self / Same As Patient Allergies No Known Allergies Allergy (Verified 01/11/25 08:22) Tobacco use date assessed: 01/11/25 Dental Screening Dental Screen Date: 01/11/25 Did you have a dental visit in the last 12 months?: Yes Did you have a dental problem in the last 6 months where you did not have access to dental care?: No Was dental information given to patient?: Patient has dentist HPI HPI Comments History of Present Illness Details The patient is a 64-year-old male presenting with follow-up for Transient Ischemic Attack (TIA) and management of cardiovascular risk factors. The patient experienced a TIA 12/20, characterized by speech difficulties and inability to articulate words properly, which resolved within a short period. Following the TIA, the patient was prescribed Plavix and aspirin for antiplatelet therapy, with Plavix intended for a short duration of three weeks (already completed). The patient has a history of hypertension, with previous readings showing mildly elevated blood pressure at 144 mmHg systolic. Recent lifestyle modifications, including dietary changes and increased physical activity, have resulted in improved blood pressure readings, with a recent measurement of 122/62 mmHg. The patient also has hyperlipidemia, managed with atorvastatin, and has been advised to continue this medication due to the history of TIA. The patient is motivated to manage hyperlipidemia through diet and exercise, aiming to reduce medication dependency. The patient has a history of pulmonary embolism following hernia surgery, which occurred several months prior to the TIA. The patient reports a history of gastrointestinal issues, expressing concern about potential side effects of aspirin on the stomach. He has not experienced recent gastrointestinal symptoms but remains cautious about medication-induced gastric irritation. PENDING SALE TO [facility] Medical History Hypothyroid GERD (gastroesophageal reflux disease) HLD (hyperlipidemia) Pulmonary embolism Renal mass History of throat cancer Surgical History H/O hernia repair Family History Father Pancreatic cancer Mother Lung cancer Social History Household Members: Significant Other Housing: House Are you a primary progressive care manager to a significant other at home: No Do you presently have visiting nurse or other home services: No Alcohol intake: current Alcohol intake frequency: holidays/special occasions only Patient Tobacco Use Status: Never used Tobacco e-Cigarette/Vaping Use: Never Used Second Hand Smoke Exposure: No service: Yes Current occupational status: employed 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 Current occupational exposures/hazards: No Cognitive needs: No Hearing needs: No Vision needs: Yes (Glasses) Questionnaire Thrive Questionnaire Date Thrive assessed: 09/02/24 I am a: Patient What is your living situation today?: I have a steady place to live Within the past 12 months, did the food you bought not last and you didn't have the money to get more?: Never true Within the past 12 months, did you worry whether your food would run out before you got money to buy more?: Never true Do you have trouble paying for medicines?: No Do you have trouble getting transportation to medical appointments?: No Do you have trouble paying your heating and electricity bill?: No Do you have trouble taking care of your child, family member or friend?: No Do you have trouble with day-to-day activities such as bathing, preparing meals, shopping, managing finances, etc.?: No Are you currently unemployed and looking for a job?: No Are you interested in more education?: No Please select the resources that you would like help with: None Currently or been in a relationship where the following occur: No concerns reported THRIVE Score: 0 NEEL-7 AMB Questionnaire NEEL-7 Date NEEL - 7 assessed: 09/02/24 Source: Developed by Drs. Steve Gutierrez, Tala Pelletier, Shaquille Christine and colleagues, with an educational shahida from [employer]. Review of Systems Const Details: Positives besides what was mentioned in HPI are in BOLD Constitutional: No Weight Change, No Fever, No Chills, No Night Sweats, No Fatigue, No Malaise ENT/Mouth: No Hearing Changes, No Ear Pain, No Nasal Congestion, No Sinus Pain, No Hoarseness, No sore throat, No Rhinorrhea, No Swallowing Difficulty Eyes: No Eye Pain, No Swelling, No Redness, No Foreign Body, No Discharge, No Vision Changes Cardiovascular: No Chest Pain, No SOB, No PND, No Dyspnea on Exertion, No Orthopnea, No Claudication, No Edema, No Palpitations Respiratory: No Cough, No Sputum, No Wheezing, No Smoke Exposure, No Dyspnea Gastrointestinal: No Nausea, No Vomiting, No Diarrhea, No Constipation, No Pain, No Heartburn, No Anorexia, No Dysphagia, No Hematochezia, No Melena, No Flatulence, No Jaundice Genitourinary: No Dysmenorrhea, No DUB, No Dyspareunia, No Dysuria, No Urinary Frequency, No Hematuria, No Urinary Incontinence, No Urgency, No Flank Pain, No Urinary Flow Changes, No Hesitancy Musculoskeletal: No Arthralgias, No Myalgias, No Joint Swelling, No Joint Stiffness, No Back Pain, No Neck Pain, No Injury History Skin: No Skin Lesions, No Pruritis, No Hair Changes, No Breast/Skin Changes, No Nipple Discharge Neuro: No Weakness, No Numbness, No Paresthesias, No Loss of Consciousness, No Syncope, No Dizziness, No Headache, No Coordination Changes, No Recent Falls Psych: No Anxiety/Panic, No Depression, No Insomnia, No Personality Changes, No Delusions, No Rumination, No SI/HI/AH/VH, No Social Issues, No Memory Changes, No Violence/Abuse Hx., No Eating Concerns Heme/Lymph: No Bruising, No Bleeding, No Transfusions History, No Lymphadenopathy Endocrine: No Polyuria, No Polydipsia, No Temperature Intolerance Physical exam (Primary Care) Vital Signs: Last Vital Signs Temp 97.3 F 01/11/25 08:21 Pulse 71 01/11/25 08:21 Resp 18 01/11/25 08:21 BP 122/62 01/11/25 08:21 Pulse Ox 96 01/11/25 08:21 Oxygen Delivery Method Room Air 01/11/25 08:21 BMI result Body Mass Index 28.2 Tobacco/Smoking Status: Tobacco use Status Tobacco use date assessed 01/11/25 01/11/25 08:23 Patient Tobacco Use Status Never used Tobacco 01/11/25 08:23 Tobacco use type 10/15/24 09:18 e-Cigarette/Vaping Use Never Used 01/11/25 08:23 Thrive Assessment: Date of Thrive Assessment Date Thrive assessed 09/02/24 01/11/25 08:23 Currently or been in a relationship where the following occur: No concerns reported Const Other: Pertinent findings are in BOLD GENERAL APPEARANCE NAD, activity normal for age, well developed/ well nourished, no cyanosis, pallor, or diaphoresis. EYES lids/conjunctiva normal. EARS/NOSE/THROAT Mucous membranes moist, nares normal, lips/teeth normal uvula midline without oral pharyngeal erythema, exudate or swelling TMs normal bilaterally. No lymphangitis/lymphedema. HEAD/NECK normocephalic atraumatic, no facial trauma, neck is supple. RESPIRATORY respiratory effort normal, speaks in full sentences, no tripod position, no accessory muscle use. Lungs clear to auscultation without rhonchi, wheezes, rales CARDIAC Regular rate and rhythm, no edema. ABDOMINAL Soft, ND/NT. No evidence of fluid wave. No pulsatile masses on exam, rebound tenderness, Rapp sign or pain over Mcburney's point. MUSCLES/EXTREMITIES No abnormal range of motion, no swelling. SKIN Warm, pink and dry. No rashes, dermatoses, petechiae or lesions. NEUROLOGICAL Speech is clear and appropriate. Normal level of consciousness. Gait and coordination are normal. 5/5 strength in all extremities. PSYCH Normal mood and affect. Judgement/competence is appropriate Coding Level of Care Code Est Pt Level 4 (28579) Diagnoses TIA (transient ischemic attack) G45.9 Elevated blood pressure reading R03.0 Assessment & Plan Assessment & Plan (1) TIA (transient ischemic attack): Code(s): G45.9 - Transient cerebral ischemic attack, unspecified Category: Medical Plan: - Continue aspirin therapy as a preventative measure. - Continue Atorvastatin 40 mg. - Discontinue Plavix as it is no longer required. - Emphasize lifestyle modifications including diet and exercise to reduce risk of recurrence. (2) Elevated blood pressure reading: Code(s): R03.0 - Elevated blood-pressure reading, without diagnosis of hypertension Category: Medical Plan: - Monitor blood pressure regularly to assess control without medication. - Encourage continued dietary modifications and physical activity. Plan During the visit, we discussed the importance of continuing aspirin therapy as a preventative measure following the TIA, while discontinuing Plavix as it is no longer necessary. We emphasized the role of lifestyle modifications, including diet and exercise, in managing cardiovascular risk factors and reducing the likelihood of recurrence. The patient was advised to monitor blood pressure regularly and to continue atorvastatin therapy for hyperlipidemia management. We also addressed concerns regarding gastrointestinal side effects of aspirin, advising the patient to be vigilant for symptoms and consider alternative therapies if necessary. The patient was encouraged to maintain dietary changes and physical activity to support overall health and reduce medication dependency. Medications: New atorvastatin (Lipitor) 40 mg (1/2 x 80 mg) PO DAILY 90 tabs 3RF Discontinued clopidogrel Discontinued Reason: No Longer Medically Relevant 75 mg PO DAILY 90 days 90 tabs 1RF I63.9 - Cerebral infarction, unspecified
== END 2025-01-11 08:53 | disposition home or self-care (01) ==
LOC: HO.HMCH 08:19
PROVIDERS: PCP Physician Assistant; Visit Provider Internal Medicine
DX: G45.9 Transient cerebral ischemic attack, unspecified (principal); R03.0 Elevated blood-pressure reading, without diagnosis of hypertension

== ENCOUNTER 2025-02-08 08:52 | Outpatient (REF) | payer OTHER, SELFPAY ==
--- NOTE | ~2025-02-08 | XR_ITS ---
EXAMINATION: XR LUMBOSACRAL SPINE CLINICAL INFORMATION: M54.16 - Radiculopathy, lumbar region COMPARISON: Correlated to CT abdomen pelvis dated June 12, 2024 TECHNIQUE: AP oblique and lateral views. FINDINGS: Multilevel marginal osteophyte formation and endplate sclerosis throughout the axial skeleton. Mild S-shaped curvature. No acute cortical disruption or gross malalignment. No lytic or blastic lesions. Facet joint hypertrophy at L4-5 and L5-S1. No lytic or blastic lesions. No metallic or radiopaque foreign body. XR/XR lumbar spine 4V min IMPRESSION: Multilevel thoracolumbar spondylosis without acute fracture or listhesis. Electronically signed by: Brian Calderón MD 02/08/2025 11:26 AM [facility]
== END 2025-02-08 08:53 | disposition home or self-care (01) ==
LOC: HO.XRAY 08:52
PROVIDERS: Absent Provider Physician Assistant; PCP Physician Assistant; Visit Provider Student in an Organized Health Care Education/Training Program
DX: M54.16 Radiculopathy, lumbar region (principal); M54.50 Low back pain, unspecified; M79.606 Pain in leg, unspecified
CPT/HCPCS: 72110

== ENCOUNTER 2025-02-08 08:52 | Outpatient (AMB) | payer OTHER, SELFPAY ==
--- NOTE | 2025-02-08 08:59 | MHC.PC.OV ---
Vital Signs 02/08/25 09:01 Height 6 ft 2 in Weight 220 lb BMI 28.2 BP 120/82 Blood Pressure Location Lt brachial Position Sitting Pulse 60 Pulse Source Pulse Oximeter Temp 97.1 F Temp Source Temporal Artery Scan Pulse Oximetry (%) 98 Oxygen Delivery Method Room Air Intake Visit Reasons: rt side pain from hip down to feet Intake Note: Patient complains of Right side of hip down to feet. 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 The pain is localized to the right side, described as a throbbing that starts in the lower back and radiates through his buttock to his foot, with his knee and ankle throbbing significantly. Symptoms have recently worsened after moving and carrying heavy items. The pain severely disrupts his sleep, allowing him only to catnap for 10-15 minutes at a time. The pain is worst when sitting, driving or lying down and is relieved by standing. He has been seeing a chiropractor without improvement and was advised he may have an L5 disc issue. Past medical history is remarkable for hypertension, hyperlipidemia, TIA, pulmonary embolus (complete a course of anticoagulant), Stage 4 throat cancer, which was successfully treated with chemotherapy and radiation with reportedly residual numbness and tingling in feet and ankles since the treatment. Current medications include aspirin atorvastatin. [facility] Medical History Hypothyroid GERD (gastroesophageal reflux disease) HLD (hyperlipidemia) Pulmonary embolism Renal mass History of throat cancer Surgical History H/O hernia repair Family History Father Pancreatic cancer Mother Lung cancer Social History Household Members: Significant Other Housing: House Are you a primary career advisor to a significant other at home: No Do you presently have visiting nurse or other home services: No Alcohol intake: current Alcohol intake frequency: holidays/special occasions only Patient Tobacco Use Status: Never used Tobacco e-Cigarette/Vaping Use: Never Used Second Hand Smoke Exposure: No service: Yes Current occupational status: employed 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 Current occupational exposures/hazards: No Cognitive needs: No Hearing needs: No Vision needs: Yes (Glasses) Questionnaire Thrive Questionnaire Date Thrive assessed: 09/02/24 I am a: Patient What is your living situation today?: I have a steady place to live Within the past 12 months, did the food you bought not last and you didn't have the money to get more?: Never true Within the past 12 months, did you worry whether your food would run out before you got money to buy more?: Never true Do you have trouble paying for medicines?: No Do you have trouble getting transportation to medical appointments?: No Do you have trouble paying your heating and electricity bill?: No Do you have trouble taking care of your child, family member or friend?: No Do you have trouble with day-to-day activities such as bathing, preparing meals, shopping, managing finances, etc.?: No Are you currently unemployed and looking for a job?: No Are you interested in more education?: No Please select the resources that you would like help with: None Currently or been in a relationship where the following occur: No concerns reported THRIVE Score: 0 NEEL-7 AMB Questionnaire NEEL-7 Date NEEL - 7 assessed: 09/02/24 Source: Developed by Drs. Steve Gutierrez, Tala Pelletier, Shaquille Christine and colleagues, with an educational shahida from [employer] Physical exam (Primary Care) Vital Signs: Last Vital Signs Temp 97.1 F 02/08/25 09:01 Pulse 60 02/08/25 09:01 BP 120/82 02/08/25 09:01 Pulse Ox 98 02/08/25 09:01 Oxygen Delivery Method Room Air 02/08/25 09:01 General: Well-appearing, alert, oriented ?3, in no acute distress. Cardiovascular: RRR, S1-S2 appreciated, no murmurs, rubs or gallops. Respiratory: Lungs clear to auscultation bilaterally, no wheezes, rales or rhonchi. Abdomen: Soft, nontender, nondistended. Normoactive bowel sounds. Back exam: Limited range of motion of lower back due to pain. No tenderness upon palpation of paraspinous muscles. Negative bilateral straight leg raise test. Sensation and strength intact in bilateral lower extremity. BMI result Body Mass Index 28.2 Tobacco/Smoking Status: Tobacco use Status Tobacco use date assessed 02/08/25 02/08/25 09:01 Patient Tobacco Use Status Never used Tobacco 02/08/25 09:01 Tobacco use type 02/05/25 15:12 e-Cigarette/Vaping Use Never Used 02/08/25 09:01 Thrive Assessment: Date of Thrive Assessment Date Thrive assessed 09/02/24 02/08/25 09:01 Currently or been in a relationship where the following occur: No concerns reported Coding Level of Care Code Est Pt Level 3 (66839) Diagnoses Low back pain radiating down leg M54.50; M79.606 Assessment & Plan Assessment & Plan (1) Low back pain radiating down leg: Code(s): M54.50 - Low back pain, unspecified; M79.606 - Pain in leg, unspecified Category: Medical Plan: Patient presenting with right-sided low back pain with sciatica. Plan - Obtain Xray of lumbar spine -start naproxen 500 mg twice a day for 7 days, then twice a day as needed thereafter -start omeprazole 40 mg daily for 7 days while on naproxen - PT referral provided Orders: Orders PT Evaluation and Treatment Today M54.50 - Low back pain, unspecified Medications: New omeprazole 40 mg PO DAILY 30 caps 0RF naproxen 500 mg PO BID 30 tabs 0RF back pain Patient Instructions: Take naproxen with food and make sure to drink enough fluids to minimize risk of kidney injury. Take omeprazole 40 mg in morning 30 min before food. You make take it while on Naproxen to protect stomach.
[2025-02-08 09:01] VITALS: BP 120/82; PULSE 60; TEMP 36.2; O2SAT 98; BMI 28.2
--- OUTSIDE RECORDS SUMMARY | 2025-02-08 09:25 | XMS_ITS | Continuity of Care Document ---
Author Organization [place] - [facility], [facility] Address [address] [place] [address] Care Team Providers Care Supervisor [employer] Name Role Phone YURIDIA MURGUIA Primary Care Provider Assessment Encounter Date Assessment Date Assessment LastModified by Organization Details LastModified Time 12/25/2024 12/25/2024 No evidence of disease on examination today. Fiberoptic examination of nasopharynx, hypopharynx and larynx was stable. Cancer surveillance in 12 months was recommended. The patient has a history of transient ischemic attack (TIA) with resolved symptoms. He was started on aspirin and additional medications for stroke prevention. 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 He has been advised to continue follow-up care and surveillance. The patient reports sciatica-related pain in his right leg, which limits his mobility. child care giver and stretching exercises have been initiated, and he is encouraged to continue these therapies. Further evaluation may be warranted if symptoms persist. The patient experiences throat pain at night, likely related to residual effects of prior cancer treatment. No changes in management are recommended at this time. The patient is advised to improve dietary habits and increase physical activity as tolerated to address high blood pressure and cholesterol. He is encouraged to follow up with his primary care physician for ongoing management of these conditions. Follow-up is recommended in one year for routine surveillance. [email or web address] Not available 12/25/2024 09:19:17 Plan of Treatment Reminders Order Date Submit Date Provider Last Modified By Organization Details Last Modified Time Details Appointments Establish ed 15 2025 09:30A Araceli PERERA MD Not available Not available Not available Lab None recorded. Referral None recorded. Procedures None recorded. Surgeries None recorded. Imaging None recorded. Medication Orders None recorded. Patient TargetsNo targets recorded. Patient Instructions Encounter Date Encounter Id Patient Instructions Last Modified By Organization Details Last Modified Time 12/25/2024 [id number] - Continue prescribed medications for stroke prevention. - Follow up with primary care physician for management of high blood pressure and cholesterol. - Maintain dietary improvements and increase physical activity as tolerated. - Continue rn transitional care and stretching exercises for sciatica. - Schedule routine surveillance appointment in one year. [email or web address] Not available 12/25/2024 09:19:17 Please note: Parts of this encounter note have been generated by AI based on audio conversation. Patient consent was required prior to utilizing this technology. Content review was required prior to finalizing the note. [email or web address] Not available 12/25/2024 09:19:17 Reason for Referral None Reported. 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; Note: Date Diagnosed : 03/03/2015 1:35 PM (C01) Not Available [facility] 4 03:05:25 Sensorine ural hearing loss of bilateral ears 371524578 Active 2015 Sensorine ural hearing loss, bilateral ; Note: Date Diagnosed : 04/21/2015 11:21 AM (H90.3) Not Available [facility] 4 03:05:26 Bilateral tinnitus 03351453047 02 Active 2015 Tinnitus, bilateral ; Note: Date Diagnosed : 03/08/2016 9:16 AM (H93.13) Not Available [facility] 4 03:05:24 Gastroeso phageal reflux disease without esophagit is 767750305 Active 2016 Gastro-es ophageal reflux disease without esophagit is; Note: Date Diagnosed : 01/04/2017 9:54 AM (K21.9) Not Available [facility] 4 03:05:25 Follow-up visit Active 2019 Encounter for follow-up examinati on after completed treatment for malignant neoplasm; Note: Date Diagnosed : 04/13/2019 12:29 PM (Z08) Not Available [facility] 4 03:05:24 History of malignant neoplasm of tongue 159556527 Active 2019 Personal history of malignant neoplasm of tongue; Note: Date Diagnosed : 04/13/2019 12:29 PM (Z85.810) Not Available [facility] 4 03:05:26 History of primary malignant neoplasm of base of tongue 67114050525 356106 Active 2023 Primary tumor location: left base of the tongue Tumor staging: T2N2b SCCA Treatment : XRT chemo Date of treatment completio n:05/2015 Oncology team: Dr Arnold/Jostin PERERA MD [address] [place] [address], [place], [phone] , [place] - [facility] 4 19:32:40 Transient cerebral ischemia 344607317 Active 2024 ZACH PERERA MD [address] [place] [address], [place], [address] , [place] - [facility] 5 09:19:06 Disorder of right sciatic nerve 82201690545 9102 Active 2024 ZACH PERERA MD [address] [place] [address], [place], [address] , [place] [facility] 5 09:20:11 Problem Notes None recorded. Procedures Surgical History Date Name Laterality Status Provider Name and Address Organization Details Recorded Time 12/25/2024 FOL_DP completed ZACH PERERA MD [address] [place] [address], [place], [phone], [place] - [facility] 12/24/2024 12:35:24 12/20/2023 FOL_DP completed ZACH PERERA MD [address] [place] [address] [place], [phone], [place] - [facility] 12/19/2023 19:33:58 Imaging Results None recorded. Procedure Notes None recorded. Medical Equipment None Reported. Allergies No known drug allergies Medications Name Sig Start Date Stop Date Status Note LastModified by Organization Details LastModified Time atorvasta tin 40 mg tablet TAKE 1 TABLET BY MOUTH EVERY DAY active Not Available Not Available No t Available clindamyc in HCl 300 mg capsule 1 capsule by mouth 12/19 completed Medicati on ID: [id number] D uration Value: 5 Prescri bed By Name: Narayan Morales nd Name: clindamy edwin HCl Send Method: E-Prescr ibed Sub s Allowed: subs OK Medic ationGen ericName : clindamy edwin HCl Not Available Not Available Not Available ibuprofen 800 mg tablet 12/19 completed Medicati on ID: [id number] Du ration Value: 10 Brand Name: ibuprofe n Send Method: E-Prescr ibed Sub s Allowed: subs OK Speci al Instruct ion: TAKE 1 TABLET BY MOUTH TWICE A DAY FOR 10 DAYS NEEDED M edicatio nGenerlayla Name: ibuprofe n Not Available Not Available Not Available Peridex 0.12 % mouthwash 12/19 completed Medicati on ID: [id number] P rescribe d By Name: Narayan Morales nd Name: Peridex Send Method: E-Prescr ibed Sub s Allowed: subs OK Speci al Instruct ion: 10 ml swish and spit TID x 2 week Med icationG enericNa me: Peridex Not Available Not Available Not Available oxycodone 5 mg/5 mL oral solution 5-10 ml by mouth 12/19 completed Medicati on ID: [id number] D uration Value: 7 Prescri bed By Name: Narayan Morales nd Name: oxycodon e Send Method: E-Prescr ibed Sub s Allowed: subs OK Medic ationGen ericName : oxycodon e Not Available Not Available Not Available clopidogr el 75 mg tablet TAKE 1 TABLET BY MOUTH EVERY DAY FOR 21 DAYS active Not Available Not Available No t Available Percocet 5 mg-325 mg tablet 1-2 tablet by mouth 12/19 completed Medicati on ID: [id number] Pr escribed By Name: Narayan Morales nd Name: Percocet Send Method: E-Prescr ibed Sub s Allowed: subs OK Medic ationGen ericName : Percocet Not Available Not Available Not Available oxycodone 5 mg tablet TAKE 1 TABLET BY MOUTH EVERY 8 HOURS NEEDED FOR PAIN active Not Available Not Available No t Available Ciprodex 0.3 %-0.1 % ear drops,anyi pension 01/12 completed Medicati on ID: [id number] Du ration Value: 7 Reason: () Brand Name: Ciprodex Send Method: E-Prescr ibed Sub s Allowed: subs OK Speci al Instruct ion: PLACE 4 DROPS IN AFFECTED EAR(S) 2 TIMES PER DAY FOR 7 DAYS Med icationG enericNa me: Ciprodex Not Available Not Available Not Available Eliquis 5 mg tablet TAKE 1 TABLET BY MOUTH TWICE DAILY active Not Available Not Available No t Available Readi-Cat 2 2 % (w/v) oral suspensio n TAKE 900 ML BY MOUTH ONCE NEEDED FOR PREPROCE DURE FOR 1 DAY 12/25 completed Not Available Not Available Not Available Vitals Date Recorded Body weight Provider Name an d Address Organization Details Last Updated DateTime 12/25/2024 37262.32 g LETTY NG [place] - [facility] 12/25/2024 09:00:38 Social History None recorded. Functional Status None recorded. Mental Status None recorded. Family History Nothing Reported. Medical History No medical history recorded. Past Encounters Encounter ID Performer Location Encounter Start Date Encounter Closed Date Diagnosis/Indication Diagnosis SNOMED-CT Code Diagnosis ICD10 Code Diagnosis IMO Codes Diagnosis Note [id number] ZACH PERERA MD [facility] [address] [address] 12/25/2024 08:53:47 12/25/2024 09:22:26 History of primary malignant neoplasm of base of tongue [id number] 6075162 Z85.810 Transient cerebral ischemia 131693936 G45.9 4460 Disorder o f right sciatic nerve 4533094876 66163 M54.31 [id number] Health Concerns Section Related Observation LastModified by Organization Detai ls LastModified Time None Recorded Concern Status LastModified by Organization Details LastModified Time None Recorded Payers Encounter Date Sequence Insurance Name Policy Number Policy Jackson Covered Member ID Jackson Member ID Guarantor Name 12/25/2024 1 [employer] [id number] Andre Lawler [id number] Andre Lawler Notes Date Note Type Note Provider Name and Address Organization Details Recorded Time 12/25/2024 text/html Primary tumor location: left base of the tongue Tumor staging: T2N2b SCCA Treatment: XRT chemo Date of treatment completion:05/2015 Oncology team: Dr Arnold/Debra Andre Lawler is a 63-year-old male who presents for evaluation following a transient ischemic attack (TIA) last weekend. He reports experiencing sudden speech difficulties, characterized by incoherent and nonsensical speech, which progressively worsened over a few minutes. He was accompanied by his girlfriend, who is a engineer first assistant, and was taken to [facility] where symptoms persisted upon arrival but resolved within approximately ten minutes. Imaging studies of the head and neck were performed, and he was started on aspirin and additional medications. He denies residual weakness in his extremities, visual disturbances, or swallowing difficulties but notes occasional difficulty recalling specific words during speech. His medical history includes treatment for cancer of the left base of the tongue with chemotherapy and radiation in May 2015, hernia surgery in May, pulmonary embolisms treated with Eliquis, and recent kidney surgery. He also reports sciatica-related pain in his right leg, which limits his ability to walk and has been managed with rn transitional care and stretching exercises. He attributes his high blood pressure and cholesterol to prolonged sedentary work hours and poor dietary habits, which he is attempting to improve. He experiences throat pain at night, which he believes is related to residual effects of his cancer treatment. ZACH PERERA MD [address] [place] [address], [place], [phone], [place] - [facility] 12/25/2024 09:20:27
--- OUTSIDE RECORDS SUMMARY | 2025-02-08 09:25 | XMS_ITS | Data Portability ---
Author Organization [place] - [facility], Allergy Address [address] [address] Care Team Providers Care Cullet Crusher Name Role Phone YURIDIA MURGUIA Primary Care Provider Assessment Encounter Date Assessment Date Assessment LastModified by Organization Details LastModified Time 12/20/2023 12/20/2023 No evidence of disease on examination today. Fiberoptic examination of nasopharynx, hypopharynx and larynx was stable. Cancer surveillance in 12 months was recommended. He is aware that Dr Arnold [email or web address] Not available 12/20/2023 14:36:05 12/25/2024 12/25/2024 No evidence of disease on [...] his right leg, which limits his mobility. healthcare customer service and stretching exercises have been initiated, and [...] Details Appointments Establish ed 15 2025 09:30A M ZACH PERERA MD Not available Not available Not available Lab None recorded. Referral None recorded. Procedures None recorded. Surgeries None recorded. Imaging None recorded. Medication Orders None recorded. Patient TargetsNo targets recorded. Patient Instructions Encounter Date Encounter Id Patient Instructions Last Modified By Organization Details Last Modified Time 12/25/2024 [id number] - Continue prescribed medications for stroke prevention. - Follow up with primary care physician for management of high blood pressure and cholesterol. - Maintain dietary improvements and increase physical activity as tolerated. - Continue care director and stretching exercises for sciatica. - Schedule [...] Time Neoplasm of uncertain behavior of tongue 43268828 Active 2014 Neoplasm of uncertain behavior of tongue; Note: Date Diagnosed : 5 10:04 AM (D37.02) Not Available [facility] 4 03:05:25 Primary malignant neoplasm of base of tongue 54087051 Active 2014 Malignant neoplasm of dorsal surface of base of tongue; Note: Date Diagnosed : 03/03/2015 1:35 PM (C01) Not Available [facility] 4 03:05:25 Sensorine ural hearing loss of bilateral ears 453322508 Active 2015 Sensorine ural hearing loss, bilateral ; Note: Date Diagnosed : 04/21/2015 11:21 AM (H90.3) Not Available [facility] 4 03:05:26 Bilateral tinnitus 12907064829 02 Active 2015 Tinnitus, bilateral ; Note: Date Diagnosed : 03/08/2016 9:16 AM (H93.13) Not Available [facility] 4 03:05:24 Gastroeso phageal reflux disease without esophagit is 514304711 Active 2016 Gastro-es ophageal reflux disease without esophagit is; Note: Date Diagnosed : 01/04/2017 9:54 AM (K21.9) Not Available [facility] 4 03:05:25 Follow-up visit Active 2019 Encounter for follow-up examinati on after completed treatment for malignant neoplasm; Note: Date Diagnosed : 04/13/2019 12:29 PM (Z08) Not Available [facility] 4 03:05:24 History of malignant neoplasm of tongue 729172359 Active 2019 Personal history of malignant neoplasm of tongue; Note: Date Diagnosed : 04/13/2019 12:29 PM (Z85.810) Not Available [facility] 4 03:05:26 History of primary malignant neoplasm of base of tongue 36197787025 546097 Active 2023 Primary tumor location: left base of the tongue Tumor staging: T2N2b SCCA Treatment : XRT chemo Date of treatment completio n:05/2015 Oncology team: Dr Arnold/Jostin PERERA MD [address] [place] [address],[place] [address], [place], [phone] , [facility] - [facility] 4 19:32:40 Transient cerebral ischemia 169037089 Active 2024 ZACH PERERA MD [address] [place] [address],[place] [address], [place], [address] , [place] - [facility] 5 09:19:06 Disorder of right sciatic nerve 87082211054 9102 Active 2024 ZACH PERERA MD [address] [place] [address],[place] [address], [place], [address] , [place] - [facility] [place] 5 09:20:11 Problem Notes None recorded. Procedures Surgical History Date Name Laterality Status Provider Name and Address Organization Details Recorded Time 12/25/2024 FOL_DP completed ZACH PERERA MD [address] [place] [address],[place] [address], [place], [phone], [place] - [facility] 12/24/2024 12:35:24 12/20/2023 FOL_DP completed ZACH PERERA MD [address] [place] [address], [phone], [place] - [facility] 12/19/2023 19:33:58 Imaging Results None recorded. [...] by mouth 12/19 completed Medicati on ID: [id number] D uration Value: 5 Prescri bed By Name: Narayan Morales nd Name: clindamy edwin HCl Send Method: E-Prescr ibed Sub s Allowed: subs OK Medic ationGen ericName : clindamy edwin HCl Not Available Not Available Not Available ibuprofen 800 mg tablet 12/19 completed Medicati on ID: [id number] Du ration Value: 10 Brand Name: ibuprofe n Send Method: E-Prescr ibed Sub s Allowed: subs OK Speci al Instruct ion: TAKE 1 TABLET BY MOUTH TWICE A DAY FOR 10 DAYS NEEDED M edicatio nGeneric Name: ibuprofe n Not Available Not Available Not Available Peridex 0.12 % mouthwash 12/19 completed Medicati on ID: [id number] P rescribe d By Name: Narayan Morales nd Name: Peridex Send Method: E-Prescr ibed Sub s Allowed: subs OK Speci al Instruct ion: 10 ml swish and spit TID x 2 week Med icationG enericNa me: Peridex Not Available Not Available Not Available oxycodone 5 mg/5 mL oral solution 5-10 ml by mouth 12/19 completed Medicati on ID: [id number] D uration Value: 7 Prescri bed By [...] by mouth 12/19 completed Medicati on ID: [id number] Pr escribed By Name: Narayan Morales nd Name: Percocet Send Method: E-Prescr ibed Sub s Allowed: subs OK Medic ationGen ericName : Percocet Not Available Not Available Not Available oxycodone 5 mg tablet TAKE 1 TABLET BY MOUTH EVERY 8 HOURS NEEDED FOR PAIN active Not Available Not Available No t Available Ciprodex 0.3 %-0.1 % ear drops,[facility] 01/12 completed Medicati on ID: [id number] Du ration Value: 7 Reason: () Brand [...] Details Last Updated DateTime 12/20/2023 187.96 cm 68722.32 g Ivana Baron [place] - [facility] 12/20/2023 14:20:30 Date Recorded Body weight Provider Name an d Address Organization Details Last Updated DateTime 12/25/2024 76361.32 g LETTY NG [place] - [facility] 12/25/2024 09:00:38 Social History None recorded. Functional Status None recorded. Mental Status None recorded. Family History Nothing Reported. Medical History No medical history recorded. Past Encounters Encounter ID Performer Location Encounter Start Date Encounter Closed Date Diagnosis/Indication Diagnosis SNOMED-CT Code Diagnosis ICD10 Code Diagnosis IMO Codes Diagnosis Note [id number] ZACH PERERA MD [facility] [address] [place] [address] [address] 12/20/2023 13:46:57 12/20/2023 14:39:12 History of primary malignant neoplasm of base of tongue 5080005459 1242909 Z85.810 [id number] ZACH PERERA MD [facility] [address] [place] [address] [address] 12/25/2024 08:53:47 12/25/2024 09:22:26 History of primary malignant neoplasm of base of tongue 7013768295 3715156 Z85.810 Transient cerebral ischemia 495576713 G45.9 4460 Disorder o f right sciatic nerve 6547650797 17424 M54.31 3336230 Health Concerns Section Related Observation LastModified by Organization Detai ls LastModified Time None Recorded Concern Status LastModified by Organization Details LastModified Time None Recorded Advance Directives Directive None Recorded Payers Insurance Date Sequence Insurance Name Policy Number Policy Jackson Covered Member ID Jackson Member ID Guarantor Name 12/25/2024 1 [employer] [id number] Andre G Nuris [id number] Andre Keith Nuris Notes Date Note Type Note Provider Name and Address Organization Details Recorded Time 12/20/2023 text/html ROS as noted in the HPI Primary tumor location: left base of the tongueTumor staging: T2N2b SCCATreatment: XRT chemoDate of treatment completion:05/2015O ncology team: Dr Arnold/Debra no health changes ZACH PERERA MD [address] [place] [address], [phone], [facility] - [facility] 12/20/2023 14:36:24 12/25/2024 text/html Primary tumor location: left base of the tongue Tumor staging: T2N2b SCCA Treatment: XRT chemo Date of treatment completion:05/2015 Oncology team: Dr Arnold/Debra Powell Keith Nuris is a 63-year-old male who presents for evaluation following a transient ischemic attack (TIA) last weekend. He reports experiencing sudden speech difficulties, characterized by incoherent and nonsensical speech, which progressively worsened over a few minutes. He was accompanied by his girlfriend, who is a soda fountain clerk, and was taken to [facility] where symptoms persisted upon arrival but resolved [...] to walk and has been managed with care director and stretching exercises. He attributes his high blood pressure and cholesterol to prolonged sedentary work hours and poor dietary habits, which he is attempting to improve. He experiences throat pain at night, which he believes is related to residual effects of his cancer treatment. ZACH PERERA MD [address] [place] [address], [place], [address], [facility] - [facility] 12/25/2024 09:20:27
== END 2025-02-08 09:30 | disposition home or self-care (01) ==
LOC: HO.HMCH 08:53
PROVIDERS: PCP Physician Assistant; Visit Provider Student in an Organized Health Care Education/Training Program
DX: M54.50 Low back pain, unspecified (principal); M79.606 Pain in leg, unspecified

== ENCOUNTER → 2025-02-08 09:39 | Outpatient (BNV) | payer OTHER, SELFPAY | PROVIDERS: Absent Provider Physician Assistant; PCP Physician Assistant; Visit Provider Radiology Diagnostic Radiology | DX: M47.25 Other spondylosis with radiculopathy, thoracolumbar region (principal) | CPT/HCPCS: 72110 ==

== ENCOUNTER 2025-02-08 20:35 | Emergency (ER) | payer OTHER, SELFPAY ==
[2025-02-08 20:42] VITALS: BP 181/83; PULSE 62; RESP 16; TEMP 36.1; O2SAT 98; BMI 28.6
--- NOTE | 2025-02-08 20:47 | ECG_ITS ---
Test Reason : HYPERTENSIVE Blood Pressure : */* mmHG Vent. Rate : 57 BPM Atrial Rate : 57 BPM P-R Int : 176 ms QRS Dur : 80 ms QT Int : 418 ms P-R-T Axes : 59 42 42 degrees QTcB Int : 406 ms Sinus bradycardia Otherwise normal ECG When compared with ECG of 12-Jun-2024 07:32, Nonspecific T wave abnormality no longer evident in Anterior leads Referred By: Generic ED Physician Electronically Signed By: TANJA PARADA MD
[2025-02-08 21:04] LABS: MANUAL DIFF FLAG NO
[2025-02-08 21:06] LABS: Hematocrit 45.4 % (42.0-52.0); Hemoglobin 14.9 g/dl (14.0-18.0); Imm Gran Abs Auto 0.01 X10*3/uL (0.00-0.03); Imm Gran Pct Auto 0.2 % (0.0-0.4); Lymphocytes Absolute Auto 1.7 X10*3/uL (1.2-4.9); Mean Corpuscular HGB Conc 32.8 g/dl (31.0-36.0); Mean Corpuscular Hemoglobin 29.5 pg (27.0-33.0); Mean Corpuscular Volume 89.9 fL (80.0-98.0); NRBC Abs Auto 0.000 X10*3/uL (0.0-0.012); NRBC Pct Auto 0.0 /100WBC (0.0-0.2); Platelet Count 184 X10*3/uL (160-400); Red Blood Count 5.05 X10*6/uL (4.60-5.80); White Blood Count 6.4 X10*3/uL (4.8-10.8)
--- NOTE | 2025-02-08 21:12 | PC.NURSE ---
Per US tech, pt declined to have US to r/o DVT for R leg. No provider has picked up patient yet. Necessity for US can be discussed with provider.
[2025-02-08 21:18] LABS: INTERNATIONAL NORM RATIO 0.9 (0.9-1.1); Prothrombin Time 10.8 SEC (11.2-13.5)
[2025-02-08 21:20] LABS: Alanine Aminotransferase 34 U/L (0-40); Albumin Level 4.5 g/dL (3.5-5.0); Alkaline Phosphatase 107 U/L (39-117); Anion Gap 12 (12-20); Aspartate Amino Transferase 26 U/L (5-37); Blood Urea Nitrogen 19 mg/dL (9-16); Calcium 9.6 mg/dL (8.4-10.2); Carbon Dioxide 26 mmol/L (22-29); Chloride 107 mmol/L (96-108); Creatinine Clr Calc Pharmacy 71.0; Estimated Glomerular Filt Rate 53; Magnesium 2.0 mg/dL (1.6-2.6); Potassium 4.4 mmol/L (3.3-5.1); Sodium 141 mmol/L (135-145); Total Protein 7.1 g/dL (6.5-8.0)
[2025-02-08 21:28] LABS: Troponin-I High Sensitivity < 2.7 ng/L (<3.5-35.0)
--- NOTE | 2025-02-08 22:21 | ED_ITS ---
HPI - General Adult General Chief complaint: Extremity Problem Stated complaint: extreme rt leg pain Time Seen by Provider: 02/08/25 22:02 Source: patient Mode of arrival: ambulatory Limitations: no limitations History of Present Illness ED Provider: Rian Myers HPI narrative: [age] year male with pmh of sciatica presents to the ED reqeusting naproxen. Patient's states his PCP sent a naproxen prescription to the pharmacy, but he will not be able to chart picker the meds until tomorrow. patient has sciatica and was seen by PCP today for back pain radiating down right leg. Patient had xray done today and actually was called by Pain management for a future appointment. patient denies abdominal pain, nausea, vomitting, fever, chills, flank pain, dysuria, hematuria, any urinary/bowel incontinence, paralysis of lower extremities, IV drug use, or immuno compromised diseases Related Data Home Medications ?Medication ?Instructions ?Recorded ?Confirmed aspirin 81 mg tablet 81 mg PO DAILY 01/11/25 Previous Rx's ?Medication ?Instructions ?Recorded atorvastatin 80 mg tablet (Lipitor) 40 mg (1/2 x 80 mg ) PO DAILY #90 01/11/25 tabs naproxen 500 mg tablet 500 mg PO BID back pain #30 tabs 02/08/25 omeprazole 40 mg capsule,delayed 40 mg PO DAILY #30 ca ps 02/08/25 release gabapentin 100 mg capsule 100 mg PO BID 14 days #28 ca ps 02/09/25 prednisone 10 mg tablet 10 mg PO DIRECTED 9 days #18 02/09/25 tabs Allergies Allergy/AdvReac Type Severity Reaction Status Date / Time No Known Allergies Allergy Verified 02/08/25 20:46 Review of Systems 2 Review of Systems: back pain radiating down right leg. Yes all other systems are reviewed and are negative PMFSH Past Medical History Medical History Hypothyroid GERD (gastroesophageal reflux disease) HLD (hyperlipidemia) Pulmonary embolism Renal mass History of throat cancer Surgical History H/O hernia repair Family History Family History Father Pancreatic cancer Mother Lung cancer Social History Social History Household Members: Significant Other Housing: House Are you a primary nurse behavioral health care to a significant other at home: No Do you presently have visiting nurse or other home services: No Alcohol intake: current Alcohol intake frequency: holidays/special occasions only Patient Tobacco Use Status: Never used Tobacco e-Cigarette/Vaping Use: Never Used Second Hand Smoke Exposure: No Advance Directives: No Advance Directives Information Provided: No Do you have a plan to hurt others: No Plan service: Yes Current occupational status: employed Current occupation: [employer]. Current occupational exposures/hazards: No Cognitive needs: No Hearing needs: No Vision needs: Yes (Glasses) Physical Exam ED Vital Signs: Vital Signs - 24 hr 02/08/25 20:42 Temperature 97.0 F Pulse Rate 62 Respiratory Rate 16 Blood Pressure 181/83 H Pulse Oximetry 98 Oxygen Delivery Method Room Air BMI result Body Mass Index 28.6 Const General: cooperative, healthy appearing, comfortable, no acute distress, well developed, alert, awake and Physically active [facility] Head: Yes normal to inspection, Yes No palpable skull fracture present, Yes normocephalic and Yes atraumatic Eyes General: appearance normal, both eyes and all related structures Neck Neck: Yes normal visual inspection, Yes full ROM, Yes no lymphadenopathy, Yes no meningeal signs, Yes trachea midline, Yes supple, No anterior neck swelling and No tender Chest Chest palpation & inspection: normal inspection of the chest and normal palpation of entire chest wall Resp Effort & Inspection: normal respiratory effort and able to speak in complete sentences Auscultation: clear to auscultation bilaterally Cardio Jugular venous distension: no JVD Heart sounds: S1 normal heart sound present and S2 normal heart sound present GI Inspection: Yes normal to inspection Palpation (GI): Soft to palpation, not firm, nontender, no guarding and not rigid General: Yes no CVA tenderness Back/Spine/Pelvis Back: no CVA tenderness and No back tenderness Skin General skin exam: no rashes or lesions noted, elasticity normal and turgor normal Neuro General: gait normal, tone normal, moves all extremities, Normal light touch and pain sensation, no meningeal signs, no focal motor deficits and CN's II-XI intact bilaterally Extrem General: Yes normal to inspection, Yes full ROM and Yes capillary refill normal Psych Appearance: grossly normal, well kempt and not disheveled Medications Administered Discontinued Medications Generic Name Dose Route Start Last Admin Trade Name Luana PRN Reason Stop Dose Admin Naproxen 500 mg 02/08/25 22:11 02/08/25 22:25 Naproxen 500 Mg Tablet PO 02/08/25 22:12 500 mg ONCE ONE Administration Medical Decision Making Medical Decision Making [facility] Narrative: 64-year-old male presents to ED for right-sided back pain going down right leg requesting that is naproxen medication. Patient wants no further intervention. Patient had x-ray earlier today which showed thoracic lumbar spondylosis. Not suspecting cauda equinus, epidural abscess, osteomyelitis, kidney stones, pyelonephritis, DVT, arterial occlusion, or any other life-threatening etiology. EKG labs troponin were ordered from triage. Differential Diagnosis Differential Diagnoses: The differential diagnosis associated with the presentation includes Admission/Observation Consideration of admission/observation: Escalation of care including admission/observation considered Lab Data [facility] Lab Attestation statement: I reviewed the patient's lab results. 02/08/25 21:00 02/08/25 21:00 Labs: Lab Results 02/08/25 Range/Units 21:00 WBC 6.4 (4.8-10.8) X10*3/uL RBC 5.05 (4.60-5.80) X10*6/uL Hgb 14.9 (14.0-18.0) g/dl Hct 45.4 (42.0-52.0) % MCV 89.9 (80.0-98.0) fL MCH 29.5 (27.0-33.0) pg MCHC 32.8 (31.0-36.0) g/dl RDW 13.6 (11.0-16.0) % Plt Count 184 (160-400) X10*3/uL MPV 10.2 (9.4-12.4) fL Immature Gran % (Auto) 0.2 (0.0-0.4) % Neut % (Auto) 54.2 (45-73) % Lymph % (Auto) 26.2 (20-40) % Atlantic % (Auto) 7.8 (2-11) % Eos % (Auto) 9.7 H (0-4) % Baso % (Auto) 1.9 (0-2) % Lymph # (Auto) 1.7 (1.2-4.9) X10*3/uL Atlantic # (Auto) 0.5 (0.1-1.2) X10*3/uL Eos # (Auto) 0.6 H (0.0-0.4) X10*3/uL Baso # (Auto) 0.1 (0.0-0.2) X10*3/uL Abs Immat Gran (auto) 0.01 (0.00-0.03) X10*3/uL Absolute Neuts (auto) 3.5 (2.0-8.3) x10*3/uL Absolute Nucleated RBC 0.000 (0.0-0.012) X10*3/uL Nucleated RBC % (auto) 0.0 (0.0-0.2) /100WBC PT 10.8 L (11.2-13.5) SEC INR 0.9 (0.9-1.1) Sodium 141 (135-145) mmol/L Potassium 4.4 (3.3-5.1) mmol/L Chloride 107 (96-108) mmol/L Carbon Dioxide 26 (22-29) mmol/L Anion Gap 12 (12-20) BUN 19 H (9-16) mg/dL Creatinine 1.35 (0.5-1.4) mg/dL Estim Creat Clear Calc 71.0 Estimated GFR 53 Random Glucose 111 (60-115) mg/dL Calcium 9.6 (8.4-10.2) mg/dL Magnesium 2.0 (1.6-2.6) mg/dL Total Bilirubin 0.3 (0.0-1.0) mg/dL AST 26 (5-37) U/L ALT 34 (0-40) U/L Alkaline Phosphatase 107 (39-117) U/L Troponin I High Sens < 2.7 (<3.5-35.0) ng/L Total Protein 7.1 (6.5-8.0) g/dL Albumin 4.5 (3.5-5.0) g/dL Independent Interpretation I performed an independent interpretation of an: EKG (Sinus bradycardia) Discharge Plan Discharge Clinical Impression: Lumbar spondylosis Patient Disposition: Home, Self-Care Instructions: Osteoarthritis (ED), Lower Back Exercises (ED) Additional Instructions: Recommend follow up with primary care provider, pain management, spinal surgeon. Recommend picking up your naproxen prescription tomorrow that your primary care provider prescribed at the pharmacy. Return to the ED immediately for worsening back pain, urinary/bowel incontinence, flank pain, fever, chills, nausea, vomiting, penile discharge, dysuria, hematuria, paralysis of lower extremities, numbness/tingling of genitals, or any other concerning symptoms. [address] [address] XRay Report Signed Patient: Andre Lawler MR#: [id number] : 1960 Acct:[id number] Age/Sex: 64 / M ADM Date: 02/08/25 Loc: [facility] Attending Dr: Ella Connelly MD Ordering Physician: Jp Yi PA-C Date of Service: 02/08/25 Procedure(s): XR lumbar spine 4V min Accession Number(s): [id number] cc: Jp Yi PA-C~ Reason for Exam: M54.16 - Radiculopathy, lumbar region EXAMINATION: XR LUMBOSACRAL SPINE CLINICAL INFORMATION: M54.16 - Radiculopathy, lumbar region COMPARISON: Correlated to CT abdomen pelvis dated June 12, 2024 TECHNIQUE: AP oblique and lateral views. FINDINGS: Multilevel marginal osteophyte formation and endplate sclerosis throughout the axial skeleton. Mild S-shaped curvature. No acute cortical disruption or gross malalignment. No lytic or blastic lesions. Facet joint hypertrophy at L4-5 and L5-S1. No lytic or blastic lesions. No metallic or radiopaque foreign body. XR/XR lumbar spine 4V min IMPRESSION: Multilevel thoracolumbar spondylosis without acute fracture or listhesis. Electronically signed by: Brian Calderón MD 02/08/2025 11:26 AM [facility] Prescriptions: No Action prednisone 10 mg tablet 10 mg PO DIRECTED 9 Days Qty: 18 0RF Rx Instructions: Take 3 tablets x3 days, 2 tablets x3 days, 1 tablet x3 days gabapentin 100 mg capsule 100 mg PO BID 14 Days Qty: 28 0RF omeprazole 40 mg capsule,delayed release(DR/EC) 40 mg PO DAILY Qty: 30 0RF naproxen 500 mg tablet 500 mg PO BID Qty: 30 0RF aspirin 81 mg tablet 81 mg PO DAILY atorvastatin [Lipitor] 80 mg tablet 40 mg PO DAILY Qty: 90 3RF Referrals: Javed Hammond MD, PhD [Physician, Neuro Spine] - 2 days Referral Note: Back pain Clinical Impression: Lumbar spondylosis Stand Alone Forms: Work/School Release Interventions: ED Discharge Assessment Last Done: 02/08/25 22:49 Discharge Date/Time: 02/08/25 22:50 Print Language: Liberian
[2025-02-08 22:49] VITALS: BP 181/83; PULSE 62; RESP 16; TEMP 36.1; O2SAT 98
== END 2025-02-08 22:50 | disposition home or self-care (01) ==
PROVIDERS: Emergency Provider Emergency Medicine; PCP Physician Assistant
DX: M47.815 Spondylosis without myelopathy or radiculopathy, thoracolumbar region (principal); Z86.711 Personal history of pulmonary embolism
CPT/HCPCS: 36415; 80053; 83735; 84484; 85025; 85610; 93005; 99283; 99284

== ENCOUNTER → 2025-02-08 20:47 | Outpatient (BNV) | payer OTHER, SELFPAY | PROVIDERS: Emergency Provider Emergency Medicine; PCP Physician Assistant; Visit Provider Internal Medicine Cardiovascular Disease | DX: R00.1 Bradycardia, unspecified (principal) | CPT/HCPCS: 93010 ==

== ENCOUNTER 2025-03-04 07:48 | Outpatient (AMB) | payer OTHER, SELFPAY ==
--- NOTE | 2025-03-04 07:58 | A.OFFVIS_ITS ---
Vital Signs 03/04/25 08:04 Height 6 ft 2 in Weight 223 lb 6 oz BMI 28.7 BP 179/93 H Blood Pressure Location Lt brachial Position Sitting Pulse Source Pulse Oximeter Pulse Oximetry (%) 100 Oxygen Delivery Method Room Air Intake Visit Reasons: lumbar radiculopathy Intake Note: Pain today 0/10 Packer Dried Beef Required: No Accompanied by: Self / Same As Patient Allergies No Known Allergies Allergy (Verified 02/08/25 20:46) HPI Comments Details: The patient is a 64-year-old male presenting for evaluation of back pain with radiculopathy. The patient reports that his symptoms started in May of this year with a spontaneous onset, not associated with heavy lifting or exercise, falls or any injury. He describes back pain radiating to the right buttock, the side of the hip, and down into the heel, without involving the toes. The pain was characterized as throbbing, stabbing, and shooting, and was worse at night, interfering with his sleep. Symptoms were also exacerbated by prolonged sitting, laying down, and driving. His pain has currently resolved after taking prednisone and a muscle relaxant. He also previously tried naproxen and attended three or four chiropractic sessions, which he felt made the pain worse, particularly after an adjustment to his foot. Past medical history is significant for a transient ischemic attack (TIA) last summer, for which he takes aspirin and Plavix. He also has a history of a pulmonary embolism, which occurred after a hernia surgery. He is a survivor of stage 4 throat cancer, treated with chemotherapy and radiation, and has residual peripheral neuropathy with intermittent numbness and tingling in both feet, which is worse at night. The patient reports being physically active, previously walking up to 10 miles a day and hiking, but this has been limited by his back pain. He does not have diabetes, denies tobacco or marijuana use and drinks alcohol socially. A prior back X-ray revealed facet joint hypertrophy at L4-L5, multilevel thoracolumbar arthritis, bone spurs, mild scoliosis, and disc height loss in thoracic and lumbar regions. - Onset: Spontaneous onset in May. - Location: Low back. - Radiation: To the right buttock, side of the hip, and down to the heel. - Quality: Throbbing, stabbing, and shooting. - Aggravating factors: Worse at night, interfering with sleep. - Pain is also aggravated by prolonged sitting, laying down, and driving. - A recent walk/hike exacerbated pain, causing him to limp. - patient care associate reportedly worsened his symptoms. - Alleviating factors: Resolved after treatment with prednisone and a muscle relaxant. - Current status: Patient reports he has no pain at the time of the visit. - Analgesia: Pain is currently resolved following a course of prednisone and a muscle relaxant. - He previously tried naproxen. - Activities of Daily Living: When present, his pain interfered with sleep, walking, hiking, and driving. - Affect: No significant impact on mood was discussed. - Adverse Effects: No adverse effects from medications were discussed. - Aberrant Drug Related Behaviors: No aberrant behaviors were noted or discussed. Oswestry Low Back Pain Disability Score=2 (complete pain relief with prednisone and muscle relaxant) PFSH Medical History Hypothyroid GERD (gastroesophageal reflux disease) HLD (hyperlipidemia) Pulmonary embolism Renal mass History of throat cancer Surgical History H/O hernia repair Family History Father Pancreatic cancer Mother Lung cancer Social History Household Members: Significant Other Housing: House Are you a primary healthcare science specialist to a significant other at home: No Do you presently have visiting nurse or other home services: No Alcohol intake: current Alcohol intake frequency: holidays/special occasions only Patient Tobacco Use Status: Never used Tobacco e-Cigarette/Vaping Use: Never Used Second Hand Smoke Exposure: No service: Yes Current occupational status: employed 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 Current occupational exposures/hazards: No Cognitive needs: No Hearing needs: No Vision needs: Yes (Glasses) Review of Systems Const Details: - General: Denies current pain. - Neurological: Reports a history of right-sided radicular pain characterized as throbbing, stabbing, and shooting to the heel. - Reports intermittent numbness and tingling in both feet, which is worse at night. - Denies current radicular symptoms such as numbness or shooting pain. - Musculoskeletal: Reports a history of low back pain. - Genitourinary: Denies bladder or bowel dysfunction or saddle anesthesia. All systems reviewed & are unremarkable except as noted in HPI and below Physical Exam Vital Signs: Last Vital Signs BP 179/93 H 03/04/25 08:04 Pulse Ox 100 03/04/25 08:04 Oxygen Delivery Method Room Air 03/04/25 08:04 BMI result Body Mass Index 28.7 General: Appears afebrile. Alert and oriented. Mood and affect appropriate. Follows and participates in conversation appropriately. Respiratory effort is unlabored. No cough. Able to transition from sit to stand unassisted. Ambulates with bilaterally normal heel strike and toe off. General: Yes no CVA tenderness Back/Spine/Pelvis Other: Patient is able to walk and stand on heels and tip toes with no difficulties demonstrating good motor tone. No limping. Can flex forward to 75-80 degrees and extend to 5-10 degrees before experiencing lumbar pain. Demonstrates 5/5 strength of quadriceps bilaterally as well as flexion/dorsiflexion of bilateral feet against resistance. 2+ pedal pulses bilaterally. Straight leg rise with dorsiflexion negative bilaterally. +2 patellar and achilles reflexes bilaterally. Facet loading test positive bilaterally. Amanuel?s, Pelvic compression and Stinchfield tests are negative bilaterally. No groin pain with I/E hip rotations. Valsalva maneuver negative. Back: no CVA tenderness Cervical Spine: normal cervical lordosis, cervical ROM normal, No Cervical spine scars present and No Cervical spine tenderness Thoracic/Lumbar Spine: thoracic and lumbar spine normal to inspection, No Thoracic/lumbar spine scar(s), Lasegue's sign negative, straight leg raise negative bilaterally, No thoracic spinal tenderness and No lumbar spinal tenderness Sacroiliac joints: bilaterally nontender Extrem General: Yes capillary refill normal, Yes no clubbing, cyanosis or edema and Yes no calf tenderness Results Reviewed Results Reviewed: XR LUMBOSACRAL SPINE 02/08/25 CLINICAL INFORMATION: M54.16 - Radiculopathy, lumbar region COMPARISON: Correlated to CT abdomen pelvis dated June 12, 2024 TECHNIQUE: AP oblique and lateral views. FINDINGS: Multilevel marginal osteophyte formation and endplate sclerosis throughout the axial skeleton. Mild S-shaped curvature. No acute cortical disruption or gross malalignment. No lytic or blastic lesions. Facet joint hypertrophy at L4-5 and L5-S1. No lytic or blastic lesions. No metallic or radiopaque foreign body. IMPRESSION: Multilevel thoracolumbar spondylosis without acute fracture or listhesis. Assessment & Plan Assessment & Plan (1) Lumbar radiculopathy: Code(s): M54.16 - Radiculopathy, lumbar region Category: Medical (2) Low back pain radiating down leg: Code(s): M54.50 - Low back pain, unspecified; M79.606 - Pain in leg, unspecified Category: Medical (3) Peripheral neuropathy: Code(s): G62.9 - Polyneuropathy, unspecified Category: Medical (4) Lumbosacral spondylosis: Code(s): M47.817 - Spondylosis without myelopathy or radiculopathy, lumbosacral region Category: Medical Plan Regarding the patient's low back pain with right-sided radiculopathy, which is currently asymptomatic after a course of prednisone and a muscle relaxant, the plan is to initiate physical therapy. This is an appropriate time for physical therapy as his pain is controlled, which will allow for active participation to strengthen his core and improve body mechanics and flexibility. An EMG and nerve conduction study of the lower extremities will be ordered to evaluate for active radiculopathy and to assess the degree and type of his peripheral neuropathy. The patient was instructed to coordinate with his primary care provider about holding his Plavix for a few days before the EMG study. If the EMG reveals acute radiculopathy, an MRI of the lumbar spine will considered. An epidural steroid injection was discussed as a potential future treatment if symptoms worsens. For his peripheral neuropathy, we will monitor symptoms. If his symptoms become more severe, treatment with a Qutenza (capsaicin 8%) patch, can be considered. All questions and concerns have been answered and patient agreed with the treatment plan. Follow up after PT and sooner as needed. Patient was informed and verbally consented to the use of an ambient scribe for clinic note documentation during this visit. Orders: Orders NE electromyogram (EMG) Today G62.9 - Polyneuropathy, unspecified, M54.16 - Radiculopathy, lumbar region, M54.50 - Low back pain, unspecified, M79.606 - Pain in leg, unspecified NE nerve conduction velocity Today G62.9 - Polyneuropathy, unspecified, M54.16 - Radiculopathy, lumbar region, M54.50 - Low back pain, unspecified, M79.606 - Pain in leg, unspecified Coding Level of Care Code New Pt Level 4 (15054) Diagnoses Lumbar radiculopathy M54.16 Low back pain radiating down leg M54.50; M79.606 Peripheral neuropathy G62.9 Lumbosacral spondylosis M47.817
[2025-03-04 08:04] VITALS: BP 179/93; O2SAT 100; BMI 28.7
== END 2025-03-04 08:39 | disposition home or self-care (01) ==
LOC: HO.PMC 07:49
PROVIDERS: PCP Physician Assistant; Visit Provider Nurse Practitioner Family
DX: M54.16 Radiculopathy, lumbar region (principal); M54.50 Low back pain, unspecified; M79.606 Pain in leg, unspecified; G62.9 Polyneuropathy, unspecified; M47.817 Spondylosis without myelopathy or radiculopathy, lumbosacral region
CPT/HCPCS: 99204

== ENCOUNTER 2025-03-17 07:50 | Outpatient (REF) | payer OTHER, SELFPAY ==
[2025-03-17 08:45] LABS: Hematocrit 49.9 % (42.0-52.0); Hemoglobin 16.3 g/dl (14.0-18.0); Mean Corpuscular HGB Conc 32.7 g/dl (31.0-36.0); Mean Corpuscular Hemoglobin 29.4 pg (27.0-33.0); Mean Corpuscular Volume 90.1 fL (80.0-98.0); NRBC Abs Auto 0.000 X10*3/uL (0.0-0.012); NRBC Pct Auto 0.0 /100WBC (0.0-0.2); Platelet Count 218 X10*3/uL (160-400); Red Blood Count 5.54 X10*6/uL (4.60-5.80); White Blood Count 6.5 X10*3/uL (4.8-10.8)
[2025-03-17 09:14] LABS: Alanine Aminotransferase 50 U/L (0-40); Albumin Level 4.7 g/dL (3.5-5.0); Alkaline Phosphatase 111 U/L (39-117); Anion Gap 12 (12-20); Aspartate Amino Transferase 34 U/L (5-37); Blood Urea Nitrogen 19 mg/dL (9-16); Calcium 9.6 mg/dL (8.4-10.2); Carbon Dioxide 28 mmol/L (22-29); Chloride 104 mmol/L (96-108); Cholesterol 137 mg/dL (<200); Estimated Glomerular Filt Rate 51; HDL Cholesterol 43 mg/dL (>40); Potassium 5.1 mmol/L (3.3-5.1); Sodium 139 mmol/L (135-145); Total Protein 7.9 g/dL (6.5-8.0); Triglycerides 58 mg/dL (<150)
[2025-03-17 10:55] LABS: Free T4 (Free Thyroxine) 0.93 ng/dL (0.71-1.85)
== END 2025-03-17 07:51 | disposition home or self-care (01) ==
LOC: HO.LAB 07:50
PROVIDERS: PCP Physician Assistant; Visit Provider Physician Assistant
DX: E78.2 Mixed hyperlipidemia (principal); R79.89 Other specified abnormal findings of blood chemistry
CPT/HCPCS: 36415; 80053; 80061; 84439; 84443; 85027

== ENCOUNTER 2025-03-30 07:53 | Outpatient (AMB) | payer OTHER, SELFPAY ==
--- NOTE | 2025-03-30 07:58 | MHC.PC.OV ---
Vital Signs 03/30/25 07:59 Height 6 ft 2 in Weight 226 lb BMI 29.0 BP 142/82 H Blood Pressure Location Lt brachial Position Sitting Pulse 74 Pulse Source Pulse Oximeter Pulse Oximetry (%) 97 Oxygen Delivery Method Room Air Intake Visit Reasons: Annual Exam Allergies No Known Allergies Allergy (Verified 03/30/25 08:09) Medication List - Last Reconciled 03/30/25 by Jp Yi PA-C aspirin 81 mg PO DAILY atorvastatin (Lipitor) 40 mg (1/2 x 80 mg) PO DAILY clopidogrel 75 mg PO DAILY omeprazole 40 mg PO DAILY Tobacco use date assessed: 02/08/25 Dental Screening Dental Screen Date: 01/11/25 HPI Annual Exam HPI Details Patient is a 64 year-old male here today for a annual physical, patient has a past medical history significant for TIA, lumbar radiculopathy, history of her throat cancer status post radiation, hyperlipidemia and hypothyroidism. Throat cancer in s/p? chemo/ Radiation in 2018 , Report having chronic fatigue ever since? Has had low testoserone? and was placed on medication though never helped as chronic fatigue. History of Pulmonary embolism: Patient had pulmonary embolism to which 2 weeks after his hernia surgery. He was on Eliquis for a short period time () 3 months). Now off of Eliquis. Renal mass: Patient followed by [facility] Patient also has been found to have a Bosniak 4 right renal cystic lesions suspicious for malignancy. He has underwent a cryoablation. Lumbar radiculopathy: The patient reports a recurrence of severe sciatic pain that began a couple of months ago. The pain was initially controlled with a course of gabapentin, prednisone, and naproxen, but returned after he attempted to resume jogging. The pain is now triggered by walking and has become severe enough to disrupt his sleep, forcing him to sleep sitting up in a chair. He reports the pain is throbbing at night, radiates to his ankle, and is worsening his depression and anxiety. He has started physical therapy but believes it is ineffective and is concerned about the delay in obtaining an MRI, which he believes is necessary for diagnosis and potential treatment like a cortisone injection. Chronic fatigue : Still continues to complain of s fatigue on exertion. He reports he is still able to run 3 miles though becomes very fatigued more than usual. We have done labs including Lyme testing and mono testing which were all negative. Does have an elevated TSH and was started on levothyroxine though felt it made no difference in stop medication. We have done cardiac stress testing including an echo stress which essentially was stable He denies any chest discomfort or shortness of breath. We done some preliminary tick-borne illness testing though was negative. .. History of throat cancer: Has followed up with ENT specialist and received a fiberoptic scope without any recurrence of malignancy noted. .. hypothyroid: Patient's TSH is still remains slightly elevated. Was on levothyroxine in the past though felt it did not help him with his energy. Recommended to restart levothyroxine to help normalize his TSH number though patient declines at this time and still considering. Vaccine: UTD with COVID Vaccine,? Declines Flu vacine.? UTD with Tdap, declines Shingrex. .. Colon cancer screening:? Has not had a colonoscopy, declines further colonoscopies at this time. Of note does have a father who had pancreatic cancer in his 80s. Laboratory Tests 03/28/21 03/13/22 04/21/24 08:14 08:15 08:09 RBC Creatinine Fasting Glucose 107 H 100 H AST ALT Cholesterol 210 240 TSH 5.20 H 5.71 H 4.21 H Total Testosterone 570 03/17/25 07:58 RBC 5.54 Creatinine 1.40 Fasting Glucose AST 34 ALT 50 H Cholesterol TSH 5.36 H Total Testosterone PFSH Medical History Hypothyroid GERD (gastroesophageal reflux disease) HLD (hyperlipidemia) Pulmonary embolism Renal mass History of throat cancer Surgical History H/O hernia repair Family History Father Pancreatic cancer Mother Lung cancer Social History Household Members: Significant Other Housing: House Are you a primary caretaker grounds to a significant other at home: No Do you presently have visiting nurse or other home services: No Alcohol intake: current Alcohol intake frequency: holidays/special occasions only Patient Tobacco Use Status: Never used Tobacco Tobacco use type: Cigarette e-Cigarette/Vaping Use: Never Used Second Hand Smoke Exposure: No service: Yes Current occupational status: employed 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 Current occupational exposures/hazards: No Cognitive needs: No Hearing needs: No Vision needs: Yes (Glasses) Questionnaire PHQ-9 Over the last 2 weeks, how often have you been bothered by any of the following problems? 1. Little interest or pleasure in doing things: not at all 2. Feeling down, depressed, or hopeless: not at all 3. Trouble falling or staying asleep, or sleeping too much: several days 4. Feeling tired or having little energy: nearly every day 5. Poor appetite or overeating: not at all 6. Feeling bad about yourself - or that you are a failure or have let yourself or your family down: not at all 7. Trouble concentrating on things, such as reading the newspaper or watching television: not at all 8. Moving or speaking so slowly that other people could have noticed. Or the opposite - being so fidgety or restless that you have been moving around a lot more than usual: not at all 9. Thoughts that you would be better off or of hurting yourself in some way: not at all Total score: 4 Depression Screening Interpretation: Positive Depression Screening Follow-up: Existing condition Depression Screening Done: Yes 20671 - PHQ-9 Billing: Yes Source: Developed by Drs. Steve Gutierrez, Tala Pelletier, Shaquille Christine and colleagues, with an educational shahida from [employer]. Thrive Questionnaire Date Thrive assessed: 09/02/24 AUDIT C Alcohol Use Questionnaire (AUDIT-C) 1. How often do you have a drink containing alcohol?: Monthly or less 2. How many drinks containing alcohol do you have on a typical day when you are drinking?: 1 or 2 3. How often do you have six or more drinks on one occasion?: Never Total Score: 1 Score Reviewed/Action Taken: No NEEL-7 AMB Questionnaire NEEL-7 Date NEEL - 7 assessed: 09/02/24 Source: Developed by Drs. Steve Gutierrez, Tala Pelletier, Shaquille Christine and colleagues, with an educational shahida from [employer]. Review of Systems Const Denies body aches, Denies chills, Denies excessive sweating, Denies fatigue, Denies fever(s) and Denies headache(s) Eyes Denies blurry vision ENT Denies dysphagia, Denies vertigo, Denies dizziness, Denies headache(s), Denies hearing loss and Denies tinnitus Card Denies chest pain, Denies chest pain with activity, Denies syncope, Denies irregular heart rhythm and Denies dyspnea Resp Denies chest congestion, Denies cough, Denies hemoptysis, Denies dyspnea and Denies wheezing GI Denies abdominal pain, Denies melena, Denies hematochezia, Denies coffee ground emesis, Denies dysphagia, Denies diarrhea, Denies nausea and Denies vomiting Denies difficulty urinating, Denies dysuria, Denies urinary frequency, Denies urinary hesitancy and Denies urinary urgency Musc Denies arthralgias, Denies limited range of motion, Denies muscle cramps and Denies muscle weakness Skin/Breast Denies rash and Denies skin ulcer Neuro Denies Abnormal speech present, Denies confusion, Denies vertigo, Denies dizziness, Denies syncope, Denies headache(s), Denies memory loss and Denies seizure-like activity Psych Denies anxiety, Denies confusion, Denies depression, Denies memory loss, Denies panic attacks and Denies paranoia Endo Denies excessive sweating, Denies fatigue, Denies flushing, Denies polydipsia and Denies polyuria Aller/Immun Denies wheezing Physical exam (Primary Care) Vital Signs: Last Vital Signs Pulse 74 03/30/25 07:59 BP 142/82 H 03/30/25 07:59 Pulse Ox 97 03/30/25 07:59 Oxygen Delivery Method Room Air 03/30/25 07:59 BMI result Body Mass Index 29.0 Tobacco/Smoking Status: Tobacco use Status Tobacco use date assessed 02/08/25 03/30/25 08:04 Patient Tobacco Use Status Never used Tobacco 03/30/25 08:04 Tobacco use type Cigarette 03/30/25 08:04 e-Cigarette/Vaping Use Never Used 03/30/25 08:04 PHQ-9: PHQ-9 Score PHQ-9: Total score 4 03/30/25 08:04 Depression Screening Interpretation: Positive Depression Screening Follow-up: Existing condition Thrive Assessment: Date of Thrive Assessment Date Thrive assessed 09/02/24 03/30/25 08:04 Const General: cooperative, comfortable, no acute distress, alert and awake; No confusion Orientation/consciousness: oriented to person, oriented to place, patient oriented x3 and No confusion HENMT Head: Yes normocephalic Ears: external ears normal and TM's normal bilaterally Face and sinus: No sinus tenderness Mouth: Normal oral and palatal mucosa present and tongue normal Teeth and gingiva: dentition normal and gingiva normal Throat: Yes posterior oropharynx normal, Yes tonsils normal and Yes uvula midline Eyes Conjunctivae: conjunctivae normal Sclerae: sclerae normal Pupils: Equal, round and reactive pupils present EOM: EOMs intact bilaterally Direct Ophthalmoscopy: No no photophobia Neck Neck: Yes no lymphadenopathy, No tender and Yes no JVD Thyroid: Thyroid normal Carotids: no bruits Chest Chest palpation & inspection: no tenderness Resp Effort & Inspection: normal respiratory effort, no audible wheezes, not labored and no stridor Auscultation: no crackles, no rales, no rhonchi and no wheezes Cardio Jugular venous distension: no JVD Rate: regular rate, not bradycardic and not tachycardic Rhythm: regular rhythm Bruits: no carotid bruits Peripheral pulses: Peripheral pulses 2+ throughout GI Inspection: Yes normal to inspection, No abdominal wall ecchymosis and No visible herniation Palpation (GI): Soft to palpation, nontender, no guarding, not rigid and No hepatosplenomegaly present Auscultation: normoactive bowel sounds General: Yes no CVA tenderness Back/Spine/Pelvis Other: LIMITED RANGE OF MOTION OF LUMBAR SPINE DUE TO PAIN AND STIFFNESS Back: no CVA tenderness and No back tenderness Cervical Spine: cervical ROM normal Thoracic/Lumbar Spine: thoracic and lumbar spine normal to inspection, straight leg raise negative bilaterally, No thoraco-lumbar ROM limited and No lumbar spinal tenderness Back/spine/pelvis image:  1. PINCHING QUALITY PAIN ORIGINATING IN THE AREA OUTLINED Skin Lesions: no lesions Rashes: no rashes Wounds: no wounds Neuro General: oriented to person, oriented to place, patient oriented x3, CN's II-XI intact bilaterally and No confusion Cranial nerves: Yes Equal, round and reactive pupils present and Yes Normal accommodation reflex present Cognition (Neuro): normal cognition Speech: No Abnormal speech present Gait exam (Neuro): Normal gait present Motor exam (neuro): 5/5 motor strength present throughout Extrem Right upper extremity: full ROM; no cyanosis Left upper extremity: full ROM; no cyanosis Right lower extremity: no edema Left lower extremity: no edema Psych Appearance: grossly normal Mental Status: mental status grossly normal Affect: normal affect Attitude: cooperative Thought process: Normal thought process present Coding Level of Care Code Est Pt Prev Care 40-64y([id number]) Diagnoses Annual physical exam Z00.00 Lumbar radiculopathy M54.16 Elevated TSH R79.89 Mixed hyperlipidemia E78.2 Hyperlipidemia type: mixed hyperlipidemia Acute pulmonary embolism, unspecified pulmonary embolism type, unspecified whether acute cor pulmonale present I26.99 Acute cor pulmonale presence: unspecified Chronicity: acute Pulmonary embolism type: unspecified Acquired complex renal cyst N28.1 NEEL (generalized anxiety disorder) F41.1 Additional Codes PHQ-9 - 82261 - PHQ-9 Billing: Yes ([id number]) Assessment & Plan Assessment & Plan (1) Annual physical exam: Code(s): Z00.00 - Encounter for general adult medical examination without abnormal findings Category: Medical Plan: As per HPI (2) Lumbar radiculopathy: Code(s): M54.16 - Radiculopathy, lumbar region Category: Medical Plan: For the patient's severe sciatica, the plan is to restart the same dose of gabapentin and naproxen that previously provided relief. I will attempt to order an MRI of the lumbar spine, citing the 5-6 month duration of symptoms and failure of conservative management, including physical therapy. I will also contact his pain management provider to advocate for an injection, given his poor response to physical therapy. 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 (3) Elevated TSH: Code(s): R79.89 - Other specified abnormal findings of blood chemistry Category: Medical Plan: Patient continues to have elevated TSH, he is not interested in returning back to use levothyroxine as he felt it was not effective for him. (4) HLD (hyperlipidemia): Code(s): E78.5 - Hyperlipidemia, unspecified Category: Medical Qualifiers: Hyperlipidemia type: mixed hyperlipidemia Qualified Code(s): E78.2 - Mixed hyperlipidemia Plan: Patient's most recent lipid panel showing excellent control of his total cholesterol and LDL. Continues on statin therapy without side effect. Goal LDL is to remain below 100 (5) Pulmonary embolism: Code(s): I26.99 - Other pulmonary embolism without acute cor pulmonale Category: Medical Qualifiers: Acute cor pulmonale presence: unspecified Chronicity: acute Pulmonary embolism type: unspecified Qualified Code(s): I26.99 - Other pulmonary embolism without acute cor pulmonale Plan: Had a pulmonary embolism status post surgery for hernia repair in May of 2024. Was on 3 months of Eliquis now off of medication. (6) Acquired complex renal cyst: Code(s): N28.1 - Cyst of kidney, acquired Category: Medical Plan: Followed by Urology, he is status post cryoablation. he reports he urinates well (7) NEEL (generalized anxiety disorder): Code(s): F41.1 - Generalized anxiety disorder Category: Medical Plan: Patient's NEEL-7 score positive for anxiety which has been existing condition for him. He reports anxiety and depression has been elevated lately due to his lower back sciatic pain. Orders: Orders MR lumbar spine wo con Today M54.16 - Radiculopathy, lumbar region Medications: New naproxen 500 mg PO BID 28 tabs 0RF 14 days M54.16 - Radiculopathy, lumbar region gabapentin 300 mg PO BID 60 caps 1RF 30 days M54.16 - Radiculopathy, lumbar region
[2025-03-30 07:59] VITALS: BP 142/82; PULSE 74; O2SAT 97; BMI 29.0
== END 2025-03-30 08:39 | disposition home or self-care (01) ==
LOC: HO.HMCH 07:53
PROVIDERS: PCP Physician Assistant; Visit Provider Physician Assistant
DX: Z00.00 Encounter for general adult medical examination without abnormal findings (principal); I26.99 Other pulmonary embolism without acute cor pulmonale; E78.2 Mixed hyperlipidemia; N28.1 Cyst of kidney, acquired; M54.16 Radiculopathy, lumbar region; R79.89 Other specified abnormal findings of blood chemistry

== ENCOUNTER → 2025-03-30 07:53 | Outpatient (BNVA) | payer OTHER, SELFPAY | PROVIDERS: PCP Physician Assistant; Visit Provider Physician Assistant | DX: Z13.31 Encounter for screening for depression (principal) | CPT/HCPCS: 96127 ==